=== PATIENT | female | born 1945 | race Caucasian/White ===

== ENCOUNTER → 2020-08-16 09:29 | Outpatient (CLI) | payer MEDICARE, BC, SELFPAY ==
[2020-08-16 11:20] LABS: BUN Creatinine Ratio 38.5 (6-22); Blood Urea Nitrogen 20 mg/dL (7-17); Calcium 10.3 mg/dL (8.4-10.2); Carbon Dioxide 28 mmol/L (22-32); Chloride 104 mmol/L (98-107); Estimated Glomerular Filt Rate > 60.0 mL/min (>60); Glucose 92 mg/dL (80-110); HEMOLYSIS < 15 (0-50); Potassium 4.3 mmol/L (3.4-5.1); Sodium 141 mmol/L (137-145)
== END ==
PROVIDERS: PCP Student in an Organized Health Care Education/Training Program; Referring Provider Student in an Organized Health Care Education/Training Program; Visit Provider Student in an Organized Health Care Education/Training Program
DX: M81.0 Age-related osteoporosis without current pathological fracture (principal); Z78.0 Asymptomatic menopausal state; N14.1 Nephropathy induced by other drugs, medicaments and biological substances; T50.8X5A Adverse effect of diagnostic agents, initial encounter
CPT/HCPCS: 36415; 77080; 80048

== ENCOUNTER → 2020-08-24 15:59 | Outpatient (CLI) | payer MEDICARE, BC, SELFPAY ==
--- NOTE | 2020-08-24 16:01 | DI.MG.S_ITS ---
BILATERAL DIGITAL SCREENING MAMMOGRAM 3D/2D WITH CAD: 08/24/2020 CLINICAL: Routine screening. Family history of breast cancer. Comparison is made to exams dated: 07/11/2019 mammogram, 03/01/2018 mammogram, and 02/06/2017 mammogram - outside location. The tissue of both breasts is heterogeneously dense. This may lower the sensitivity of mammography. Current study was also evaluated with a Computer Aided Detection (CAD) system. No significant masses, calcifications, or other findings are seen in either breast. There has been no significant interval change. IMPRESSION: NEGATIVE There is no mammographic evidence of malignancy. A 1 year screening mammogram is recommended. This exam was interpreted at Station ID: [id number]. NOTE: For mammograms, a report in lay terms will be sent to the patient. Approximately 15% of breast malignancies will not be visualized mammographically. In the management of a palpable breast mass, a negative mammogram must not discourage biopsy of a clinically suspicious lesion. Electronically Signed By: Luís diamond/tim:08/27/2020 09:00:34 letter sent: Normal Exam ACR BI-RADS Category 1: Negative [id number]
[2020-08-24 16:10] LABS: Bacteria Urine None Seen; RBC Urine None Seen (0-5/HPF)
[2020-08-24 17:10] LABS: Prothrombin Time 11.4 SECONDS (10.1-12.7)
[2020-08-24 17:13] LABS: PTT Partial Thromboplastin Tim 33 SECONDS (26.4-36.2)
[2020-08-24 17:28] LABS: Add Manual Diff / Slide Review NO; Basophils Absolute Auto 100 /uL (0-100); Basophils Percent Auto 1.3 % (0-2); Eosinophils Absolute Auto 200 /uL (0-450); Eosinophils Percent Auto 2.7 % (2-4); Hematocrit 40.2 % (36-46); Lymphocytes Absolute Auto 1400 /uL (1100-4500); Lymphocytes Percent Auto 20.2 % (25-40); Mean Corpuscular HGB Conc 32.4 % (30-36); Mean Corpuscular Hemoglobin 29.4 PG (26-34); Mean Corpuscular Volume 90.9 fL (80-100); Monocytes Absolute Auto 600 /uL (0-900); Monocytes Percent Auto 9.5 % (3-14); Neutrophils Absolute Auto 4500 /uL (1500-7000); Neutrophils Percent Auto 66.3 % (50-75); Platelet Count 245 X10^3/uL (150-400); Red Blood Cell Count 4.42 X10^6/uL (4.0-5.2); Red Cell Distribution Width 14.5 % (11.6-14.8); White Blood Cell Count 6.7 X10^3/uL (4.5-11.0)
[2020-08-24 17:43] LABS: Alanine Aminotransferase 44 IU/L (<35); Albumin 4.1 g/dL (3.5-5.0); Albumin Globulin Ratio 1.5 (1.0-2.8); Alkaline Phosphatase 119 U/L (38-126); Aspartate Aminotransferase 37 IU/L (14-36); Bilirubin Total 0.3 mg/dL (0.2-1.3); Bilirubin Unconjugated 0.3 mg/dL (0.0-1.1); Globulin 2.7 g/dL (1.7-4.1); HEMOLYSIS < 15 (0-50); Total Protein 6.8 g/dL (6.3-8.2)
[2020-08-24 18:05] LABS: Appearance Urine UA SL CLOUDY; Bilirubin Urine UA NEGATIVE (NEGATIVE); Color Urine UA YELLOW; Glucose Urine UA NEGATIVE (Negative); Ketones Urine UA NEGATIVE (NEGATIVE); Leukocyte Esterase Urine UA NEGATIVE (NEGATIVE); Nitrite Urine UA NEGATIVE (Negative); Occult Blood Urine UA NEGATIVE (Negative); Protein Urine UA NEGATIVE (Negative); Urobilinogen Urine UA 0.2 E.U./dL (0.2)
[2020-08-24 19:09] LABS: Squamous Epithelial Cell Urine 0-1 /HPF (0-5/HPF); Transitional Epi Cells Urine 0-1/HPF (0-5/HPF); WBC Urine 0-1/HPF (0-5/HPF)
[2020-08-24 19:38] LABS: Culture Indicated Urine Cult Not Indicated
== END ==
PROVIDERS: PCP Student in an Organized Health Care Education/Training Program; Referring Provider Student in an Organized Health Care Education/Training Program; Visit Provider Student in an Organized Health Care Education/Training Program
DX: Z12.31 Encounter for screening mammogram for malignant neoplasm of breast (principal); I10 Essential (primary) hypertension; I60.9 Nontraumatic subarachnoid hemorrhage, unspecified
CPT/HCPCS: 36415; 77063; 77067; 80076; 81001; 85025; 85610; 85730

== ENCOUNTER → 2020-08-29 15:41 | Outpatient (CLI) | payer MEDICARE, BC, SELFPAY ==
[2020-08-29] MEDS: COVID-19 VACC, Ad26(JANSSEN)/PF 0.5 ML IM (15:56)
== END ==
PROVIDERS: PCP Student in an Organized Health Care Education/Training Program; Visit Provider Internal Medicine
DX: Z23 Encounter for immunization (principal)
CPT/HCPCS: 0031A; 91303

== ENCOUNTER 2020-11-01 10:30 | Outpatient (RCR) | payer MEDICARE, BC, SELFPAY ==
--- NOTE | 2020-09-12 17:15 | ST.OPIE ---
Visit Care Team Role Provider Type Gutierrez Friedman MD Attending Provider Physician Primary Care Provider Referring Provider Specialty: Internal Medicine Address: [address] [place] [address], [address], [place], [address] Email: [email or web address] Speech-Language Pathology Initial Evaluation EDIT[employer] Adult Cognitive Linguistic Eval Start: 09/11/20 15:46 Freq: Status: Active Protocol: Document 09/11/20 16:17 HM (Rec: 09/11/20 17:39 HM [id number]) Adult Cognitive Linguistic Evaluation Session Time Visit Start Time 11:30 Visit Stop Time 12:30 Total Visit Minutes 60 Visit Information Visit Number 1 Plan of Care Dates 09/11/20-03/13/21 Insurance Information Medicare Referral Referring Provider Gutierrez Friedman Reason for Referral Cognition and word-finding deficits Setting Assessment Location Outpatient Care Visit Type Note Type Initial evaluation Next Note Type Next Note Type Treatment Note Patient Information Identification Type Name,Address,Date of Medical History Marisa is a 75-year-old female referred by her primary care physician for a cognitive- communication and language assessment due to cognitive impairment and word-finding difficulty. Per chart review and pt report, these symptoms are secondary to a hemorrhagic stroke which occurred in May 2020. Pt received ST/ OT/PT home health services in [place] for one month after the CVA. She recently moved back to [place] to be closer to family, but lives alone. Pt's daughter, Jackelin, attended the evaluation with her. Jackelin reported that pt frequently becomes confused and is unable to complete sequences of events, or sequence parts of a story. Also, pt perseverates during conversation or tasks by getting stuck. Current compensatory strategies used include notes throughout the kitchen with reminders (e.g., turning on or off the oven), and intentional focus during tasks. Occupation Status Retired Hearing Hearing Level Normal Auditory History Pt reported hearing problems, but appeared to hear and understand. Unsure if pt was wearing hearing aids. Vision Vision Status Not Impaired Previous Therapy Previous Speech-Language Therapy Yes: Received home health services in [place] for 1 month post CVA Subjective Mental Status Alert,Responsive,Cooperative Assessment Oral Motor Examination Completed No: Informal observation of structures and function was WNL Informal Assessment Expressive Language Normal No Expressive Language Impairment(s) Confrontation naming, Expression of complex thoughts /ideas Pragmatic Language Normal Yes Speech Normal Yes Cognition Normal No Cognitive Impairment(s) Long-term memory,Executive functioning,Problem solving, Safety awareness Formal Assessment Standardized Test/Screener Type Cognitive Linguistic Quick Test (CLQT) Administration Incomplete Results The CLQT subtest for Story Retelling was not completed, but will be administered during the next session. The results of the CLQT are reported over 5 cognitive domains along with a clock drawing task. The domains assessed include: Attention, Memory, Executive Functions, Language, and Visuospatial Skills. During this visit, Marisa scored WNL for the domains of Executive Functions and Visuospatial Skills. Test tasks which proved to be particularly difficult as Marisa's scores were below criterion levels: 1. Clock drawing (visuospatial planning and conceptualization of time ) and 2. Mazes (planning, self -monitoring, and mental flexibility). The remaining domains of Attention, Memory, and Language will be scored after the following session. In addition to the CLQT, Marisa completed the [place] Naming Test (BNT). The BNT is a normative assessment which measures confrontational word retrieval. Marisa provided 41/ 60 correct spontaneous responses. She had 3 additional responses when provided a stimulus cue, for a total of 44/60 correct. This is below the mean score of 48. 9 for her age group. Findings/Results Language Function Mildly impaired Cognitive Function Mildly impaired Findings While CLQT scores led to a mild severity rating, pt report and below-criterion scores for the Clock Drawing and Mazes tasks indicate difficulty with planning, foresight, self-monitoring, mental flexibility, and visuospatial skills. This suggests overall difficulty with executive functioning such as planning, preparing, completing, and modifying ADL tasks as needed. During practice tasks for the Symbol Trails subtest, ozzie was unable to form a trail alternating between shapes in a cohesive order. Additionally, she made errors when connecting circles of increasing size. When completing the clock drawing, she initially mixed up the short and long hands before attempting to self-correct. Combined, these errors are a noteworthy indication of poor planning, preparation, carry through, and self-evaluation for complex tasks. Marisa's score on the BNT is consistent with reported word- retrieval difficulty. She used circumlocution during moments of anomia. When she could not retreive the word after circumlocution, she responded correctly after given a phonemic cue or multiple choice option. Marisa's diminished cognitive skills impact her ability to plan, execute, and complete her ADLs. Combined with her word retrieval deficits, it would be difficult for her to function and be safe living independently. Cognitive Communication Deficits Self-awareness of Cognitive- Situational awareness ( Communication Deficits recognition of problem in context;in real time) Concomitant Factors Concomitant Factors Hearing loss Comment Pt reported hearing loss. Impact on Functioning Activity Limits/Particip.Rest. Mod: General Tasks and Demands Interpersonal Interactions Community Sev: Household Tasks Safety Risks Mod: Managing Medication Sev: Being Left Alone at Home Reacting to Emergency Traveling Alone in Community Prognosis Prognosis Good Based on Family support,Time since onset Plan of Care Speech-Language Treatment Yes Frequency 1x/week for 60 minutes Duration 6 months Patient/Caregiver Education Patient expressed understanding of evaluation, Patient expressed agreement with goals and treatment plans ,Family/caregivers expressed understanding of evaluation, Family/caregivers expressed agreement with goals and treatment plan,Patient requires further education/ training Short Term Goals Pt/family will identify ADLs that are impacted by cognitive -communication difficulties. Pt/family will utilize a variety of external memory aids for functional planning and safety needs (e.g., whiteboard with important information and plans). Pt/family will produce 5/6 semantic features of an object in 10 opportunities, when given a semantic features visual aid and picture stimulus. Radiologic Technologist Chief Goals Pt/family will demonstrate independent use of external strategies (e.g., memory aids, Ecvn-Drea-Nn-Review) for a variety of tasks. Pt will demonstrate increased communication effectiveness and efficiency by utilizing strategies during moments of anomia (e.g., describing semantic features, gestures). Discharge Recommendations Outpatient therapy [employer] Clinical Instructor Line Start: 09/12/20 16:51 Freq: Status: Active Protocol: Document 09/12/20 16:51 LNK (Rec: 09/12/20 16:51 LNK [id number]) Clinical Instructor Signature Clinical Instructor Clinical Instructor Yes
--- NOTE | 2020-09-21 17:01 | ST.OPTN ---
Visit Care Team Role Provider Type Gutierrez Friedman MD Attending Provider Physician Primary Care Provider Referring Provider Address: [address] [place] [address], [address], [place], [address] SOLDERER TORCH Treatment Note SOLDERER [employer]CH Clinical Instructor Line Start: 09/12/20 16:51 Freq: Status: Active Protocol: Document 09/21/20 15:05 LNK (Rec: 09/21/20 15:05 LNK [id number]) Clinical Instructor Signature Clinical Instructor Clinical Instructor Yes SOLDERER TORCH Treatment Note Start: 09/11/20 15:46 Freq: Status: Active Protocol: Document 09/18/20 16:51 HM (Rec: 09/18/20 17:49 HM [id number]) Speech Pathology Treatment Note Session Time Visit Start Time 03:30 Visit Stop Time 04:30 Total Visit Minutes 60 Visit Information Visit Number 2 Plan of Care Dates 09/11/20-03/13/21 Insurance Information Medicare Setting Treatment Setting Outpatient Care Visit Type Note Type Treatment Note Next Note Type Next Note Type Treatment Note General Information General Information Marisa is a 75-year-old female referred by her primary care physician for a cognitive- communication and language assessment due to cognitive impairment and word-finding difficulty. Per chart review and pt report, these symptoms are secondary to a hemorrhagic stroke which occured in May 2020. Pt received ST/ OT/PT home health services in [place] for one month after the CVA. She recently moved back to [place] to be closer to family, but lives alone. Pt's daughter, Jackelin, attended the evaluation with her. Jackelin reported that pt frequently becomes confused and is unable to complete sequences of events, or sequence parts of a story. Also, pt perseverates during conversation or tasks by getting stuck. Current compensatory strategies used include notes throughout the kitchen with reminders (e.g., turning on or off the oven), and intentional focus during tasks. Subjective Identification Type Name Identification Reconciled With Medical Record Others Present Family Observations/Patient Presentation Marisa's daughter, Jackelin, was present during the session. She reported a neurologist visit is scheduled for November. Chief Complaint(s) Language,Cognitive Rehab Expectation/Goals: Patient Goals Increase independence and do things like she used to. Patient Knowledge/Awareness of SOLDERER [employer]ORCH Role Excellent in Treatment Parent/Caretake Knowledge/Awareness of Excellent SOLDERER [employer]ORCH Role in Treatment Patient/Caregiver Compliance with Home Excellent Exercise Program Objective Short Term Goals Pt/family will identify ADLs that are impacted by cognitive -communication difficulties. Pt/family will utilize a variety of external memory aids for functional planning and safety needs (e.g., whiteboard with important information and plans). Pt/family will produce 5/6 semantic features of an object in 10 opportunities, when given a semantic features visual aid and picture stimulus. Prison Goals Pt/family will demonstrate independent use of external strategies (e.g., memory aids, Sawx-Razz-Mo-Review) for a variety of tasks. Pt will demonstrate increased communication effectiveness and efficiency by utilizing strategies during moments of anomia (e.g., describing semantic features, gestures). Treatment Activities Marisa completed one subtest of the CLQT that wasn't completed during her evaluation. The findings of her overall scores are consistent with mild cognitive deficits impacting overall executive functioning. These scores were discussed with Mairsa and Jackelin. In particular , driving was discussed and how difficulty with planning, monitoring, and evaluating self-performance impact safety while driving. Marisa reported she has a command center with a large calendar and whiteboard for tracking important appointments and dates. Pt completed a list of high priority yet challenging tasks , including balancing a checkbook, driving, and scheduling appointments. Pt and daughter, Jackelin, identified steps to ease scheduling challenges. Pt was provided a GPDR worksheet for balancing a checkbook. Introduced Semantic Feature Analysis (SFA) in order to develop word-finding skills and communicative strategies during moments of anomia. Pt completed SFA for 3 objects, identifying 5/6 features when provided question prompts. Assessment Patient Response to Treatment Excellent Rehab Potential Excellent Impairments Identified ADLs,Cognitive-Linguistic Skills,Expressive Language, Memory - Working,Problem Solving Progress Towards Goals Good Progress Assessment of Overall Progress Improving,Unchanged Assessment of Improvement Marisa has developed some excellent strategies for organizing important dates and information at home. Word- finding and working memory/ executive functioning continues to be a challenge. Recommend additional practice with SFA and utilizing external and internal memory aides. Reviewed with Patient Goals,Home Exercise Program Patient/Caregiver Understanding Excellent Plan Amount of Therapy Recommended 6 Months Frequency of Treatment Once a Week Length of Session 60 Minutes Therapeutic Contents Client Education,Cognitive- Linguistic Training,Expressive Language Training,Home Exercise Program Therapy Recommendations Continue with Current Program, Recommended Exercises/ Activities
--- NOTE | 2020-09-25 16:57 | ST.OPTN ---
Visit Care Team Role Provider Type Gutierrez Friedman MD Attending Provider Physician Primary Care Provider Referring Provider Address: [address] [place] [address], [address], [place], [address] MANAGER STRATEGIC Treatment Note MANAGER STRATEGIC Clinical Instructor Line Start: 09/12/20 16:51 Freq: Status: Active Protocol: Document 09/25/20 16:53 LNK (Rec: 09/25/20 16:53 LNK [email or web address]) Clinical Instructor Signature Clinical Instructor Clinical Instructor Yes MANAGER STRATEGIC Treatment Note Start: 09/11/20 15:46 Freq: Status: Active Protocol: Document 09/25/20 16:23 HM (Rec: 09/25/20 16:36 HM [id number]) Speech Pathology Treatment Note Session Time Visit Start Time 15:30 Visit Stop Time 16:15 Total Visit Minutes 45 Visit Information Visit Number 3 Plan of Care Dates 09/11/20-03/13/21 Insurance Information Medicare Setting Treatment Setting Outpatient Care Visit Type Note Type Treatment Note Next Note Type Next Note Type Treatment Note General Information General Information Marisa is a 75-year-old female referred by her primary care physician for a cognitive- communication and language assessment due to cognitive impairment and word-finding difficulty. Per chart review and pt report, these symptoms are secondary to a hemorrhagic stroke which occurred in May 2020. Pt received ST/ OT/PT home health services in [place] for one month after the CVA. She recently moved back to [place] to be closer to family, but lives alone. Pt's daughter, Jackelin, attended the evaluation with her. Jackelin reported that pt frequently becomes confused and is unable to complete sequences of events, or sequence parts of a story. Also, pt perseverates during conversation or tasks by getting stuck. Current compensatory strategies used include notes throughout the kitchen with reminders (e.g., turning on or off the oven), and intentional focus during tasks. Subjective Identification Type Name Identification Reconciled With Medical Record Observations/Patient Presentation Marisa attended the appointment on her own. Chief Complaint(s) Language,Cognitive Rehab Expectation/Goals: Patient Goals Increase independence and do things like she used to. Patient Knowledge/Awareness of MANAGER STRATEGIC Role Excellent in Treatment Parent/Caretake Knowledge/Awareness of Excellent MANAGER STRATEGIC Role in Treatment Patient/Caregiver Compliance with Home Excellent Exercise Program Objective Short Term Goals Pt/family will identify ADLs that are impacted by cognitive -communication difficulties. Pt/family will utilize a variety of external memory aids for functional planning and safety needs (e.g., whiteboard with important information and plans). Pt/family will produce 5/6 semantic features of an object in 10 opportunities, when given a semantic features visual aid and picture stimulus. Customs Compliance Specialist Goals Pt/family will demonstrate independent use of external strategies (e.g., memory aids, Qdea-Bcdq-Yb-Review) for a variety of tasks. Pt will demonstrate increased communication effectiveness and efficiency by utilizing strategies during moments of anomia (e.g., describing semantic features, gestures). Treatment Activities Marisa brought her completed SFA forms and reviewed these with the clinician to clarify questions around the categories. Marisa reported that scheduling appointments has been okay when Jackelin gives her available times for providing transportation. Once Marisa has the times, she calls and schedule appointments independently. Marisa and the clinician developed a plan for organizing important documents and records into filing cabinets, including categories (e.g., financial) with subcategories (e.g, bills, taxes, bank statements, etc.) for files. Marisa was encouraged to sort and destroy any documents that are not necessary to keep. She was given a [employer] form for file organization. Assessment Patient Response to Treatment Excellent Rehab Potential Excellent Impairments Identified ADLs,Cognitive-Linguistic Skills,Expressive Language, Memory - Working,Problem Solving Progress Towards Goals Good Progress Assessment of Overall Progress Improving,Unchanged Assessment of Improvement Marisa has some large organizational projects coming up after her recent move with boxes on their way. Recommend additional discussion and strategy use to support completion of complex multi- step tasks. Marisa may benefit from additional practice with SFA to facilitate word-finding strategy use. Recommend discussion around [place] [employer] for when Jackelin is unable to provide transportation. Reviewed with Patient Goals,Home Exercise Program Patient/Caregiver Understanding Excellent Plan Amount of Therapy Recommended 6 Months Frequency of Treatment Once a Week Length of Session 60 Minutes Therapeutic Contents Client Education,Cognitive- Linguistic Training,Expressive Language Training,Home Exercise Program Therapy Recommendations Continue with Current Program, Recommended Exercises/ Activities
--- NOTE | 2020-10-02 17:44 | ST.OPTN ---
Visit Care Team Role Provider Type Gutierrez Friedman MD Attending Provider Physician Primary Care Provider Referring Provider Address: [address] [place] [address], [address], [place], [address] MEDICAL INSTRUMENT TECHNICIAN Treatment Note MEDICAL INSTRUMENT TECHNICIAN Clinical Instructor Line Start: 09/12/20 16:51 Freq: Status: Active Protocol: Document 10/02/20 17:26 LNK (Rec: 10/02/20 17:26 LNK [id number]) Clinical Instructor Signature Clinical Instructor Clinical Instructor Yes MEDICAL INSTRUMENT TECHNICIAN Treatment Note Start: 09/11/20 15:46 Freq: Status: Active Protocol: Document 10/02/20 16:44 HM (Rec: 10/02/20 16:53 HM [email or web address]) Speech Pathology Treatment Note Session Time Visit Start Time 15:30 Visit Stop Time 16:15 Total Visit Minutes 45 Visit Information Visit Number 4 Plan of Care Dates 09/11/20-03/13/21 Insurance Information Medicare Setting Treatment Setting Outpatient Care Visit Type Note Type Treatment Note Next Note Type Next Note Type Treatment Note General Information General Information Marisa is a 75-year-old female referred by her primary care physician for a cognitive- communication and language assessment due to cognitive impairment and word-finding difficulty. Per chart review and pt report, these symptoms are secondary to a hemorrhagic stroke which occurred in May 2020. Pt received ST/ OT/PT home health services in [place] for one month after the CVA. She recently moved back to [place] to be closer to family, but lives alone. Pt's daughter, Jackelin, attended the evaluation with her. Jackelin reported that pt frequently becomes confused and is unable to complete sequences of events, or sequence parts of a story. Also, pt perseverates during conversation or tasks by getting stuck. Current compensatory strategies used include notes throughout the kitchen with reminders (e.g., turning on or off the oven), and intentional focus during tasks. Subjective Identification Type Name Identification Reconciled With Medical Record Observations/Patient Presentation Marisa's daughter, Jackelin, was present during the session. Jackelin reported Marisa has had two occasions of walking downhill with crooked posture. Discussed a referral for PT to address possible vestibular changes post-stroke . Marisa is receiving new hearing aids tomorrow. Chief Complaint(s) Language,Cognitive Rehab Expectation/Goals: Patient Goals Increase independence and do things like she used to. Patient Knowledge/Awareness of MEDICAL INSTRUMENT TECHNICIAN Role Excellent in Treatment Parent/Caretake Knowledge/Awareness of Excellent MEDICAL INSTRUMENT TECHNICIAN Role in Treatment Patient/Caregiver Compliance with Home Excellent Exercise Program Objective Short Term Goals Pt/family will identify ADLs that are impacted by cognitive -communication difficulties. Pt/family will utilize a variety of external memory aids for functional planning and safety needs (e.g., whiteboard with important information and plans). Pt/family will produce 5/6 semantic features of an object in 10 opportunities, when given a semantic features visual aid and picture stimulus. Boom Tender Goals Pt/family will demonstrate independent use of external strategies (e.g., memory aids, Rzpl-Dgwv-Wq-Review) for a variety of tasks. Pt will demonstrate increased communication effectiveness and efficiency by utilizing strategies during moments of anomia (e.g., describing semantic features, gestures). Treatment Activities Marisa brought her completed SFA forms and reviewed these with the clinician to clarify questions around the categories. Discussed possibility of [place] [employer], although Marisa was hesitant to this idea. Jackelin suggested a trial run together to see if it would be a good option. Marisa described nouns using at least five Semantic Feature Analysis categories in 60% of opportunities. A home practice program was discussed, includin) practicing SFA with a guessing game such as Head's Up and 2) practicing conversation with uncommon topics to facilitate word retrieval and thought organization. Assessment Patient Response to Treatment Excellent Rehab Potential Excellent Impairments Identified ADLs,Cognitive-Linguistic Skills,Expressive Language, Memory - Working,Problem Solving Progress Towards Goals Good Progress Assessment of Overall Progress Improving,Unchanged Assessment of Improvement Recommend additional discussion and strategy use to support completion of complex multi-step tasks. Marisa may benefit from additional practice with SFA and uncommon conversation topics to facilitate word-finding strategy use. Recommend further discussion around [place] [employer] for when Jackelin is unable to provide transportation. Reviewed with Patient Goals,Home Exercise Program Patient/Caregiver Understanding Excellent Plan Amount of Therapy Recommended 6 Months Frequency of Treatment Once a Week Length of Session 60 Minutes Therapeutic Contents Client Education,Cognitive- Linguistic Training,Expressive Language Training,Home Exercise Program Therapy Recommendations Continue with Current Program, Recommended Exercises/ Activities
--- NOTE | 2020-10-16 17:34 | ST.OPTN ---
Visit Care Team Role Provider Type Gutierrez Friedman MD Attending Provider Physician Primary Care Provider Referring Provider Address: [address] [place] [address], [address], [place], [address] SUPERINTENDENT TRANSMISSION Treatment Note SUPERINTENDENT TRANSMISSION Clinical Instructor Line Start: 09/12/20 16:51 Freq: Status: Active Protocol: Document 10/16/20 17:02 LNK (Rec: 10/16/20 17:02 LNK [email or web address]) Clinical Instructor Signature Clinical Instructor Clinical Instructor Yes SUPERINTENDENT TRANSMISSION Treatment Note Start: 09/11/20 15:46 Freq: Status: Active Protocol: Document 10/16/20 16:32 HM (Rec: 10/16/20 16:39 HM [id number]) Speech Pathology Treatment Note Session Time Visit Start Time 15:30 Visit Stop Time 16:15 Total Visit Minutes 45 Visit Information Visit Number 6 Plan of Care Dates 09/11/20-03/13/21 Insurance Information Medicare Setting Treatment Setting Outpatient Care Visit Type Note Type Treatment Note Next Note Type Next Note Type Treatment Note General Information General Information Marisa is a 75-year-old female referred by her primary care physician for a cognitive- communication and language assessment due to cognitive impairment and word-finding difficulty. Per chart review and pt report, these symptoms are secondary to a hemorrhagic stroke which occured in May 2020. Pt received ST/ OT/PT home health services in [place] for one month after the CVA. She recently moved back to [place] to be closer to family, but lives alone. Pt's daughter, Jackelin, attended the evaluation with her. Jackelin reported that pt frequently becomes confused and is unable to complete sequences of events, or sequence parts of a story. Also, pt perseverates during conversation or tasks by getting stuck. Current compensatory strategies used include notes throughout the kitchen with reminders (e.g., turning on or off the oven), and intentional focus during tasks. Subjective Identification Type Name Identification Reconciled With Medical Record Observations/Patient Presentation Marisa's daughter, Jackelin, was present during the session. Chief Complaint(s) Language,Cognitive Rehab Expectation/Goals: Patient Goals Increase independence and do things like she used to. Patient Knowledge/Awareness of SUPERINTENDENT TRANSMISSION Role Excellent in Treatment Parent/Caretake Knowledge/Awareness of Excellent SUPERINTENDENT TRANSMISSION Role in Treatment Patient/Caregiver Compliance with Home Excellent Exercise Program Objective Short Term Goals Pt/family will identify ADLs that are impacted by cognitive -communication difficulties. Pt/family will utilize a variety of external memory aids for functional planning and safety needs (e.g., whiteboard with important information and plans). Pt/family will produce 5/6 semantic features of an object in 10 opportunities, when given a semantic features visual aid and picture stimulus. Skilled Nursing Goals Pt/family will demonstrate independent use of external strategies (e.g., memory aids, [id number]-[id number]-[id number]-Review) for a variety of tasks. Pt will demonstrate increased communication effectiveness and efficiency by utilizing strategies during moments of anomia (e.g., describing semantic features, gestures). Treatment Activities Pt reported she tried to contact the [facility] but couldn't get through. Provided pt with list of upcoming events, as well as information on a local [employer] organization. After a general check-in on memory and completion of tasks/ADLs, Marisa reported that she feels she is getting better. She notices her sustained attention while reading has improved when she reads easier books. Overall, attention to tasks is the concern at this time. Recommended setting a timer for 10 minutes to chip away at necessary tasks. Trialed various iPad applications to target attention and focus, including Luminosity, MindGames, and Wordscapes. Pt was eager to practice these at home. Assessment Patient Response to Treatment Excellent Rehab Potential Excellent Impairments Identified ADLs,Cognitive-Linguistic Skills,Expressive Language, Memory - Working,Problem Solving Progress Towards Goals Good Progress Assessment of Overall Progress Improving Assessment of Improvement Recommend continued counseling around volunteer opportunities and community events in the area. Marisa has made excellent progress with implementing strategies she's been given for word-finding and completing tasks. Continue to monitor her motivation to complete tasks and attention required to do so. Reviewed with Patient Goals,Home Exercise Program Patient/Caregiver Understanding Excellent Plan Amount of Therapy Recommended 6 Months Frequency of Treatment Once a Week Length of Session 60 Minutes Therapeutic Contents Client Education,Cognitive- Linguistic Training,Expressive Language Training,Home Exercise Program Therapy Recommendations Continue with Current Program, Recommended Exercises/ Activities
--- NOTE | 2020-11-01 12:06 | ST.OPTN ---
Visit Care Team Role Provider Type Gutierrez Friedman MD Attending Provider Physician Primary Care Provider Referring Provider Address: [address] [place] [address], [address], [place], [address] CHILD CARE PROVIDER Treatment Note CHILD CARE PROVIDER Clinical Instructor Line Start: 09/12/20 16:51 Freq: Status: Active Protocol: Document 10/16/20 17:02 LNK (Rec: 10/16/20 17:02 LNK [email or web address]) Clinical Instructor Signature Clinical Instructor Clinical Instructor Yes CHILD CARE PROVIDER Treatment Note Start: 09/11/20 15:46 Freq: Status: Active Protocol: Document 11/01/20 10:37 LNK (Rec: 11/01/20 12:06 LNK [email or web address]) Speech Pathology Treatment Note Session Time Visit Start Time 10:30 Visit Stop Time 11:30 Total Visit Minutes 60 Visit Information Visit Number 7 Plan of Care Dates 09/11/20-03/13/21 Insurance Information Medicare Setting Treatment Setting Outpatient Care Visit Type Note Type Treatment Note Next Note Type Next Note Type Treatment Note General Information General Information Marisa is a 75-year-old female referred by her primary care physician for a cognitive- communication and language assessment due to cognitive impairment and word-finding difficulty. Per chart review and pt report, these symptoms are secondary to a hemorrhagic stroke which occured in May 2020. Pt received ST/ OT/PT home health services in [place] for one month after the CVA. She recently moved back to [place] to be closer to family, but lives alone. Pt's daughter, Jackelin, attended the evaluation with her. Jackelin reported that pt frequently becomes confused and is unable to complete sequences of events, or sequence parts of a story. Also, pt perseverates during conversation or tasks by getting stuck. Current compensatory strategies used include notes throughout the kitchen with reminders (e.g., turning on or off the oven), and intentional focus during tasks. Subjective Identification Type Name Identification Reconciled With Medical Record Observations/Patient Presentation Marisa's daughter, Jackelin, was present during the session. Chief Complaint(s) Language,Cognitive Rehab Expectation/Goals: Patient Goals Increase independence and do things like she used to. Patient Knowledge/Awareness of CHILD CARE PROVIDER Role Excellent in Treatment Parent/Caretake Knowledge/Awareness of Excellent CHILD CARE PROVIDER Role in Treatment Patient/Caregiver Compliance with Home Excellent Exercise Program Objective Short Term Goals Pt/family will identify ADLs that are impacted by cognitive -communication difficulties. Pt/family will utilize a variety of external memory aids for functional planning and safety needs (e.g., white board with important information and plans). Pt/family will produce 5/6 semantic features of an object in 10 opportunities, when given a semantic features visual aid and picture stimulus. Fpc Goals Pt/family will demonstrate independent use of external strategies (e.g., memory aids, Uoza-Uwoh-Ew-Review) for a variety of tasks. Pt will demonstrate increased communication effectiveness and efficiency by utilizing strategies during moments of anomia (e.g., describing semantic features, gestures). Treatment Activities After a general check-in on memory and completion of tasks /ADLs, Marisa reported that she feeling better. She has started Lumocity and enjoys the activity. Today we played [email or web address] on the iPad to target executive functioning: planning , evaluation, executing, tracking ascending as well as descending numbers/ cards and to strategize. Marisa enjoyed the activity. She continues to target attention activities as she can become easily distracted. Continue to explore computer activities including Luminosity, MindGames, and Wordscapes. Assessment Patient Response to Treatment Excellent Rehab Potential Excellent Impairments Identified ADLs,Cognitive-Linguistic Skills,Expressive Language, Memory - Working,Problem Solving Progress Towards Goals Good Progress Assessment of Overall Progress Improving Assessment of Improvement Recommend continued counseling around volunteer opportunities and community events in the area. Marisa has made excellent progress with implementing strategies she's been given for word-finding and completing tasks. Continue to monitor her motivation to complete tasks and attention required to do so. Reviewed with Patient Goals,Home Exercise Program Patient/Caregiver Understanding Excellent Plan Amount of Therapy Recommended 6 Months Frequency of Treatment Once a Week Length of Session 60 Minutes Therapeutic Contents Client Education,Cognitive- Linguistic Training,Expressive Language Training,Home Exercise Program Therapy Recommendations Continue with Current Program, Recommended Exercises/ Activities
--- NOTE | 2021-01-01 16:59 | ST.OPDS ---
Visit Care Team Role Provider Type Gutierrez Friedman MD Attending Provider Physician Primary Care Provider Referring Provider Address: [address] [place] [address], [address], [place], [address] WIRE WEB WORKER Treatment Note WIRE WEB WORKER Clinical Instructor Line Start: 09/12/20 16:51 Freq: Status: Active Protocol: Document 10/16/20 17:02 LNK (Rec: 10/16/20 17:02 LNK [email or web address]) Clinical Instructor Signature Clinical Instructor Clinical Instructor Yes WIRE WEB WORKER Treatment Note Start: 09/11/20 15:46 Freq: Status: Active Protocol: Document 01/01/21 16:57 LNK (Rec: 01/01/21 16:58 LNK [email or web address]) Speech Pathology Treatment Note Visit Type Note Type Discharge Summary General Information General Information Marisa is a 75-year-old female referred by her primary care physician for a cognitive- communication and language assessment due to cognitive impairment and word-finding difficulty. Per chart review and pt report, these symptoms are secondary to a hemorrhagic stroke which occured in May 2020. Pt received ST/ OT/PT home health services in [place] for one month after the CVA. She recently moved back to [place] to be closer to family, but lives alone. Pt's daughter, Jackelin, attended the evaluation with her. Jackelin reported that pt frequently becomes confused and is unable to complete sequences of events, or sequence parts of a story. Also, pt perseverates during conversation or tasks by getting stuck. Current compensatory strategies used include notes throughout the kitchen with reminders (e.g., turning on or off the oven), and intentional focus during tasks. Subjective Chief Complaint(s) Language,Cognitive Rehab Expectation/Goals: Patient Goals Increase independence and do things like she used to. Objective Short Term Goals Pt/family will identify ADLs that are impacted by cognitive -communication difficulties. Pt/family will utilize a variety of external memory aids for functional planning and safety needs (e.g., white board with important information and plans). Pt/family will produce 5/6 semantic features of an object in 10 opportunities, when given a semantic features visual aid and picture stimulus. Assessment Patient Response to Treatment Excellent Progress Towards Goals Good Progress Assessment of Overall Progress Improving Assessment of Improvement pt has not returned to this clinic since 11/01/20. Will discharge at this time Plan Therapy Recommendations Discharge from Speech Therapy
== END 2021-01-02 14:37 | disposition home or self-care (01) ==
LOC: SP 10:30
PROVIDERS: PCP Student in an Organized Health Care Education/Training Program; Referring Provider Student in an Organized Health Care Education/Training Program; Visit Provider Student in an Organized Health Care Education/Training Program
DX: R41.89 Other symptoms and signs involving cognitive functions and awareness (principal); I61.9 Nontraumatic intracerebral hemorrhage, unspecified
CPT/HCPCS: 96125; 97129; 97130

== ENCOUNTER → 2021-09-19 15:06 | Outpatient (CLI) | payer MEDICARE, BC, SELFPAY ==
--- NOTE | 2021-09-19 | DI.MG.S_ITS ---
BILATERAL DIGITAL SCREENING MAMMOGRAM 3D/2D WITH CAD: 09/19/2021 CLINICAL: Routine screening. Family history of breast cancer. Comparison is made to exams dated: 08/24/2020 mammogram - [facility], 03/01/2018 mammogram, and 07/11/2019 mammogram - outside location. The tissue of both breasts is heterogeneously dense. This may lower the sensitivity of mammography. Current study was also evaluated with a Computer Aided Detection (CAD) system. No significant masses, calcifications, or other findings are seen in either breast. There has been no significant interval change. IMPRESSION: NEGATIVE There is no mammographic evidence of malignancy. A 1 year screening mammogram is recommended. This exam was interpreted at Station ID: [id number]. NOTE: For mammograms, a report in lay terms will be sent to the patient. Approximately 15% of breast malignancies will not be visualized mammographically. In the management of a palpable breast mass, a negative mammogram must not discourage biopsy of a clinically suspicious lesion. Electronically Signed By: Casper mckeon/tim:09/19/2021 16:11:41 letter sent: Normal Exam ACR BI-RADS Category 1: Negative [id number]
== END ==
PROVIDERS: PCP Student in an Organized Health Care Education/Training Program; Referring Provider Student in an Organized Health Care Education/Training Program; Visit Provider Student in an Organized Health Care Education/Training Program
DX: Z12.31 Encounter for screening mammogram for malignant neoplasm of breast (principal); Z80.3 Family history of malignant neoplasm of breast
CPT/HCPCS: 77063; 77067

== ENCOUNTER → 2022-02-18 16:22 | Outpatient (CLI) | payer MEDICARE, BC, SELFPAY ==
--- NOTE | 2022-02-18 16:23 | DI.RAD.S_ITS ---
PROCEDURE: XR HIP W PEL IF DONE LT 2V INDICATIONS: Hip injury TECHNIQUE: AP pelvis with lateral view(s) of the left hip(s). COMPARISON: None. FINDINGS: Bones: Suspect minimally displaced left femoral neck fracture. Pelvic ring appears intact. No suspicious bony lesions. Mild sacroiliac joint degeneration bilaterally. Soft tissues: The visualized bowel gas pattern is normal. No suspicious soft tissue calcifications. IMPRESSION: Suspect minimally displaced left femoral neck fracture. If clinically indicated, CT would be helpful. Dictated by: Maci Enriquez M.D. on 02/18/2022 at 17:12 Approved by: Maci Enriquez M.D. on 02/18/2022 at 17:14
== END ==
PROVIDERS: PCP Student in an Organized Health Care Education/Training Program; Referring Provider Student in an Organized Health Care Education/Training Program; Visit Provider Student in an Organized Health Care Education/Training Program
DX: S79.912A Unspecified injury of left hip, initial encounter (principal); X58.XXXA Exposure to other specified factors, initial encounter
CPT/HCPCS: 73502

== ENCOUNTER 2022-02-20 06:25 | Day surgery (SDC) | payer MEDICARE, BC, SELFPAY ==
[2022-02-19 15:12] VITALS: BMI 21.2
[2022-02-20] VITALS (10 sets, daily range): BP systolic 97–140; BP diastolic 47–71; PULSE 57–79; RESP 9–18; TEMP 36.2–36.8; O2SAT 96–100; BMI 21.2
[2022-02-20 07:34] LABS: COVID19 -Nasal RAPID Negative (Negative)
--- NOTE | 2022-02-20 07:39 | P.HP_ITS ---
History of Present Illness History of Present Illness Date Patient Seen: 02/20/22 Time Patient Seen: 07:39 Chief complaint: PERCUTANEOUS PINNING OF L FEMORAL NECK FX Narrative: Marisa is a 76 yo female here with her daughter for surgery after sustaining a fall 3 days ago. She was seen in the ED and imaging was taken demonstrating a Left FNFx. She has been able to bear weight although with pain. No pain at rest. No distal numbness or tingling. No other complaints at this time. Patient History Medical History Cervical cancer (~2018) Essential hypertension History of endometrial cancer HLD (hyperlipidemia) Hydrocephalus (~2020) Osteoporosis (~2001) Stroke, hemorrhagic (~2020) Subarachnoid hemorrhage Uterine cancer (~2018) Surgical History Anesthesia History of hysterectomy (~04/2019) Status post ventricular shunt placement (~06/2020) Family & Social History Family History Father Stroke Mother No problems noted. Tobacco & Substance use: Smoking Status Never smoker alcohol intake current alcohol intake frequency a few times a week Substance Use Type does not use Meds Home Medications and Allergies Home Medications Medication Instructions Recorded Confirmed Type atorvastatin 40 mg tablet 40 mg PO DAILY 08/07/20 02/20/22 History magnesium oxide 400 mg PO DAILY 08/07/20 02/20/22 History melatonin 3 mg capsule 3 mg PO BEDTIME PRN Sleep 08/07/20 02/20/22 History valsartan 160 mg tablet 160 mg PO DAILY #90 tabs 12/09/21 02/20/22 Rx Allergies Allergy/AdvReac Type Severity Reaction Status Date / Time denosumab [From Prolia] Allergy Mild rash all Verified 02/20/22 07:08 over body Review of Systems Review of Systems ROS: Yes All systems reviewed with the patient and are negative except as otherwise documented Exam Vital Signs (past 8 hours): - 02/20/22 07:09 Temperature 98.2 F Pulse Rate 63 Respiratory Rate 16 Blood Pressure 140/70 Pulse Oximetry 98 Oxygen Delivery Method Room Air Oxygen Delivery Method Room Air Narrative Exam Narrative: HEENT: Head atraumatic Respiratory: Breathing comfortably on room air Cardiovascular: Extremities are warm and well perfused Psychiatric: Appropriate mood and affect Neurologic: No acute deficits Exam of the left lower extremity demonstrates small amount pain with log roll. Range of motion not tested due to known injury. Distally sensation intact to light touch in L2 through S2. 2+ dorsalis pedis pulse with brisk capillary refill less than 2 seconds. Objective Labs Labs: Laboratory Results - last 24 hr 02/20/22 07:03 SARS-CoV-2 (PCR) Negative Assessment & Plan Assessment and plan (1) Fracture of femoral neck, left: Status: Acute Plan Discussed exam and imaging with patient and her daughter. We went over treatment options including non operative treatment with protected weight- bearing for minimum of 6 weeks with the understood risk that the fracture may displace, which would require a hip hemiarthroplasty. The alternative was operative treatment with percutaneous pinning to protect the femoral neck which would allow immediate weight-bearing. She wished to go forward with otherwise attending her. The risks and benefits of surgery were discussed with patient and her daughter including the risk of infection, bleeding, internal damage to structures, and failure of the surgery requiring reoperation. No guarantees were made regarding outcomes. She accepts the risks and wished to go forward with surgery. Time Spent With Patient Critical Care time: I spent a total of [] minutes of critical care time on this patient's care today; this time is exclusive of procedural time.
[2022-02-20] MEDS: ACETAMINOPHEN 325 MG TABLET 650 MG PO (07:48)
[2022-02-20] MEDS: LACTATED RINGERS 1,000 ML 42 ML IV (07:49)
[2022-02-20] MEDS: CEFAZOLIN VIAL 1 GM in SODIUM CHLORIDE 0.9% 100 ML IV (08:15)
--- NOTE | 2022-02-20 08:49 | SUR.OPER ---
on padded mattress old spine table, gel axillary roll pillows between arms, several rolls of tape securing legs , torso on table, pillow under head
[2022-02-20] MEDS: BUPIVACAINE 0.25% (PF) 30 ML, EPINEPHrine 0.15 MG INJ (08:57)
--- NOTE | 2022-02-20 09:51 | P.OP_ITS ---
Operative Date/Time/Diagnoses Date of procedure: 02/20/22 Time of procedure: 09:51 Pre-op diagnosis: Left valgus impacted femoral neck fracture Post-op diagnosis: same Procedure & Clinicians Procedure: Percutaneous pinning left femoral neck fracture Same procedure as scheduled: Yes Indications: This is a 76-year-old female who sustained a left femoral neck fracture after a fall. This is a valgus impacted fracture that she was able to bear weight on however in pain. Due to the risk of displacing the fracture if she continued weight-bearing versus the alternative of protected weight-bearing for 6 weeks, she wished to go forward with operative fixation. Surgeon: Salvatore Reed Click Yes if Unassisted: Yes Anesthesia Type: General Operative Notes Findings: Preoperatively the patient's identity was verified. The left hip was verified and the site of surgery was marked. Prophylactic antibiotics were administered. The patient was taken to the operating room and anesthesia was established. Patient was positioned supine on the table. A C-arm was then brought into the area and positioned perpendicularly to allow visualization of the hip and AP and lateral planes. The fracture was maintained reduced by itself without traction. The lateral surface of the hip was sterilely prepped after which a vertical isolation drape was placed. The surgical team paused in the patient's identity, surgical procedure, and surgical site were verified. Through separate 2.8 mm guidewires were inserted percutaneously in an inverted triangle pattern with the inferior guidewire starting at the lateral cortex of the femur at or slightly above the level of the lesser trochanter. This was aimed center of the neck and center of the femoral head in the lateral plane. Next 2 guidewires were placed superior in the neck and slightly diverging in an anterior and posterior plane respectively, taking care to avoid the piriformis fossa on the posterior pin. Small incisions were made over each pin the depth gauge was measured off the cortex. Three separate 7.3 mm partially-threaded, self-tapping Synthes cannulated screws were placed over the pin starting with the inferior pin. Good position was noted on the AP and lateral plane there was no breach of the femoral head using the approach withdrawal fluoroscopic technique using the C- arm. The wounds were copiously irrigated and infiltrated with 0.25% Marcaine with epinephrine. The skin was then closed with shelby after which sterile dressings were applied. The patient was then transferred from the table to the hospital bed. Disposition: The patient was taken to the recovery room in stable condition having tolerated procedure without difficulty. Closure Type: primary Specimen(s): none sent Estimated Blood Loss (mL): 5 Blood products transfused: none Complications: none Post-operative Condition: stable Disposition: PACU Plan for aftercare: Postoperatively, patient may be weight-bearing as tolerated. Instructed to stand and walk 3 times a day. She will have aspirin 81 mg b.i.d. for DVT prophylaxis. Follow-up in 2 weeks in clinic for staple removal.
--- NOTE | 2022-02-20 10:12 | DI.RAD.S_ITS ---
PROCEDURE: XR HIP W PEL IF DONE LT 2V INDICATIONS: LEFT HIP PINNING TECHNIQUE: 2 view(s) of the hip acquired. COMPARISON: [facility], CR, XR HIP W PEL IF DONE LT 2V, 02/18/2022, 16:24. FINDINGS: Bones: 3 cannulated screws are now present within the left femoral neck. Fracture fragments are in anatomic alignment. Soft tissues: Overlying postoperative changes are noted. No suspicious soft tissue densities. IMPRESSION: Status post ORIF of a left neck femoral fracture. Dictated by: Marli Briones M.D. on 02/20/2022 at 12:06 Approved by: Marli Briones M.D. on 02/20/2022 at 12:07
[2022-02-20] MEDS: OXYCODONE IR 5 MG TABLET PO (10:15)
--- NOTE | 2022-02-21 06:54 | PM.PNPO.1 ---
Exam Vital Signs (past 8 hours): Oxygen Delivery Method Room Air Oxygen Flow Rate 0 Objective Labs Labs: Laboratory Results - last 24 hr 02/20/22 07:03 SARS-CoV-2 (PCR) Negative PFSH Medical History Cervical cancer (~2018) Essential hypertension History of endometrial cancer HLD (hyperlipidemia) Hydrocephalus (~2020) Osteoporosis (~2001) Stroke, hemorrhagic (~2020) Subarachnoid hemorrhage Uterine cancer (~2018) Surgical History Anesthesia History of hysterectomy (~04/2019) Status post ventricular shunt placement (~06/2020) Family History Father Stroke Mother No problems noted. Social History Smoking Status: Never smoker alcohol intake: current Assessment & Plan Post-op Assessment and plan (1) Fracture of femoral neck, left: Assessment and Plan narrative: Postoperatively, patient may be weight-bearing as tolerated.? Instructed to stand and walk 3 times a day.? She will have aspirin 81 mg b.i.d. for DVT prophylaxis.? Follow-up in 2 weeks in clinic for staple removal. Postoperative Procedures: Procedures Operation Date: 02/20/22 07:45 Actual Procedure Side Surgeon p perc pinning of femoral neck fx Left Salvatore Reed MD
== END 2022-02-20 11:15 | disposition home or self-care (01) ==
PROVIDERS: PCP Student in an Organized Health Care Education/Training Program; Referring Provider Orthopaedic Surgery; Visit Provider Orthopaedic Surgery
PROC: (CPT 27216; principal; 2022-02-20 07:45)
DX: S72.002A Fracture of unspecified part of neck of left femur, initial encounter for closed fracture (principal); W19.XXXA Unspecified fall, initial encounter; Z20.822 Contact with and (suspected) exposure to COVID-19; I69.311 Memory deficit following cerebral infarction; I69.320 Aphasia following cerebral infarction
CPT/HCPCS: 27216; 73502; 76000; 87635; J0171; J0690; J2405; J2704; J3010

== ENCOUNTER 2022-04-06 18:00 | Observation (INO) | payer MEDICARE, BC, SELFPAY ==
[2022-04-06 18:15] VITALS: BP 186/72; PULSE 93; RESP 20; TEMP 36.8; O2SAT 97; BMI 21.2
--- NOTE | 2022-04-06 18:22 | DI.CT.S_ITS ---
PROCEDURE: CT HEAD/BRAIN WO CON INDICATIONS: word finding trouble started yesterday TECHNIQUE: Noncontrast 4.5 mm thick angled axial sections acquired from the foramen magnum to the vertex, with coronal and sagittal reformats. For radiation dose reduction, the following was used: automated exposure control, adjustment of mA and/or kV according to patient size. COMPARISON: None. FINDINGS: Image quality: Excellent. Consistent with chronic ischemic changes. CSF spaces: Basal cisterns are patent. No extra-axial fluid collections. Ventricles are normal in size and shape. There is a right intraventricular shunt via the right parietal with the tip at the anterior right lateral ventricle, stable position. There is minor encephalomalacia along the tract in the parietal lobe. Brain: No midline shift. No intracranial masses or hemorrhage. Mahajan-white matter interface is normal. Mild to moderate scattered periventricular white matter hypodensity Skull and face: Shunt reservoir lies the right posterior parietal subcutaneous tissues. Small right parietal craniotomy. Calvarium and visualized facial bones are otherwise intact, without suspicious lesions. Sinuses: Visualized sinuses and mastoids are clear. IMPRESSION: 1. No CT evidence of acute intracranial process. 2. Ventricles symmetric in size stable compared to the prior study. There is a right CONTINUITY CLERK shunt in place. 3. Age-appropriate cerebral cortical volume loss and chronic microvascular ischemic changes. 4. Findings called to Dr. Irving at 18:57 hours. Dictated by: Britney Storey M.D. on 04/06/2022 at 18:52 Approved by: Britney Storey M.D. on 04/06/2022 at 18:57
--- NOTE | 2022-04-06 18:23 | DI.CT.S_ITS ---
PROCEDURE: CT ANGIO HEAD AND NECK INDICATIONS: word finding trouble since yesterday TECHNIQUE: After the administration of intravenous contrast, 1 mm thick sections acquired from the aortic arch through the [place]. Post-contrast 4.5 mm thick sections then re-acquired from the foramen magnum to the vertex. 3-dimensional jliqiyr-gywrpozia-xydcsxzovw (MIP) and/or volume rendering reformats were acquired of the central intracranial vasculature and neck separately. For radiation dose reduction, the following was used: automated exposure control, adjustment of mA and/or kV according to patient size. COMPARISON: None. FINDINGS: Image quality: Excellent. BRAIN: CSF spaces: Ventricles are normal in size and shape. There is a right ventricular shunt via the parietal lobe. Basal cisterns are patent. No extra-axial fluid collections. Brain: No midline shift. No intracranial bleeds or masses. Mahajan-white matter interface appears intact. No abnormal enhancement. Skull and face: Calvarium and facial bones appear intact, without suspicious lesions. Orbits appear normal. Sinuses: Sinuses and mastoids are clear. HEAD CT ANGIOGRAPHY: Anterior circulation: Intracranial internal carotid arteries are normal in size and flow. Scattered atherosclerotic calcifications present bilaterally, particularly near the right carotid terminus. The flow within the paired anterior cerebral arteries is normal and symmetric. The flow within the middle cerebral arteries is normal and symmetric. The anterior communicating artery is seen. No aneurysms are seen. Posterior circulation: Visualized portions of the vertebral arteries demonstrate normal caliber, and join to form a normal appearing basilar artery. Flow within the posterior cerebral arteries is normal and symmetric. No aneurysms are seen. NECK CT ANGIOGRAPHY: Carotid system: The great vessels demonstrate a conventional anatomy as they arise from the aortic arch. The origins of the common carotid arteries appear patent. The common carotid arteries demonstrate normal caliber and courses. The bifurcation regions are both widely patent. The internal carotid arteries demonstrate normal calibers and courses. Posterior circulation: The origins of the vertebral arteries both appear widely patent. The more superior extracranial portions of both vertebral arteries also demonstrate normal courses and calibers. They join to form a normal appearing basilar artery. Soft tissues: Visualized neck soft tissues demonstrate no suspicious abnormalities. Bones: No suspicious bony lesions. Visualized cervical spine appears normally aligned. IMPRESSION: 1. Scattered atherosclerotic calcification through the intracranial internal carotid arteries bilaterally causesmild bilateral stenosis. No focal stenosis or arterial occlusion in more distal intracranial arteries. 2. No hemodynamically significant stenosis in the carotid or vertebral system of the neck. Any quantitative measurements of stenosis were performed using NASCET criteria. Dictated by: Britney Storey M.D. on 04/06/2022 at 19:07 Approved by: Britney Storey M.D. on 04/06/2022 at 19:18
[2022-04-06 18:48] LABS: Add Manual Diff / Slide Review NO; Basophils Absolute Auto 100 /uL (0-100); Basophils Percent Auto 1.4 % (0-2); Eosinophils Absolute Auto 100 /uL (0-450); Eosinophils Percent Auto 1.2 % (2-4); Hemoglobin 13.2 g/dL (12.0-16.0); Lymphocytes Absolute Auto 1700 /uL (1100-4500); Mean Corpuscular Hemoglobin 29.2 PG (26-34); Mean Corpuscular Volume 88.3 fL (80-100); Monocytes Absolute Auto 600 /uL (0-900); Monocytes Percent Auto 7.3 % (3-14); Neutrophils Absolute Auto 6100 /uL (1500-7000); Neutrophils Percent Auto 70.1 % (50-75); Platelet Count 358 X10^3/uL (150-400); Red Blood Cell Count 4.53 X10^6/uL (4.0-5.2); Red Cell Distribution Width 13.9 % (11.6-14.8); White Blood Cell Count 8.7 X10^3/uL (4.5-11.0)
[2022-04-06 18:59] LABS: INR 1.1 (0.9-1.3); Prothrombin Time 12.6 SECONDS (10.1-12.7)
[2022-04-06 19:02] LABS: Alanine Aminotransferase 25 IU/L (<35); Albumin 4.2 g/dL (3.5-5.0); Albumin Globulin Ratio 1.4 (1.0-2.8); Alkaline Phosphatase 132 U/L (38-126); Aspartate Aminotransferase 23 IU/L (14-36); BUN Creatinine Ratio 22.7 (6-22); Bilirubin Total 0.4 mg/dL (0.2-1.3); Blood Urea Nitrogen 15 mg/dL (7-17); Calcium 10.3 mg/dL (8.4-10.2); Carbon Dioxide 28 mmol/L (22-32); Chloride 103 mmol/L (98-107); Creatine Kinase 37 U/L (30-135); Estimated Glomerular Filt Rate > 60 mL/min (>60); Ethanol (ETOH) < 10 mg/dL; Globulin 3.1 g/dL (1.7-4.1); Glucose 128 mg/dL (80-110); HEMOLYSIS < 15 (0-50); PTT Partial Thromboplastin Tim 29 SECONDS (26-36); Potassium 3.9 mmol/L (3.4-5.1); Sodium 141 mmol/L (137-145); Total Protein 7.3 g/dL (6.3-8.2)
[2022-04-06 19:03] LABS: COVID19 -Nasal RAPID Negative (Negative)
[2022-04-06 19:11] LABS: Troponin I < 0.012 ng/mL (0.01-0.034)
--- NOTE | 2022-04-06 19:17 | ED.NEUROSD ---
HPI - Neuro Symptoms/Deficit General Chief Complaint: Neuro Symptoms/Deficit Stated Complaint: Thinks stroke Time Seen by Provider: 04/06/22 18:22 Source: patient Mode of arrival: Family Vehicle History of Present Illness HPI Narrative: Patient is a 77-year-old female history of subarachnoid hemorrhage, hydrocephalus with shunt, ischemic stroke, presenting today with difficulty finding words. She presents with a neighbor who says she noticed it yesterday. Sounds like it was present yesterday but maybe got better. Unclear what time it started is today. Her last known well is unknown. She had a recent hip fracture on February 21 as she was placed on aspirin for 2 weeks postoperatively but does not take aspirin daily. She denies any chest pain or palpitations shortness of breath. No other pain. She is obviously confused but able to answer some questions and follow some commands. Daughter is now at bedside. On Anticoagulants: No Related Data Home Medications Medication Instructions Recorded Confirmed atorvastatin 40 mg tablet 40 mg PO DAILY 08/07/20 04/06/22 magnesium oxide 400 mg PO DAILY 08/07/20 04/06/22 melatonin 3 mg capsule 3 mg PO BEDTIME PRN Sleep 08/07/20 04/06/22 Previous Rx's Medication Instructions Recorded valsartan 160 mg tablet 160 mg PO DAILY #90 tabs 12/09/21 Allergies Allergy/AdvReac Type Severity Reaction Status Date / Time denosumab [From Prolia] Allergy Mild rash all Verified 04/06/22 18:24 over body Review of Systems Review of Systems Narrative: GENERAL: Denies chills, fatigue, malaise, fever, sweats, travel HEENT: Denies sinus pain, ear pain, sore throat, difficulty swallowing, neck pain RESPIRATORY: Denies dyspnea, cough, wheezing, hemoptysis, sputum. CARDIOVASCULAR: Denies chest pain, palpitations, orthopnea, edema GASTROINTESTINAL: Denies nausea, vomiting, abdominal pain, diarrhea, constipation, melena. : Denies dysuria, frequency, incontinence, hematuria, urinary retention, flank pain. MUSCULOSKELETAL: Denies weakness, joint pain, or bony pain SKIN: No rash, no erythema, no pruritus NEUROLOGIC: See HPI PSYCHIATRIC: No concerning psychosocial issues. 12 point review of systems is negative except for those stated above and HPI Hematologic/Lymphatic On Anticoagulants: No Patient History Medical History Cervical cancer (~2018) Essential hypertension Fracture of femoral neck, left, closed Hearing loss (~2020) History of endometrial cancer HLD (hyperlipidemia) Hydrocephalus (~2020) Osteoporosis (~2001) Stroke, hemorrhagic (~2020) Subarachnoid hemorrhage Uterine cancer (~2018) Surgical History Anesthesia History of hysterectomy (~04/2019) Status post ventricular shunt placement (~06/2020) Family History Father Stroke Mother No problems noted. Social History household members: none Smoking Status: Never smoker alcohol intake: current Smoking Status: Never smoker alcohol intake frequency: a few times a week Substance Use Type: does not use Exam Initial Vital Signs Initial Vital Signs: Vital Signs Temperature 98.2 F 04/06/22 18:15 Pulse Rate 93 H 04/06/22 18:15 Respiratory Rate 20 04/06/22 18:15 Blood Pressure 186/72 H 04/06/22 18:15 Pulse Oximetry 97 04/06/22 18:15 Oxygen Delivery Method 04/06/22 18:15 GENERAL: Alert 77-year-old female and in no acute distress. HEENT: Head atraumatic,EOMI, pupils reactive, face symmetric, moist mucous membranes CARDIOVASCULAR: Regular rate and rhythm without murmurs, rubs or gallops. RESPIRATORY: Breath sounds equal bilaterally, no wheezes rales or rhonchi. ABDOMEN: Soft, nontender. Normoactive bowel sounds all 4 quadrants. No guarding or rebound. EXTREMITIES: Normal range of motion, no clubbing or edema. Neurovascularly intact NEUROLOGICAL: Alert and oriented x2, person and place.Normal gait and speech. Cranial nerves II through XII grossly intact. Good [id number], good jjib-bq-[id number], strength equal bilaterally, no dysarthria or aphasia, sensation in tact to soft touch bilaterally, no visual changes, no facial droop SKIN: Warm, dry, no laceration, no petechiae, no rashes or lesions. Scores NIH Stroke Scale Level of Conciousness: Alert, keenly responsive Ask month/age: Answers neither question correctly, aphasic, stuporous, coma Open/close eyes, close hand: Performs both tasks correctly Best gaze horizontal: Normal Visual renee: No visual loss Facial palsy: Normal symetrical movement Left arm drift: No drift for full 10 sec Right arm drift: No drift for full 10 sec Left leg drift: No drift for full 5 sec Right leg drift: No drift for full 5 sec Limb ataxia: Absent Sensory on face/arms/legs: Normal, no sensory loss Best language: No aphasia, normal Dysarthria: Normal Extinction or inattention: No abnormality Total NIH Stroke scale score: 2 Course Orders Ordered: ED Orders 04/06/22 18:22 CT head/brain wo con Stat 04/06/22 18:23 CT angio head and neck Stat 04/06/22 18:24 COVID19 -Nasal RAPID/Pre-Proc Stat Complete Blood Count AUTO DIFF Stat Comprehensive Metabolic Panel Stat Ethanol (ETOH) Stat Partial Thromboplastin Time Stat Prothrombin Time INR Stat Troponin & CK Cardiac Panel Stat 04/06/22 19:05 EKG-12 Lead Stat 04/06/22 19:44 MR stroke Urgent 04/06/22 19:54 Urinalysis and Microscopic Stat Urine Drug Screen, Rapid Stat 04/06/22 21:37 Consult to Discharge Planning Routine Consult to Occupational Therapy Evaluate & Treat Consult to Physical Therapy Evaluate & Treat Consult to Speech Therapy Evaluate & Treat EC echo doppler complete Urgent 04/07/22 05:00 Basic Metabolic Panel Routine Hemoglobin A1C% w Est Avg Glu Routine NT-proBNP (BNP-Adult 18+) Routine Acetaminophen (Acetaminophen 325 Mg Tablet) 650 mg PO Q6H PRN PRN Reason: Fever/Mild Pain (1-3) Aspirin (Aspirin Ec 81 Mg Tablet) 81 mg PO DAILY [facility] Atorvastatin Calcium (Atorvastatin 20 Mg Tablet) 40 mg PO DAILY [facility] Enoxaparin Sodium (Enoxaparin 40 Mg/0.4 Ml Syringe) 40 mg SUBCUT DAILY [facility] Ondansetron HCl (Ondansetron 4 Mg/2 Ml Inj) 4 mg IV Q8HR PRN PRN Reason: Nausea And Vomiting Sodium Chloride (Sodium Chloride 0.9% Flush) 10 ml IV BID [facility] Discontinued Medications Aspirin (Aspirin 81 Mg Chew Tab) 324 mg PO NOW ONE Stop: 04/06/22 19:30 Last Admin: 04/06/22 20:40 Dose: 324 mg Documented By: JESSIE Vital Signs Vital signs: Vital Signs - 8 hr 04/06/22 18:15 Temperature 98.2 F Pulse Rate 93 H Respiratory Rate 20 Blood Pressure 186/72 H Pulse Oximetry 97 Oxygen Delivery Method Room Air MDM - Neuro Symptoms/Deficit Lab Data Result diagrams: 04/06/22 18:24 04/06/22 18:24 Labs: Lab Results 04/06/22 04/06/22 04/06/22 Range/Units 18:24 18:24 18:24 WBC 8.7 (4.5-11.0) X10^3/uL RBC 4.53 (4.0-5.2) X10^6/uL Hgb 13.2 (12.0-16.0) g/dL Hct 40.0 (36-46) % MCV 88.3 (80-100) fL MCH 29.2 (26-34) PG MCHC 33.0 (30-36) % RDW 13.9 (11.6-14.8) % Plt Count 358 (150-400) X10^3/uL Neut % (Auto) 70.1 (50-75) % Lymph % (Auto) 20.0 L (25-40) % Sabine % (Auto) 7.3 (3-14) % Eos % (Auto) 1.2 L (2-4) % Baso % (Auto) 1.4 (0-2) % Neut # (Auto) 6100 (6092-4800) /uL Lymph # (Auto) 1700 (7041-2137) /uL Sabine # (Auto) 600 (0-900) /uL Eos # (Auto) 100 (0-450) /uL Baso # (Auto) 100 (0-100) /uL PT 12.6 (10.1-12.7) SECONDS INR 1.1 (0.9-1.3) APTT 29 (26-36) SECONDS Sodium 141 (137-145) mmol/L Potassium 3.9 (3.4-5.1) mmol/L Chloride 103 (98-107) mmol/L Carbon Dioxide 28 (22-32) mmol/L BUN 15 (7-17) mg/dL Creatinine 0.66 (0.52-1.04) mg/dL Estimated GFR > 60 (>60) mL/min BUN/Creatinine Ratio 22.7 H (6-22) Glucose 128 H (80-110) mg/dL Calcium 10.3 H (8.4-10.2) mg/dL Total Bilirubin 0.4 (0.2-1.3) mg/dL AST 23 (14-36) IU/L ALT 25 (<35) IU/L Alkaline Phosphatase 132 H (38-126) U/L Total Creatine Kinase 37 (30-135) U/L CK-MB (CK-2) TNP CK-MB (CK-2) Rel Index TNP Troponin I < 0.012 (0.01-0.034) ng/mL Total Protein 7.3 (6.3-8.2) g/dL Albumin 4.2 (3.5-5.0) g/dL Globulin 3.1 (1.7-4.1) g/dL Albumin/Globulin Ratio 1.4 (1.0-2.8) Ethyl Alcohol < 10 ( - 10) mg/dL SARS-CoV-2 (PCR) (Negative) 04/06/22 Range/Units 18:24 WBC (4.5-11.0) X10^3/uL RBC (4.0-5.2) X10^6/uL Hgb (12.0-16.0) g/dL Hct (36-46) % MCV (80-100) fL MCH (26-34) PG MCHC (30-36) % RDW (11.6-14.8) % Plt Count (150-400) X10^3/uL Neut % (Auto) (50-75) % Lymph % (Auto) (25-40) % Sabine % (Auto) (3-14) % Eos % (Auto) (2-4) % Baso % (Auto) (0-2) % Neut # (Auto) (2571-7378) /uL Lymph # (Auto) (2420-7114) /uL Sabine # (Auto) (0-900) /uL Eos # (Auto) (0-450) /uL Baso # (Auto) (0-100) /uL PT (10.1-12.7) SECONDS INR (0.9-1.3) APTT (26-36) SECONDS Sodium (137-145) mmol/L Potassium (3.4-5.1) mmol/L Chloride (98-107) mmol/L Carbon Dioxide (22-32) mmol/L BUN (7-17) mg/dL Creatinine (0.52-1.04) mg/dL Estimated GFR (>60) mL/min BUN/Creatinine Ratio (6-22) Glucose (80-110) mg/dL Calcium (8.4-10.2) mg/dL Total Bilirubin (0.2-1.3) mg/dL AST (14-36) IU/L ALT (<35) IU/L Alkaline Phosphatase (38-126) U/L Total Creatine Kinase (30-135) U/L CK-MB (CK-2) CK-MB (CK-2) Rel Index Troponin I (0.01-0.034) ng/mL Total Protein (6.3-8.2) g/dL Albumin (3.5-5.0) g/dL Globulin (1.7-4.1) g/dL Albumin/Globulin Ratio (1.0-2.8) Ethyl Alcohol ( - 10) mg/dL SARS-CoV-2 (PCR) Negative (Negative) Point of Care Testing Glucose POC [address] scan - head: Radiologist's Impression: PROCEDURE:? CT HEAD/BRAIN WO CON ? INDICATIONS:? word finding trouble started yesterday ? TECHNIQUE:? Noncontrast 4.5 mm thick angled axial sections acquired from the foramen magnum to the vertex, with coronal and sagittal reformats.? For radiation dose reduction, the following was used:? automated exposure control, adjustment of mA and/or kV according to patient size.? ? COMPARISON:? None. ? FINDINGS:? Image quality:? Excellent.? Consistent with chronic ischemic changes. CSF spaces:? Basal cisterns are patent.? No extra-axial fluid collections.? Ventricles are normal in size and shape.? There is a right intraventricular shunt via the right parietal with the tip at the anterior right lateral ventricle, stable position.? There is minor encephalomalacia along the tract in the parietal lobe. ? Brain:? No midline shift.? No intracranial masses or hemorrhage.? Mahajan-white matter interface is normal.? Mild to moderate scattered periventricular white matter hypodensity ? Skull and face:? Shunt reservoir lies the right posterior parietal subcutaneous tissues.? Small right parietal craniotomy.? Calvarium and visualized facial bones are otherwise intact, without suspicious lesions.? ? Sinuses:? Visualized sinuses and mastoids are clear.? ? IMPRESSION:? ? 1. No CT evidence of acute intracranial process.? ? 2. Ventricles symmetric in size stable compared to the prior study.? There is a right [employer]IM[employer] shunt in place.? ? 3. Age-appropriate cerebral cortical volume loss and chronic microvascular ischemic changes.? ? 4. Findings called to Dr. Irving at 18:57 hours. ? ? Dictated by: Britney Storey M.D. on 04/06/2022 at 18:52 ? ? CTA - brain/neck: Radiologist's Impression: Signed Patient: Marisa Berg MR#: [id number] : 1945 Acct:[id number] Age/Sex: 77 / F Date of Service: 04/06/22 Loc: ED Accession Number: [id number] ?? Procedure: CT angio head and neck Ordering Provider: Nichole Irving D.O. PROCEDURE:? CT ANGIO HEAD AND NECK ? INDICATIONS:? word finding trouble since yesterday ? TECHNIQUE:? After the administration of intravenous contrast, 1 mm thick sections acquired from the aortic arch through the [place] of [place].? Post-contrast 4.5 mm thick sections then re-acquired from the foramen magnum to the vertex.? 3-dimensional oloesot-vzqzfckhi-hwmrsstteo (MIP) and/or volume rendering reformats were acquired of the central intracranial vasculature and neck separately. For radiation dose reduction, the following was used:? automated exposure control, adjustment of mA and/or kV according to patient size.? ? COMPARISON:? None. ? FINDINGS:? Image quality:? Excellent.? ? BRAIN:? CSF spaces:? Ventricles are normal in size and shape.? There is a right ventricular shunt via the parietal lobe.? Basal cisterns are patent.? No extra-axial fluid collections.? ? Brain:? No midline shift.? No intracranial bleeds or masses.? Mahajan-white matter interface appears intact.? No abnormal enhancement. ? Skull and face:? Calvarium and facial bones appear intact, without suspicious lesions.? Orbits appear normal.? ? Sinuses:? Sinuses and mastoids are clear.? ? HEAD CT ANGIOGRAPHY:? Anterior circulation:? Intracranial internal carotid arteries are normal in size and flow.? Scattered atherosclerotic calcifications present bilaterally, particularly near the right carotid terminus.? The flow within the paired anterior cerebral arteries is normal and symmetric.? The flow within the middle cerebral arteries is normal and symmetric.? The anterior communicating artery is seen.? No aneurysms are seen.? ? Posterior circulation:? Visualized portions of the vertebral arteries demonstrate normal caliber, and join to form a normal appearing basilar artery.? Flow within the posterior cerebral arteries is normal and symmetric.? No aneurysms are seen.? ? NECK CT ANGIOGRAPHY:? Carotid system:? The great vessels demonstrate a conventional anatomy as they arise from the aortic arch.? The origins of the common carotid arteries appear patent.? The common carotid arteries demonstrate normal caliber and courses.? The bifurcation regions are both widely patent.? The internal carotid arteries demonstrate normal calibers and courses.? ? Posterior circulation:? The origins of the vertebral arteries both appear widely patent.? The more superior extracranial portions of both vertebral arteries also demonstrate normal courses and calibers.? They join to form a normal appearing basilar artery.? ? Soft tissues:? Visualized neck soft tissues demonstrate no suspicious abnormalities.? ? Bones:? No suspicious bony lesions.? Visualized cervical spine appears normally aligned.? IMPRESSION:? ? 1. Scattered atherosclerotic calcification through the intracranial internal carotid arteries bilaterally causesmild bilateral stenosis.? No focal stenosis or arterial occlusion in more distal intracranial arteries. ? 2. No hemodynamically significant stenosis in the carotid or vertebral system of the neck. ? Any quantitative measurements of stenosis were performed using NASCET criteria.? ? ? Dictated by: Britney Storey M.D. on 04/06/2022 at 19:07 ? ECG Data Interpretation: Normal sinus rhythm rate 77 OR interval 142 QRS [address] changes no T-wave inversion MDM Narrative Medical decision making narrative: Patient's confusion and word-finding difficulty concerning for stroke. However last known well is unknown. She does have history of subarachnoid hemorrhage along with ischemic stroke. She is not taking aspirin is daily unclear why possibly due to subarachnoid hemorrhage and his shunt. Head CT and CT angio are negative the CT angio does show some atherosclerotic changes. daughter is at bedside and states that this is not her baseline. She is given aspirin here in the ED. Dr. You accepts patient Discharge Plan Departure Patient Disposition: Admitted As Inpatient Clinical Impression: Cerebrovascular accident Admit Date/Time: 04/06/22 19:49 Admit Provider: Harris You
[2022-04-06 19:59] LABS: UR Morphine/Opiate cutoff 300 Negative (Negative); Ur Creatinine Normal (Normal); Ur Specific Gravity Normal (Normal); Urine Amphetamines Negative (Negative); Urine Barbiturates Negative (Negative); Urine Benzodiazepines Negative (Negative); Urine Cocaine Negative (Negative); Urine MDMA Negative (Negative); Urine Methadone Negative (Negative); Urine Methamphetamines Negative (Negative); Urine Oxycodone Negative (Negative); Urine Phencyclidine Negative (Negative); Urine Tetrahydrocannabinol Negative (Negative); Urine Tricyclic Antidepressant Negative (Negative); Urine pH Normal (Normal)
[2022-04-06 20:40] LABS: Appearance Urine UA SL CLOUDY; Bilirubin Urine UA NEGATIVE (NEGATIVE); Color Urine UA YELLOW; Glucose Urine UA NEGATIVE (Negative); Ketones Urine UA NEGATIVE (NEGATIVE); Leukocyte Esterase Urine UA NEGATIVE (NEGATIVE); Nitrite Urine UA NEGATIVE (Negative); Occult Blood Urine UA NEGATIVE (Negative); Protein Urine UA NEGATIVE (Negative); Urobilinogen Urine UA 0.2 E.U./dL (0.2)
[2022-04-06] MEDS: ASPIRIN 81 MG CHEW TAB 324 MG PO (20:40)
[2022-04-06 20:51] LABS: Bacteria Urine None Seen; Culture Indicated Urine Cult Not Indicated; Other Crystals Urine 1+ Amorphous; RBC Urine None Seen (0-5/HPF); WBC Urine None Seen (0-5/HPF)
[2022-04-06 21:35] VITALS: BP 159/68; PULSE 67; RESP 18; TEMP 36.4; O2SAT 100
--- NOTE | 2022-04-06 21:37 | DI.ECHO.S_ITS ---
[facility]---------+ [facility] +---------+ : : [address] [place] : : : : [id number] : : : : Phone: [phone] Echocardiogram Report + + :Name: TRAY SINGLETON Study Date: 04/07/2022 Height: 59 in : :[facility] ReadingLocation: Weight: 105 lb : : Gender: Female BSA: 1.4 m2 : :: 1945 Age: 77 yrs BP: 186/72 mmHg: :Reason For Study: CVA, BUBBLE STUDY : :Ordering Physician: DORCAS, : :ZAHEER Performed By: Keli Plata : :Referring: ZAHEER TOSCANO : + + Interpretation Summary Normal left ventricle size with ejection fraction 60-65%. Mild mitral regurgitation. Mild tricuspid regurgitation. Bubble study suggests intrapulmonary shunt. Procedure: A two-dimensional transthoracic echocardiogram with color flow and Doppler was performed. The study quality was technically adequate. There is no prior echocardiogram noted for this patient. A saline contrast injection was performed to assess for cardiac shunting. The injection was performed through an intravenous line in the right arm. The patient had occasional PACs during the exam. The patient was in sinus rhythm with heart rates between 68- 80 bpm during the exam. Left Ventricle: The left ventricle is normal in size and wall thickness. The ejection fraction is estimated to be 60-65%. There are no focal wall motion abnormalities. Right Ventricle: The right ventricle is normal in size and function. Atria: There is mild biatrial enlargement. Bubble study suggests intrapulmonary shunt. Mitral Valve: The mitral valve is normal in structure and function. There is mild mitral regurgitation. Aortic Valve: The aortic valve is trileaflet. The aortic valve opens well. There is no aortic valve stenosis. There is trace aortic regurgitation. Tricuspid Valve: The tricuspid valve is normal in structure and function. There is mild tricuspid regurgitation. The right ventricular systolic pressure is estimated to be at least 28 mmHg based on an estimated right atrial pressure of 3 mm Hg. Pulmonic Valve: The pulmonic valve leaflets are thin and pliable; valve motion is normal. There is trace pulmonic regurgitation. Great Vessels: The aortic root is normal size. The dimensions of the ascending aorta are normal. The IVC is of normal diameter and collapses greater than 50% with a sniff. This suggests a low right atrial pressure of 3 mm Hg. Pericardium/ Pleura There is no pericardial effusion. There is no pleural effusion. MMode/2D Measurements & Calculations LVIDd: 4.2 cm LVOT diam: 1.8 cm LVIDs: 2.7 cm Ao root diam: 3.0 cm FS: 36.4 % asc Aorta Diam: 2.9 cm IVSd: 1.0 cm Ao Arch Diam (Prox Trans): 2.4 cm LVPWd: 1.00 cm LV finn. diameter/BSA (cm/m^2): 3.0 LV sys. diameter/BSA (cm/m^2): 1.9 LA A2 area: 19.5 cm2 RA long axis: 4.6 cm LA A4 area: 14.7 cm2 RA area: 17.3 cm2 LA length (vol): 4.6 cm RA vol: 55.0 ml LA vol: 53.0 ml RA : 39.2 ml/m2 LA vol index: 37.8 ml/m2 IVC diam: 0.58 cm RVD1 (basal): 3.1 cm RVD2 (mid): 2.6 cm TAPSE: 1.9 cm Doppler Measurements & Calculations Ao V2 max: 122.5 cm/sec LVOT Max Len: 99.6 cm/sec Ao V2 mean: 82.2 cm/sec LV V1 max P.0 mmHg Ao max P.0 mmHg LV V1 VTI: 22.5 cm Ao mean P.1 mmHg MARITZA(I,D): 2.3 cm2 Ao V2 VTI: 26.0 cm MARITZA(V,D): 2.2 cm2 sev ratio: 0.87 MARITZA indexed to BSA (cm^2/m^2): 1.6 MV E max len: 75.9 cm/sec TR max len: 250.2 cm/sec MV A max len: 92.9 cm/sec TR max P.0 mmHg MV E/A: 0.82 PA V2 max: 73.1 cm/sec Med Peak E' Len: 6.4 cm/sec PA V2 mean: 47.6 cm/sec E/E' med: 11.9 PA mean P.1 mmHg Lat Peak E' Len: 9.2 cm/sec PA pr(Accel): 37.9 mmHg E/E' lat: 8.2 E/e' average: 10.0 MV dec time: 0.23 sec SV(LVOT): 59.5 ml Electronically signed by: Magalys Varela on Reading Physician:04/07/2022 11:47 AM
[2022-04-06 21:44] VITALS: BMI 21.2
--- NOTE | 2022-04-07 00:57 | P.HP_ITS ---
History of Present Illness History of Present Illness Date Patient Seen: 04/07/22 Time Patient Seen: 01:00 Chief complaint: Thinks stroke Narrative: Ms. Berg is a 77W with PMH ICH, secondary hydrocephalus s/p WEB SITE DESIGNER shunt, HTN, ischemic CVA who presents to the hospital due to speech abnormalities. Per ED report she began having notable speech changes and difficulty yesterday, and then possibly improved somewhat today. The time of onset was not clear, but clearly was outside any TPA window. She does not take aspirin daily, but did take aspirin after recent orthpedic surgery for a hip fracture. In the ED workup was done, vitals notable for afebrile, mild tachycardia, and hypertension. NIH score was 2. CT head and CTA head neck were negative for an acute process. Labs notable for WBC 8.7, creatinine 0.66. Trop negative, EtOH negative. She was given aspirin and admitted for further treatment. Patient History Medical History Cervical cancer (~2018) Essential hypertension Fracture of femoral neck, left, closed Hearing loss (~2020) History of endometrial cancer HLD (hyperlipidemia) Hydrocephalus (~2020) Osteoporosis (~2001) Stroke, hemorrhagic (~2020) Subarachnoid hemorrhage Uterine cancer (~2018) Surgical History Anesthesia History of hysterectomy (~04/2019) Status post ventricular shunt placement (~06/2020) Family & Social History Family History Father Stroke Mother No problems noted. Social History: household members none Prior Living Arrangements House Safety & Behavioral: Feels Safe in Current Yes Environment Been Physically Hurt or No Threatened By a Person Tobacco & Substance use: Smoking Status Never smoker alcohol intake current alcohol intake frequency a few times a week Substance Use Type does not use Meds Home Medications and Allergies Home Medications Medication Instructions Recorded Confirmed Type atorvastatin 40 mg tablet 40 mg PO DAILY 08/07/20 04/06/22 History magnesium oxide 400 mg PO DAILY 08/07/20 04/06/22 History melatonin 3 mg capsule 3 mg PO BEDTIME PRN Sleep 08/07/20 04/06/22 History valsartan 160 mg tablet 160 mg PO DAILY #90 tabs 12/09/21 04/06/22 Rx Allergies Allergy/AdvReac Type Severity Reaction Status Date / Time denosumab [From Prolia] Allergy Mild rash all Verified 04/06/22 18:24 over body Review of Systems Review of Systems Narrative: 14 systems reviewed and negative aside from what is noted in HPI Exam Vital Signs (past 8 hours): - 04/06/22 21:35 04/07/22 02:46 Temperature 97.6 F 97.3 F L Pulse Rate 67 62 Respiratory Rate 18 17 Blood Pressure 159/68 H 104/57 L Pulse Oximetry 100 97 Oxygen Flow Rate 0 0 Oxygen Delivery Method Room Air Oxygen Flow Rate 0 Narrative Exam Narrative: GEN: no acute distress HEENT: moist mucous membranes, PERRL NECK: trachea midline, no JVD PULM: clear bilaterally, no wheezes, rhonchi, rales CV: regular rate and rhythm, no murmurs ABD: soft, nontender, nondistended, no organomegaly, normal bowel sounds EXT: warm and well perfused with no edema NEURO: awake, alert, to person and place, slightly halting speech, cranial nerves 2-12 intact, equal strength bilaterally, sensation intact Objective Labs Result Diagrams: 04/06/22 18:24 04/06/22 18:24 Labs: Laboratory Results - last 24 hr 04/06/22 04/06/22 04/06/22 18:24 18:24 18:24 WBC 8.7 RBC 4.53 Hgb 13.2 Hct 40.0 MCV 88.3 MCH 29.2 MCHC 33.0 RDW 13.9 Plt Count 358 Neut % (Auto) 70.1 Lymph % (Auto) 20.0 L [place] % (Auto) 7.3 Eos % (Auto) 1.2 L Baso % (Auto) 1.4 Neut # (Auto) 6100 Lymph # (Auto) 1700 [place] # (Auto) 600 Eos # (Auto) 100 Baso # (Auto) 100 PT 12.6 INR 1.1 APTT 29 Sodium 141 Potassium 3.9 Chloride 103 Carbon Dioxide 28 BUN 15 Creatinine 0.66 Estimated GFR > 60 BUN/Creatinine Ratio 22.7 H Glucose 128 H Calcium 10.3 H Total Bilirubin 0.4 AST 23 ALT 25 Alkaline Phosphatase 132 H Total Creatine Kinase 37 CK-MB (CK-2) TNP CK-MB (CK-2) Rel Index TNP Troponin I < 0.012 Total Protein 7.3 Albumin 4.2 Globulin 3.1 Albumin/Globulin Ratio 1.4 Urine Color Urine Appearance Urine pH Ur Specific [place] Urine Protein Urine Glucose (UA) Urine Ketones Urine Occult Blood Urine Nitrate Urine Bilirubin Urine Urobilinogen Ur Leukocyte Esterase Urine RBC Urine WBC Other Crystals Urine Bacteria Ur Culture Indicated? U Opiates 300ng/mL cut Ur Oxycodone Screen Urine Methadone Screen Ur Barbiturates Screen U Tricyclic Antidepress Ur Phencyclidine Scrn Ur Amphetamines Screen U Methamphetamines Scrn Ur MDMA Scrn (Ecstasy) U Benzodiazepines Scrn Urine Cocaine Screen U Marijuana (THC) Screen Ethyl Alcohol < 10 SARS-CoV-2 (PCR) 04/06/22 04/06/22 04/06/22 18:24 19:54 19:54 WBC RBC Hgb Hct MCV MCH MCHC RDW Plt Count Neut % (Auto) Lymph % (Auto) [place] % (Auto) Eos % (Auto) Baso % (Auto) Neut # (Auto) Lymph # (Auto) [place] # (Auto) Eos # (Auto) Baso # (Auto) PT INR APTT Sodium Potassium Chloride Carbon Dioxide BUN Creatinine Estimated GFR BUN/Creatinine Ratio Glucose Calcium Total Bilirubin AST ALT Alkaline Phosphatase Total Creatine Kinase CK-MB (CK-2) CK-MB (CK-2) Rel Index Troponin I Total Protein Albumin Globulin Albumin/Globulin Ratio Urine Color Yellow Urine Appearance Sl cloudy Urine pH 8.0 Ur Specific [place] 1.010 Urine Protein Negative Urine Glucose (UA) Negative Urine Ketones Negative Urine Occult Blood Negative Urine Nitrate Negative Urine Bilirubin Negative Urine Urobilinogen 0.2 Ur Leukocyte Esterase Negative Urine RBC None seen Urine WBC None seen Other Crystals 1+ amorphous Urine Bacteria None seen Ur Culture Indicated? Cult not indicated U Opiates 300ng/mL cut Negative Ur Oxycodone Screen Negative Urine Methadone Screen Negative Ur Barbiturates Screen Negative U Tricyclic Antidepress Negative Ur Phencyclidine Scrn Negative Ur Amphetamines Screen Negative U Methamphetamines Scrn Negative Ur MDMA Scrn (Ecstasy) Negative U Benzodiazepines Scrn Negative Urine Cocaine Screen Negative U Marijuana (THC) Screen Negative Ethyl Alcohol SARS-CoV-2 (PCR) Negative Assessment & Plan Assessment & Plan narrative: 1. Word finding difficulty and confusion -etiology most likely a TIA vs CVA -CT head showed no ICH, CTA head/neck showed no acute abnormality -ordered for aspirin in ED, will continue, -continue statin -NIH check q4 -ordered for MRI, will need confirmation that WEB SITE DESIGNER shunt is compatible -ordered for ECHO -check a1c, lipid panel -consult PT, OT, speech therapy 2. Hypertension -hold vaslartan for now given concern for CVA 3. History of WEB SITE DESIGNER shunt, history of subarachnoid bleeding, history of ischemic CVA -no evidence of any bleeding on CT head -patient with no fevers, or leukocytosis, doubt shunt dysfunction CODE: Full Proxy: Jackelin Holland, daughter I have utilized all available resources to reconcile the patient's home medications Time Spent With Patient Critical Care time: I spent a total of [] minutes of critical care time on this patient's care today; this time is exclusive of procedural time.
[2022-04-07 02:46] VITALS: BP 104/57; PULSE 62; RESP 17; TEMP 36.3; O2SAT 97
[2022-04-07 06:32] VITALS: BP 135/66; PULSE 65; RESP 17; TEMP 36.8; O2SAT 96
[2022-04-07 07:05] LABS: Cholesterol 106 mg/dL (140-199); HDL Cholesterol 51 mg/dL (40-60); LDL Cholesterol Calculated 44 mg/dL (<100); Triglycerides 56 mg/dL (35-150)
[2022-04-07 07:07] LABS: BUN Creatinine Ratio 14.5 (6-22); Blood Urea Nitrogen 10 mg/dL (7-17); Calcium 9.7 mg/dL (8.4-10.2); Carbon Dioxide 33 mmol/L (22-32); Chloride 105 mmol/L (98-107); Estimated Glomerular Filt Rate > 60 mL/min (>60); Glucose 91 mg/dL (80-110); HEMOLYSIS < 15 (0-50); Potassium 3.9 mmol/L (3.4-5.1); Sodium 142 mmol/L (137-145)
[2022-04-07] MEDS: ATORVASTATIN 20 MG TABLET 40 MG PO (09:09)
[2022-04-07] MEDS: ASPIRIN EC 81 MG TABLET PO (09:09)
[2022-04-07] MEDS: ENOXAPARIN 40 MG/0.4 ML SYRINGE SUBCUT (09:09)
--- NOTE | 2022-04-07 09:11 | CM.IDA ---
Initial DCP Assessment Patient is 77 y/o female who presents to due to concern stroke, patient presents to ED with difficulty finding words. Patient had hip fracture surgery on 02/21/22. Patient's PCP is Dr. Gutierrez Friedman, Patient has Medicare and BCBS out of state [facility] insurance. Patient has hx of Subarachnoid hemorrhage, hydrocephalus with shunt, and ischemic stroke. ZMT OPERATOR and DCP UNIQUE Pineda enter room to meet with patient, present is patient's daughter Jackelin. Patient presents as A/Ox3. Patient and daughter endorse that patient is independent at baseline at home. Patient resides home alone in [place]. It is reported that family resides next door and daughter lives in town as well. It is reported that patient is not currently driving at receives rides from family. Patient endorses that she has FWW and cane at home but does not have a need for them. It is reported that patient has outpatient PT at twice a week. ZMT OPERATOR and DCP discuss option for HH if it is recommended by PT/OT/ST, family and patient indicate agreement to plan if recommended. ZMT OPERATOR and DCP discuss options and it is reported that the HH agency preference is the one that can start services the soonest. Patient has orders for PT, OT and ST. MRI was originally ordered but patient will not proceed with MRI due to concern for patient's shunt. Per RN and HOSTESS CASHIER, patient's NIH score is 3, patient is currently stand by assist and shuffles at baseline after recent hip surgery. Plan: DCP to f/u with POC pending PT, OT and ST evaluation. ZMT OPERATOR to make referral for HH if recommended vs. home with outpatient PT. NADIR Gardner Discharge Planning/Care Management CM Discharge Assessment Start: 04/07/22 09:05 Freq: Status: Active Protocol: Document 04/07/22 09:05 LUCILA (Rec: 04/07/22 09:09 [email or web address] [id number]) Discharge Planning Assessment Assigned Wholesale Account Manager NADIR Chinchilla Advance Directives? Yes Advance Directives on File No History Provided By Patient,Family Member,Medical Record Has Patient been admitted in last 30 No days? Prior Living Arrangements House Household Members none Type of transporation used prior to Relies on Others admit Comment Patient is not currently driving and receives rides from family members. Independent with ADL's Yes: Independent at baseline Is patient alert and oriented? Yes DME Already Rented / Owned FWW / Walker,Cane Comment Patient endorses she has FWW and cane at home but does not use them currently. Additional Comment Discussed HH, patient and family open to referral to HH if recommended by PT/OT/ST SNF/HH Preference Discussed options, patient/ family preference is whichever agency that can start soonest . Review Status In Process Please Provide Date Initial DC 04/07/22 Assessment Was Performed
[2022-04-07 09:50] VITALS: BP 122/51; PULSE 61; RESP 16; TEMP 36.5; O2SAT 96
--- NOTE | 2022-04-07 12:06 | PT.IIE ---
Current Diagnoses Transient cerebral ischemic attack, unspecified (04/06/22) Surgical History (Last Reviewed 04/07/22 @ 02:57 by Harris You MD) Anesthesia History of hysterectomy (~04/2019) Status post ventricular shunt placement (~06/2020) Medical History (Last Reviewed 04/07/22 @ 02:57 by Harris You MD) Cervical cancer (~2018) Essential hypertension Fracture of femoral neck, left, closed Hearing loss (~2020) History of endometrial cancer HLD (hyperlipidemia) Hydrocephalus (~2020) Osteoporosis (~2001) Stroke, hemorrhagic (~2020) Subarachnoid hemorrhage Uterine cancer (~2018) Physical Therapy Inpatient Evaluation/Re-Eval M1 PT/OT-IP Prior Functional Status Start: 04/07/22 09:24 Freq: NEEDED Status: Active Protocol: Document 04/07/22 12:06 AW (Rec: 04/07/22 13:00 AW [id number]) Medical Review Prior Functional Status Medical History Reviewed Yes Communication Pt is an effective verbal communicator. She is [place]. Mobility and Gait Pt is independent at baseline. She fell and broke her left hip a month ago. She underwent percutaneous pinning. She briefly used a walker and then a cane but states she now hardly uses the cane at all. She just started outpatient PT . Activities of Daily Living and IADL's Independent. Pt does not drive . She depends on her daughter or neighbor for transportation . Prior Functional Level (Other details) PMH includes sub-arachnoid hemorrhage, hydrocephalus, PATIENT SUPPORT ASSOCIATE shunt, HTN, and ischemic CVA. She has no apparent deficits from previous CVA. Due to shunt, pt declines MRI. Social History Household Members none Living Arrangements House Number of Floors (Floors) One Floor Number of Stairs To Enter/Railing? 2 LIO without railing Home Environment Standard Height Toilet,Tub/ Shower Home Equipment Front Wheel Walker,Straight Cane Employment Status Retired Additional Social History Comment Marisa has suction grab bars in her shower. The toilet is situated between the vanity and the tub. She lives alone in [place]. Her daughter lives nearby. M2 PT-IP Current Condition Start: 04/07/22 09:24 Freq: NEEDED Status: Active Protocol: Document 04/07/22 12:06 AW (Rec: 04/07/22 13:00 AW [email or web address]) Physical Therapy Current Condition Current Condition Evaluation Date 04/07/22 Treatment Diagnosis TIA vs CVA; recent L hip fx; impaired gait Onset Date 04/05/22 M3 PT-IP Subjective Start: 04/07/22 09:24 Freq: NEEDED Status: Active Protocol: Document 04/07/22 12:06 AW (Rec: 04/07/22 13:00 AW [email or web address]) Subjective Physical Therapy Visit Type Type Initial Evaluation Visit Start Time 11:47 Visit Stop Time 12:06 Total Visit Minutes 19 Physical Therapy Visit Comments Patient Comments Pt is willing to participate with PT. She states her speech difficulty has cleared but she still feels off and confused. Therapy Pain Assessment Pain When Pain Assessed During Mobility Pain Present Pain Present Denied Pain M4 PT-IP Mobility and Gait Start: 04/07/22 09:24 Freq: NEEDED Status: Active Protocol: Document 04/07/22 12:06 AW (Rec: 04/07/22 13:00 AW [email or web address]) PT-Bed Mobility Assessment Supine to Sit Supine to Sit Independent PT-Transfer Assessment Sit to and From Stand Sit to and from Stand Standby Assistance Equipment Transfer Assistive Device None,Gait Belt Orthotic/Prosthetic Devices or Brace: No Transfers Transfer Destination Chair Transfer Technique pt ambulated without AD Transfer Ability Level of Assist Standby Assistance Comments Mobility Comments Pt was lying in bed as PT arrived. BP 134/58 HR 80. She sat up EOB and stood SBA. She stated she usually has a warm up phase of walking. Initial steps were halting and choppy but gait did become more smooth with distance. She ambulated 250 feet without AD. She tended to land on flat feet but had no overt LOB. On return to the room, she transferred to the chair where she was left with call light and tray table in reach. Gait Assessment Gait Gait Assistance Required: Standby Assistance Distance (Feet) 250 Assistive Devices Assistive Device None,Gait Belt Gait Deviations General Gait Pattern Antalgic,Decreased Stride Length,Decreased Feet Clearance Factors Limiting Gait Function Factors Limiting Gait Function Decreased Strength,Pain,Poor Balance Comments Gait Comments See mobility comments. Stair Climbing Assessment Evaluation Level of Assist On Stairs Standby Assistance Devices Stair Climbing Assistive Devices Left Railing Technique/Endurance Stair Climbing Direction Ascend and Descend Stair Climbing Technique Step Over Step Number of Steps Climbed 3 Query Text: Stair Climbing Set # Repetitions (reps) 2 Comments Stair Climbing Comments Pt states she would use her cane for stairs at home. PT-Balance Assessment Sitting Balance and Reactions Static Sitting Balance Ability Good Dynamic Sitting Balance Ability Good Standing Balance and Reactions Static Standing Balance Ability Good Dynamic Standing Balance Ability Fair Device Used none M5 PT-IP Objective Assessments Start: 04/07/22 09:24 Freq: NEEDED Status: Active Protocol: Document 04/07/22 12:06 AW (Rec: 04/07/22 13:00 AW [email or web address]) Orientation Orientation/Cognition Level of Alertness Alert Orientation Name,Month,Year,Place, Situation Language Function Ability No Deficits Noted,Hard of Hearing Comments Concern for increased confusion. Pt is intermittently aware of her confusional state. She has difficulty maintaining throughline in conversation and is highly distractible. Gross Range of Motion Lower Extremity ROM Assessment Within Functional Limits Strength Lower Extremity Strength Assessment Bilaterally Impaired Hip R 4+/5; L 4-/5 Ankle B 4-/5 Coordination Assessment Gross Coordination Gross Coordination WNL Assessment Finger to Nose Test Normal Performance Pronation/Supination Test Normal Performance Foot Tapping Test Normal Performance Sensation Assessment Sensation Gross Sensation WNL Muscle Tone Muscle Tone WNL Yes Other Assessments Other Other Assessments Ocular motor and vestibular screening are WNL. M6 PT-IP Treatment Start: 04/07/22 09:24 Freq: NEEDED Status: Active Protocol: Document 04/07/22 12:06 AW (Rec: 04/07/22 13:00 AW [email or web address]) Physical Therapy Treatment Education Education Provided Safety Other Treatments Other Treatment Performed Discussed home safety awareness in the setting of increased confusion and distractibility M7 PT-IP Assessment and Plan Start: 04/07/22 09:24 Freq: NEEDED Status: Active Protocol: Document 04/07/22 12:06 AW (Rec: 04/07/22 13:00 AW [email or web address]) PT Summary Assessment and Plan Potential Rehabilitation Potential Good Status of Condition at Evaluation Evolving Summary Impairments Pain,Strength,Balance, Cognition,Gait Assessment Summary Marisa is a 77 yo woman admitted with concern for TIA vs CVA. She reported difficulty with word-finding and increased confusion. Today , speech is clear and pt does not struggle to find words but she is highly distractible and struggles to stay on topic . Of note, she broke her left hip a month ago and underwent percutaneous pinning. She briefly used a FWW and SPC but now rarely uses an assistive device. On assessment, her gait is likely near her most recent baseline post-fracture but she does present with decreased strength and balance which increase her risk of falls. Most concerning is her confusion and decreased safety awareness which could affect her mobility. PT recommends increased assist at home until pt clears. Defer to speech therapy for recommendations but pt would likely benefit from outpatient with FILLER MACHINE OPERATOR. Pt is appropriate to continue outpatient PT for her hip fracture. Goals Transfer Goal Independent Gait Goal Independent Gait Distance 300 Other Goals - up/down 2 steps no rail with SPC MOD I Days to Meet Goals 5 Frequency of Treatment Frequency Of Treatment Once a Day Treatment Plan Physical Therapy Treatment Plan Bed Mobility Training,Transfer Training,Gait Training, Therapeutic Exercise,Balance Retraining,Post Op Education, Discharge Planning,Hot or Cold Pack,Neuromuscular Re-ed Other Recommendations and Next Treatment consider SPC for gait. assess Focus gait with cognitive task/dual task Precautions Other Precautions falls Weight Bearing Status Weight Bearing Status Weight Bear as Tolerated Recommendations To Nursing Amount of Assist Needed Standby Assistance Discharge Recommendations PT Discharge Recommendations Home with Assistance, Outpatient PT Other Discharge Recommendations speech therapy Transportation Needs at Discharge Private Vehicle
--- NOTE | 2022-04-07 12:33 | OT.IP.EVAL ---
Current Diagnoses Transient cerebral ischemic attack, unspecified (04/06/22) Past Medical History (Last Reviewed 04/07/22 @ 02:57 by Harris You MD) Cervical cancer (~2018) Essential hypertension Fracture of femoral neck, left, closed Hearing loss (~2020) History of endometrial cancer HLD (hyperlipidemia) Hydrocephalus (~2020) Osteoporosis (~2001) Stroke, hemorrhagic (~2020) Subarachnoid hemorrhage Uterine cancer (~2018) Surgical History (Last Reviewed 04/07/22 @ 02:57 by Harris You MD) Anesthesia History of hysterectomy (~04/2019) Status post ventricular shunt placement (~06/2020) Occupational Therapy Inpatient Evaluation/Re-Eval M1 PT/OT-IP Prior Functional Status Start: 04/07/22 09:24 Freq: NEEDED Status: Active Protocol: Document 04/07/22 13:02 CGR (Rec: 04/07/22 13:37 CGR [id number]) Medical Review Prior Functional Status Medical History Reviewed Yes Communication Pt is an effective verbal communicator. She is KLAMATH. Pt states that she got a hearing aide in the past and she hated it so does not use it. Mobility and Gait Pt is independent at baseline. She fell and broke her left hip a month ago. She underwent percutaneous pinning. She briefly used a walker and then a cane but states she now hardly uses the cane at all. She just started outpatient PT . Activities of Daily Living and IADL's Independent. Pt does not drive for the last month. She states that her car has been in the shop and her plan was to drive again once the car was fixed but states that is on hold d/t new admit. She depends on her daughter or neighbor for transportation. Prior Functional Level (Other details) PMH includes sub-arachnoid hemorrhage, hydrocephalus, CELL TENDER shunt, HTN, and ischemic CVA. She has minimal cog deficits from previous CVA. Due to shunt, pt declines MRI. Social History Household Members none Living Arrangements House Number of Floors (Floors) One Floor Number of Stairs To Enter/Railing? 2 LIO without railing Home Environment Standard Height Toilet,Tub/ Shower Home Equipment Front Wheel Walker,Straight Cane Employment Status Retired Additional Social History Comment Marisa has suction grab bars in her shower. The toilet is situated between the vanity and the tub. She lives alone in [place]. Her daughter lives nearby. M2 OT-IP Current Condition Start: 04/07/22 13:01 Freq: Status: Active Protocol: Document 04/07/22 13:02 CGR (Rec: 04/07/22 13:37 CGR [id number]) Occupational Therapy Current Condition Current Condition Evaluation Date 04/07/22 Treatment Diagnosis confusion and speech abnormalities Diagnosis Onset Date 04/06/22 M3 OT- IP Subjective and Pain Start: 04/07/22 13:01 Freq: Status: Active Protocol: Document 04/07/22 13:02 CGR (Rec: 04/07/22 13:37 CGR [id number]) OT- Subjective Occupational Therapy Visit Type Type Initial Evaluation Visit Start Time 12:12 Visit Stop Time 12:33 Total Visit Minutes 21 Notes Pt is agreeable to OT services . OT Pain Assessment Pain When Pain Assessed At Rest Pain Present Pain Present Denied Pain M4 OT- IP ADL's Start: 04/07/22 13:01 Freq: Status: Active Protocol: Document 04/07/22 13:02 CGR (Rec: 04/07/22 13:37 CGR [id number]) OT [id number] Comments OT Self-Feeding Comments Not meal time OT ADL-Grooming General Evaluation Grooming Ability Independent Areas Needing Assistance Face Washing Comments OT Grooming Comments standing at sink OT ADL-Oral Care General Eval Oral Care Ability Independent Areas of Assistance Brushing Teeth Comments Oral Care Comments standing at sink OT ADL-Dressing General Eval Lower Body Dressing Ability Independent Areas Needing Assistance Socks Comments OT Dressing Comments seated in chair without difficulty OT ADL-Toileting General Evaluation Toileting Ability Independent Comments OT Toileting Comments Pt urinated seated on toielt OT ADL-Bathing Comments OT Bathing Comments not performed M5 OT- IP IADL's Start: 04/07/22 13:01 Freq: Status: Active Protocol: Document 04/07/22 13:02 CGR (Rec: 04/07/22 13:37 CGR [id number]) OT-Instrumental Activities of Daily Living Deficits IADL Deficits Identified Deficits Home Safety Awareness Awareness of Need for Assistance at Home Decreased Awareness Ability to Problem Solve Emergency Unable to Problem Solve Situations Medication Management Medication Management Comments Concerns regarding pt's ability to manage safely Money Management Money Management Comments Concerns regarding pt's ability to manage safely Meal Preparation Meal Preparation Comments Concerns regarding pt's ability to manage safely Broom Handle Dipper Broom Handle Dipper Comments Concerns regarding pt's ability to manage safely Driving Driving Comments Concerns regarding pt's ability to manage safely M6 OT- IP Functional Cognition Start: 04/07/22 13:01 Freq: Status: Active Protocol: Document 04/07/22 13:02 CGR (Rec: 04/07/22 13:37 R [id number]) Cognitive Factors Limiting Selfcare Function Cognitive Ability Level of Alertness Alert,Confusional State Patient Orientation Name,Age,Birthday,Month,Date, Year,Day of Week,Place, Situation Attention Span Ability Capable of Focused Attention, Capable of Sustained Attention Ability to Follow Commands Able to Follow One Step Commands with Increased Time, Able to Follow One Step Commands with Repetition Safety Awareness Underestimates Need for Assistance Problem Solving Ability Unable to Identify Errors, Needs Assist to Identify Solutions Cognitive Comments Cognitive Assessment Comments Pt performed the SLUMS with ST on this date scoring a . It is likely that pt had some cognitive deficits at baseline but currently pt displays an inability to effectively participate in a conversation d/t topic matience. Pt needs extra cues for sequencing new activities. Others have stated that pt relizes that she is having some cognitive deficit but pt did not identify a deficit with this travel writer and instead was insistant that she was fine. OT- Vision and Hearing OT- Hearing Assessment OT- Hearing Assessment Hearing Impaired OT- Vision Assessment Visual Acuity Glasses For Reading,Contact Lenses Visual Attentiveness WFL Occular Pursuits WFL Visual Convergence WFL M7 OT- IP Mobility and Balance Start: 04/07/22 13:01 Freq: Status: Active Protocol: Document 04/07/22 13:02 CGR (Rec: 04/07/22 13:37 R [id number]) OT-Transfer Assessment Sit to and From Stand Sit to and from Stand Independent Transfers Transfer Ability Independent Technique Transfer Destination Chair,Toilet Transfer Technique Stand Step Pivot Devices Transfer Assistive Devices None Comments Mobility Comments Pt is able to move around the room without difficulty. She states that when she first starts moving she has a slight amount of pain that is better with movement. OT- Gait Assessment Gait Gait Assistance Required: Independent OT- Balance Assessment Sitting Balance and Reactions Static Sitting Balance Ability Normal Dynamic Sitting Balance Ability Good M8 OT- IP Objective Assessments Start: 04/07/22 13:01 Freq: Status: Active Protocol: Document 04/07/22 13:02 CGR (Rec: 04/07/22 13:37 CGR [id number]) OT Gross Range of Motion Upper Extremity Range of Motion Assessment Within Functional Limits OT Strength Upper Extremity Strength Assessment Within Functional Limits Comments Strength Comments Pt is grossly 4+ to 5/5 OT- Coordination Assessment Upper Extremity Finger to Nose Test Within Functional Limits Finger Tapping Test Within Functional Limits OT-Muscle Tone Assessment Muscle Tone WNL Yes OT Sensation Assessment Edema Edema Absent M9 OT- IP Assessment and Plan Start: 04/07/22 13:01 Freq: Status: Active Protocol: Document 04/07/22 13:02 CGR (Rec: 04/07/22 13:37 CGR [id number]) OT Summary Assessment and Plan Potential Rehabilitation Potential Good Analytic Complexity at Evaluation Low Summary OT Impairments Functional Cognition Progress Towards Goals Progressing Toward Goals Assessment Summary Pt presents as a low complexity evaluation s/p admit for speech abnormalities and confusion. Pt is mobilizing without difficulty and performing ADLs, however, pt displays significant deficit to cognition at this time. Pt is unable to maintain topic maintenance or participate consistency in a linear conversation. Pt will benefit from out patient cognitive therapy, likely with a ST. Recommend d/c home with family support ideally staying in the home with the pt. As ST is continuing to work with pt for cognition, OT will d/c orders to prevent duplication of services. Frequency of Treatment Frequency Of Treatment Discharge Discharge Recommendations OT Discharge Recommendations Home with Assistance Transportation Needs at Discharge Private Vehicle
--- NOTE | 2022-04-07 12:45 | ST.IPIE ---
Visit Care Team Role Provider Type Gutierrez Friedman MD Family Provider Physician Primary Care Provider Specialty: Internal Medicine Address: [address] [place] [address], [address], [place], [address] Email: [email or web address] Nichole Irving DO Emergency Provider Physician Referring Provider Specialty: Emergency Medicine Address: [address] [place] [address], [id number] Email: [email or web address] Harris You MD Admit Provider Physician Attending Provider Specialty: Hospitalist Address: [address] [place] [address], [id number] Fax: Email: [email or web address] Current Diagnoses Transient cerebral ischemic attack, unspecified (04/06/22) Past Medical History (Last Reviewed 04/07/22 @ 02:57 by Harris You MD) Cervical cancer (Medical ~2018) Essential hypertension (Medical) Fracture of femoral neck, left, closed (Medical) Hearing loss (Medical ~2020) History of endometrial cancer (Medical) HLD (hyperlipidemia) (Medical) Hydrocephalus (Medical ~2020) Osteoporosis (Medical ~2001) Stroke, hemorrhagic (Medical ~2020) Subarachnoid hemorrhage (Medical) Uterine cancer (Medical ~2018) Endometrial ST IP Initial Evaluation Report FEDERAL JUDICIAL LAW CLERK Adult Cognitive Linguistic Eval Start: 04/07/22 12:21 Freq: Status: Active Protocol: Document 04/07/22 12:22 JANIS (Rec: 04/07/22 12:45 JANIS [id number]) Adult Cognitive Linguistic Evaluation Session Time Visit Start Time 11:30 Visit Stop Time 12:00 Total Visit Minutes 30 Visit Information Visit Number 1 Setting Assessment Location Acute Care Visit Type Note Type Initial evaluation Next Note Type Next Note Type Treatment Note Patient Information Identification Type Name,Wristband Patient History Per H&P: Ms. Berg is a 77W with PMH ICH, secondary hydrocephalus s/p JAVA TECH LEAD shunt, HTN, ischemic CVA who presents to the hospital due to speech abnormalities. Per ED report she began having notable speech changes and difficulty yesterday, and then possibly improved somewhat today. The time of onset was not clear, but clearly was outside any TPA window. She does not take aspirin daily, but did take aspirin after recent orthpedic surgery for a hip fracture. In the ED workup was done, vitals notable for afebrile, mild tachycardia, and hypertension. NIH score was 2. CT head and CTA head neck were negative for an acute process. Labs notable for WBC 8.7, creatinine 0.66. Trop negative, EtOH negative. She was given aspirin and admitted for further treatment. Language(s) Spoken in the Home Faroese Education Level [employer] Hearing Hearing Level Normal Subjective Patient Report Pt was reclined in bed when FEDERAL JUDICIAL LAW CLERK arrived. She repositioned herself to upright position. Pt reported no difficulty with word finding at this point and stated she does not feel confused. She agreed to participate in all assessment activities. Mental Status Alert,Responsive,Cooperative Assessment Results Pt presented with symmetrical features at rest and in motion . Noted minimal movement in upper lip, though this did not impact speech intelligibility and pt did not report concern regarding speech. Structure and function of oral mechanism appears WFL for the purposes of speech and swallowing. Formal Assessment Standardized Test/Screener Type [facility] Mental Status ([facility]UST) Administration Complete Results Results of the SLUMS place Marisa's score at 13/30, indicating severe cognitive impairment. Significant difficulty with mental math, as Marisa required 4-5 repetitions of question to complete simple addition and an additional 3 repetitions of question to complete subtraction. Both addition and subtraction answers were incorrect. She repeated dog and cow twice during generative naming task and only recalled 2/5 items. Clock drawing was minimal, with hands directionally accurate, though both lines were of equal length. Minimal awareness of deficits observed , with pt answering questions confidently even if they were incorrect. Pt presents as significantly less confused than results of UMS indicate , which may result in caretakers over-estimating Marisa's cognitive ability. Based on results of SLUMS, Marisa is likely to experience difficulty in managing medication dosage/timing, recall of verbal instructions, and other care-related tasks. Recommend speech therapy to provide internal and external strategies to increase executive functioning/ information processing skills for increased independence in ADLs, including management of medical care. Findings/Results Cognitive Function Severely impaired Cognitive Communication Deficits Self-awareness of Cognitive- Limited awareness (minimal Communication Deficits appreciation without specificity) Impact on Functioning Safety Risks Mod: Reacting to Emergency Traveling Alone in Community Sev: Being Left Alone at Home Managing Medication Prognosis Based on Cognitive status,Duration of symptoms/severity,Time since onset Plan of Care Speech-Language Treatment Yes Patient/Caregiver Education Described results of evaluation,Patient expressed understanding of evaluation, Patient expressed agreement with goals and treatment plans ,Patient requires further education/training,Family/ caregivers require further education/training Short Term Goals 1. Pt will demonstrate independent use of external strategies (e.g., written directions, alarms, etc.) to manage medical care (e.g., medication dosage/timing, recall of verbal directions, etc.). 2. Pt will demonstrate independent use of internal strategies (e.g., visualization, etc.) to manage medical care (e.g., recall of verbal directions, etc.). Long-Term Goals Pt will independently use internal and external strategies to manage medical care and ADLs. Discharge Recommendations Inpatient rehab facility,Home with Home Health,Outpatient therapy
--- NOTE | 2022-04-07 12:54 | CM.DPC ---
DCP Note continued Patient was seen by OT and DYER ASSISTANT, both report concerns for patient's confusion. OT recommends patient engage in outpatient DYER ASSISTANT since she is already set up with outpatient PT. Patient scored 13/30 on SLUMs. Plan: Awaiting pending PT evaluation. Renée Jean-Baptiste, INSPECTOR LINE
--- NOTE | 2022-04-07 13:24 | P.DS_ITS ---
History of Present Illness History of Present Illness Date Patient Seen: 04/07/22 Time Patient Seen: 13:24 Chief complaint: Thinks stroke Narrative: Per Dr. You, Ms. Berg is a 77W with PMH ICH, secondary hydrocephalus s/p FINISH PRODUCTION MANAGER shunt, HTN, ischemic CVA who presents to the hospital due to speech abnormalities. Per ED report she began having notable speech changes and difficulty yesterday, and then possibly improved somewhat today. The time of onset was not clear, but clearly was outside any TPA window. She does not take aspirin daily, but did take aspirin after recent orthpedic surgery for a hip fracture. In the ED workup was done, vitals notable for afebrile, mild tachycardia, and hypertension. NIH score was 2. CT head and CTA head neck were negative for an acute process. Labs notable for WBC 8.7, creatinine 0.66. Trop negative, EtOH negative. She was given aspirin and admitted for further treatment. Discharge Providers Provider Date of admission: 04/06/22 19:49 Discharge Date: 04/07/22 Primary care physician: Gutierrez Friedman MD Consults: 04/06/22 21:37 Consult to Discharge Planning Routine Comment: Consult to Occupational Therapy Evaluate & Treat Comment: Physician Instructions: Evaluate and treat Consult to Physical Therapy Evaluate & Treat Comment: Physician Instructions: Evaluate and Treat Consult to Speech Therapy Evaluate & Treat Comment: Physician Instructions: Evaluate and treat Discharge provider: Jose Daniel Fernandes DO Summary Hospital Course Discharge Diagnosis: 1. TIA 2. Hypertension 3. History of FINISH PRODUCTION MANAGER shunt, history of subarachnoid bleeding, history of ischemic CVA Hospital Course: Ms. Berg is a 77W with PMH ICH, secondary hydrocephalus s/p FINISH PRODUCTION MANAGER shunt, HTN, ischemic CVA admitted with some word finding difficulties. Imaging was unremar kable, and though MRI could possibly be confirmed, the ability to check her shunt settings before and after her scan is not available at this facility so MRI was not performed as it would not likely environmental change analyst at this time given her prior CVA. She was recommended to start aspirin and continue home high intensity statin therapy. BP was controlled with her home medications. No evidence of infectious or metabolic cause was found. Her symptoms resolved quickly and did not recur. She did well with therapies and was discharged home. Exam Vital Signs (past 8 hours): - 04/07/22 06:32 04/07/22 09:50 Temperature 98.2 F 97.7 F Pulse Rate 65 61 Respiratory Rate 17 16 Blood Pressure 135/66 122/51 L Pulse Oximetry 96 96 Oxygen Flow Rate 0 0 Oxygen Delivery Method Room Air Oxygen Flow Rate 0 Narrative Exam Narrative: GEN: no acute distress HEENT: moist mucous membranes, PERRL NECK: trachea midline, no JVD PULM: clear bilaterally, no wheezes, rhonchi, rales CV: regular rate and rhythm, no murmurs ABD: soft, nontender, nondistended, no organomegaly, normal bowel sounds EXT: warm and well perfused with no edema NEURO: awake, alert, to person and place, cranial nerves 2-12 intact, equal strength bilaterally, sensation intact Objective Labs Result Diagrams: 04/06/22 18:24 04/07/22 06:35 Labs: Laboratory Results - last 24 hr 04/06/22 04/06/22 04/06/22 18:24 18:24 18:24 WBC 8.7 RBC 4.53 Hgb 13.2 Hct 40.0 MCV 88.3 MCH 29.2 MCHC 33.0 RDW 13.9 Plt Count 358 Neut % (Auto) 70.1 Lymph % (Auto) 20.0 L [place] % (Auto) 7.3 Eos % (Auto) 1.2 L Baso % (Auto) 1.4 Neut # (Auto) 6100 Lymph # (Auto) 1700 [place] # (Auto) 600 Eos # (Auto) 100 Baso # (Auto) 100 PT 12.6 INR 1.1 APTT 29 Sodium 141 Potassium 3.9 Chloride 103 Carbon Dioxide 28 BUN 15 Creatinine 0.66 Estimated GFR > 60 BUN/Creatinine Ratio 22.7 H Glucose 128 H Hemoglobin A1c Calcium 10.3 H Total Bilirubin 0.4 AST 23 ALT 25 Alkaline Phosphatase 132 H Total Creatine Kinase 37 CK-MB (CK-2) TNP CK-MB (CK-2) Rel Index TNP Troponin I < 0.012 Total Protein 7.3 Albumin 4.2 Globulin 3.1 Albumin/Globulin Ratio 1.4 Triglycerides Cholesterol LDL Cholesterol, Calc HDL Cholesterol Urine Color Urine Appearance Urine pH Ur Specific [place] Urine Protein Urine Glucose (UA) Urine Ketones Urine Occult Blood Urine Nitrate Urine Bilirubin Urine Urobilinogen Ur Leukocyte Esterase Urine RBC Urine WBC Other Crystals Urine Bacteria Ur Culture Indicated? U Opiates 300ng/mL cut Ur Oxycodone Screen Urine Methadone Screen Ur Barbiturates Screen U Tricyclic Antidepress Ur Phencyclidine Scrn Ur Amphetamines Screen U Methamphetamines Scrn Ur MDMA Scrn (Ecstasy) U Benzodiazepines Scrn Urine Cocaine Screen U Marijuana (THC) Screen Ethyl Alcohol < 10 SARS-CoV-2 (PCR) 04/06/22 04/06/22 04/06/22 18:24 19:54 19:54 WBC RBC Hgb Hct MCV MCH MCHC RDW Plt Count Neut % (Auto) Lymph % (Auto) [place] % (Auto) Eos % (Auto) Baso % (Auto) Neut # (Auto) Lymph # (Auto) [place] # (Auto) Eos # (Auto) Baso # (Auto) PT INR APTT Sodium Potassium Chloride Carbon Dioxide BUN Creatinine Estimated GFR BUN/Creatinine Ratio Glucose Hemoglobin A1c Calcium Total Bilirubin AST ALT Alkaline Phosphatase Total Creatine Kinase CK-MB (CK-2) CK-MB (CK-2) Rel Index Troponin I Total Protein Albumin Globulin Albumin/Globulin Ratio Triglycerides Cholesterol LDL Cholesterol, Calc HDL Cholesterol Urine Color Yellow Urine Appearance Sl cloudy Urine pH 8.0 Ur Specific [place] 1.010 Urine Protein Negative Urine Glucose (UA) Negative Urine Ketones Negative Urine Occult Blood Negative Urine Nitrate Negative Urine Bilirubin Negative Urine Urobilinogen 0.2 Ur Leukocyte Esterase Negative Urine RBC None seen Urine WBC None seen Other Crystals 1+ amorphous Urine Bacteria None seen Ur Culture Indicated? Cult not indicated U Opiates 300ng/mL cut Negative Ur Oxycodone Screen Negative Urine Methadone Screen Negative Ur Barbiturates Screen Negative U Tricyclic Antidepress Negative Ur Phencyclidine Scrn Negative Ur Amphetamines Screen Negative U Methamphetamines Scrn Negative Ur MDMA Scrn (Ecstasy) Negative U Benzodiazepines Scrn Negative Urine Cocaine Screen Negative U Marijuana (THC) Screen Negative Ethyl Alcohol SARS-CoV-2 (PCR) Negative 04/07/22 04/07/22 04/07/22 06:35 06:35 06:35 WBC RBC Hgb Hct MCV MCH MCHC RDW Plt Count Neut % (Auto) Lymph % (Auto) [place] % (Auto) Eos % (Auto) Baso % (Auto) Neut # (Auto) Lymph # (Auto) [place] # (Auto) Eos # (Auto) Baso # (Auto) PT INR APTT Sodium 142 Potassium 3.9 Chloride 105 Carbon Dioxide 33 H BUN 10 Creatinine 0.69 Estimated GFR > 60 BUN/Creatinine Ratio 14.5 Glucose 91 Hemoglobin A1c 6.0 Calcium 9.7 Total Bilirubin AST ALT Alkaline Phosphatase Total Creatine Kinase CK-MB (CK-2) CK-MB (CK-2) Rel Index Troponin I Total Protein Albumin Globulin Albumin/Globulin Ratio Triglycerides 56 Cholesterol 106 L LDL Cholesterol, Calc 44 HDL Cholesterol 51 Urine Color Urine Appearance Urine pH Ur Specific [place] Urine Protein Urine Glucose (UA) Urine Ketones Urine Occult Blood Urine Nitrate Urine Bilirubin Urine Urobilinogen Ur Leukocyte Esterase Urine RBC Urine WBC Other Crystals Urine Bacteria Ur Culture Indicated? U Opiates 300ng/mL cut Ur Oxycodone Screen Urine Methadone Screen Ur Barbiturates Screen U Tricyclic Antidepress Ur Phencyclidine Scrn Ur Amphetamines Screen U Methamphetamines Scrn Ur MDMA Scrn (Ecstasy) U Benzodiazepines Scrn Urine Cocaine Screen U Marijuana (THC) Screen Ethyl Alcohol SARS-CoV-2 (PCR) [facility] Medical History Cervical cancer (~2018) Essential hypertension Fracture of femoral neck, left, closed Hearing loss (~2020) History of endometrial cancer HLD (hyperlipidemia) Hydrocephalus (~2020) Osteoporosis (~2001) Stroke, hemorrhagic (~2020) Subarachnoid hemorrhage Uterine cancer (~2018) Surgical History Anesthesia History of hysterectomy (~04/2019) Status post ventricular shunt placement (~06/2020) Family History Father Stroke Mother No problems noted. Social History household members: none Smoking Status: Never smoker alcohol intake: current Discharge Plan Discharge Plan Patient Disposition: Home Provider Discharge Comment: You were admitted to the hospital with concern for possible TIA or stroke. You improved over time and MRI not performed given prior FINISH PRODUCTION MANAGER shunt and inability to confirm settings. Please follow up with your neurology team as previously scheduled. I recommend continuing your statin therapy and resuming baby aspirin daily for stroke prevention. Discharge orders & Medications Prescriptions: New aspirin 81 mg Tablet,Delayed Release (Dr/Ec) 81 mg PO DAILY 30 Days Qty: 30 0RF Continued valsartan 160 mg tablet 160 mg PO DAILY Qty: 90 3RF atorvastatin 40 mg tablet 40 mg PO DAILY magnesium oxide 400 mg magnesium capsule 400 mg PO DAILY melatonin 3 mg capsule 3 mg PO BEDTIME PRN (Reason: Sleep) Follow up/Referrals: Gutierrez Friedman MD [Primary Care Provider] - Diet/Activity/Treatments Diet: Diet as Tolerated Activity: As tolerated Discharge Data Primary Care Provider: Gutierrez Friedman Attending Provider: Harris You
[2022-04-07 14:00] VITALS: BP 144/58; PULSE 80; RESP 16; TEMP 36.6; O2SAT 99
== END 2022-04-07 15:15 | disposition home or self-care (01) ==
LOC: ED 19:37 → AC 21:22
PROVIDERS: Admitting Provider Internal Medicine; Emergency Provider Emergency Medicine; Family Provider Student in an Organized Health Care Education/Training Program; PCP Student in an Organized Health Care Education/Training Program; Referring Provider Emergency Medicine; Visit Provider Internal Medicine
DX: G45.9 Transient cerebral ischemic attack, unspecified (principal); R47.01 Aphasia; R41.0 Disorientation, unspecified; I10 Essential (primary) hypertension; Z86.73 Personal history of transient ischemic attack (TIA), and cerebral infarction without residual deficits; R29.702 NIHSS score 2; Z20.822 Contact with and (suspected) exposure to COVID-19
CPT/HCPCS: 36415; 70450; 70496; 70498; 80048; 80053; 80061; 80305; 80320; 81001; 81003; 82550; 82962; 83036; 84484; 85025; 85610; 85730; 87635; 93005; 93306; 96125; 96372; 97129; 97162; 97165; 99285; C9803; G0378; J1650; Q9967

== ENCOUNTER 2022-05-16 09:45 | Outpatient (RCR) | payer MEDICARE, BC, SELFPAY ==
--- NOTE | 2022-03-21 21:31 | PT.OIE ---
Current Diagnoses Fracture of unspecified part of neck of left femur, initial encounter for closed fracture (03/21/22) Past Medical History (Last Updated 03/15/22 @ 16:16 by Gutierrez Friedman MD) Cervical cancer (~2018) Essential hypertension Fracture of femoral neck, left, closed Hearing loss (~2020) History of endometrial cancer HLD (hyperlipidemia) Hydrocephalus (~2020) Osteoporosis (~2001) Stroke, hemorrhagic (~2020) Subarachnoid hemorrhage Uterine cancer (~2018) Past Surgical History (Last Reviewed 02/20/22 @ 07:41 by Salvatore Reed MD) Anesthesia History of hysterectomy (~04/2019) Status post ventricular shunt placement (~06/2020) Visit Care Team Role Provider Type Gutierrez Friedman MD Attending Provider Physician Family Provider Primary Care Provider Referring Provider Specialty: Internal Medicine Address: [address] [place] [address], [address], [facility] Email: [email or web address] Physical Therapy Initial Evaluation PT-OP-A Visit Information Start: 03/19/22 16:03 Freq: Status: Active Protocol: Document 03/21/22 08:52 AMB (Rec: 03/21/22 10:31 AMB [id number]) Out-Patient Physical Therapy Visit Information Visit Information Visit Type Initial Evaluation Visit Start Time 09:45 Visit Stop Time 10:30 Total Visit Minutes 45 Visit Number 1 PT-OP-B Current Condition Start: 03/19/22 16:03 Freq: Status: Active Protocol: Document 03/21/22 08:52 AMB (Rec: 03/21/22 10:31 AMB [id number]) Current Condition History of Current Condition Onset Date 02/18 Current Complaints L Femur fracture History of Current Condition L ORIF, no pain with sitting, but does feel it with walking, currently using FWW. Lives in a one story home, 2 steps to enter does get help currently but no railings. Lives alone, daughter lives in [place]. Not currently driving. Did have a stroke almost 2 years ago. Not sure where. Was previously living in [place] but moved up to be with daughter, was able to ambulate in the community without AD prior to fall. Denies falls in the last 6 months other than the one that cause the fracture (off of a curb). Personal Factors Other Personal Factors That May Effect Osteoporosis, prior history of Therapy/Recovery CVA PT-OP-C Subjective Start: 03/19/22 16:03 Freq: Status: Active Protocol: Document 03/21/22 16:11 AMB (Rec: 03/21/22 16:11 AMB [id number]) Patient Questionnaires Lower Extremity Functional Scale LEFS Score 35 LEFS Impairment 40 to 59% Impaired (Score 32- 47) PT-OP-E Functional Tests Start: 03/19/22 16:03 Freq: Status: Active Protocol: Document 03/21/22 09:45 AMB (Rec: 03/21/22 16:08 AMB [id number]) Functional Tests Five Times Sit to Stand Test Score 11 Comments heavy UE use, WB R>L PT-OP-G Mobility & Gait Start: 03/19/22 16:03 Freq: Status: Active Protocol: Document 03/21/22 09:45 AMB (Rec: 03/21/22 16:07 AMB [id number]) OP Gait Assessment Comments Gait Comments With FWW: SBA pt needed cues for upright posture, relax shoulders, tends to have a step to gait pattern and scuffs feet, cues to improve ankle dorsiflexion. With SPC: Florian, pt needs constant instruction in how to time cane and stepping. Step to gait pattern significantly more pronounced than with FWW . PT-OP-M Strength Start: 03/19/22 16:03 Freq: Status: Active Protocol: Document 03/21/22 09:45 AMB (Rec: 03/21/22 16:07 AMB [id number]) Hip Strength Hip Manual Muscle Testing Right Flexion (L2) 4+ Good+ Extension (S1) 4 Good Abduction 4 Good External Rotation 4+ Good+ Left Flexion (L2) 4 Good Extension (S1) 4- Good- Abduction 3+ Fair+ External Rotation 4 Good PT-OP-Q Treatments Start: 03/19/22 16:03 Freq: Status: Active Protocol: Document 03/21/22 09:45 AMB (Rec: 03/21/22 16:12 AMB [id number]) Therapeutic Exercises Sidelying Exercises ER Side left Reps/Minutes 2x10 Comments heavy cues abd Side left Reps/Minutes 2x10 Comments heavy cues PT-OP-T Assessment and Plan Start: 03/19/22 16:03 Freq: Status: Active Protocol: Document 03/21/22 09:45 AMB (Rec: 03/23/22 21:31 [facility] [id number]) Physical Therapy Assessment Rehab Potential Rehabilitation Potential Good Evaluation Complexity Number of Personal Factors/Comorbidities 1-2 Number of Body Systems Impaired 4 or More Clinical Presentation at Evaluation Evolving Impairments Impairments Balance,Functional Mobility, Gait,Pain,Strength Goals Two Impairment Gait Short Term Goal (STG) Marisa will ambulate with a SPC with step through gait patterning without an increase in her baseline pain. STG Duration 5 weeks Longterm Goal (LTG) Marisa will ascend and descend 2 stairs with an alternating gait independently without needing a rail, but likely with a SPC. LTG Duration 10 weeks One Impairment Strength Short Term Goal (STG) Marisa will be independent with a hip strengthening HEP. STG Duration 5 weeks Oyster Sorter Goal (LTG) Marisa will improve her left hip strength in all planes to at least 4/5. LTG Duration 10 weeks Assessment Summary Assessment Marisa attends physical therapy one month s/p L hip fracture with ORIF. She reports she was able to walk out of surgery but a few days later needed to get a FWW to be able to walk. She reports she did have a follow up X-ray at her orthopedist's office which she reports was normal. Her hip abduction strength was impaired L vs R. She also had signficant difficulty with sequencing exercises and gait which is likely due to her previous stroke and will make rehab more challenging. She will benefit from physical therapy for hip strengthening, gait training and balance training so that she can reduce her fall risk, reduce her dependence on assistive devices, and reduce her pain. Physical Therapy Plan Frequency and Duration Duration of treatment (weeks) 10 Plan of Care Start Date 03/21/22 Plan of Care End Date 05/30/22 Therapeutic Interventions Therapeutic Interventions Aquatic Therapy,Balance Training,Gait Training,Home Exercise Program,Manual Therapy,Neuromuscular Re- education,Self-Care/Home Management,Therapeutic Activities,Therapeutic Exercises Modalities Cold Pack/Ice Massage,Electric Stimulation,Hot Packs Next Visit Focus/Plan Next Note Type Treatment Note Next Visit Plan Follow up on ER and abd strengthening HEP, continue gait training, further balance assessment
--- NOTE | 2022-03-21 21:32 | PT.OPPOC ---
Addendum entered and electronically signed by Leanna Guzman, PT 03/26/22 16:07: Original plan did not have a frequency. Updated to 2x/week for 10 weeks. Original Note: Physical, Occupational & Speech Therapy At [facility] Current Diagnoses Fracture of unspecified part of neck of left femur, initial encounter for closed fracture (03/21/22) Visit Care Team Role Provider Type Gutierrez Friedman MD Attending Provider Physician Family Provider Primary Care Provider Referring Provider Specialty: Internal Medicine Address: [address] [place] [address], [address], [address] Email: [email or web address] Plan Of Care PT-OP-T Assessment and Plan Start: 03/19/22 16:03 Freq: Status: Active Protocol: Document 03/21/22 09:45 AMB (Rec: 03/23/22 21:31 AMB [id number]) Physical Therapy Assessment Rehab Potential Rehabilitation Potential Good Evaluation Complexity Number of Personal Factors/Comorbidities 1-2 Number of Body Systems Impaired 4 or More Clinical Presentation at Evaluation Evolving Impairments Impairments Balance,Functional Mobility, Gait,Pain,Strength Goals Two Impairment Gait Short Term Goal (STG) Marisa will ambulate with a SPC with step through gait patterning without an increase in her baseline pain. STG Duration 5 weeks Grocery Store Associate Goal (LTG) Marisa will ascend and descend 2 stairs with an alternating gait independently without needing a rail, but likely with a SPC. LTG Duration 10 weeks One Impairment Strength Short Term Goal (STG) Marisa will be independent with a hip strengthening HEP. STG Duration 5 weeks Care Home Goal (LTG) Marisa will improve her left hip strength in all planes to at least 4/5. LTG Duration 10 weeks Assessment Summary Assessment Marisa attends physical therapy one month s/p L hip fracture with ORIF. She reports she was able to walk out of surgery but a few days later needed to get a FWW to be able to walk. She reports she did have a follow up X-ray at her orthopedist's office which she reports was normal. Her hip abduction strength was impaired L vs R. She also had signficant difficulty with sequencing exercises and gait which is likely due to her previous stroke and will make rehab more challenging. She will benefit from physical therapy for hip strengthening, gait training and balance training so that she can reduce her fall risk, reduce her dependence on assistive devices, and reduce her pain. Physical Therapy Plan Frequency and Duration Duration of treatment (weeks) 10 Plan of Care Start Date 03/21/22 Plan of Care End Date 05/30/22 Therapeutic Interventions Therapeutic Interventions Aquatic Therapy,Balance Training,Gait Training,Home Exercise Program,Manual Therapy,Neuromuscular Re- education,Self-Care/Home Management,Therapeutic Activities,Therapeutic Exercises Modalities Cold Pack/Ice Massage,Electric Stimulation,Hot Packs Next Visit Focus/Plan Next Note Type Treatment Note Next Visit Plan Follow up on ER and abd strengthening HEP, continue gait training, further balance assessment Plan of Care Dates Plan of Care Start Date 03/21/22 Plan of Care End Date 05/30/22 Electronically Signed by: Leanna Guzman, PT 03/23/22 0766 If you are in agreement with this Plan of Care, please return a signed and dated copy. I have reviewed this Plan of Care and certify that the skilled therapy services above are required to meet the patient?s needs. Physician Signature Date Printed Name and Credentials Clinical Instructor Signature Printed Name and Credentials
--- NOTE | 2022-03-25 16:08 | PT.OTN ---
Current Diagnoses Fracture of unspecified part of neck of left femur, initial encounter for closed fracture (03/25/22) Physical Therapy Treatment Note PT-OP-A Visit Information Start: 03/19/22 16:03 Freq: Status: Active Protocol: Document 03/25/22 10:35 AMB (Rec: 03/25/22 11:20 AMB [id number]) Out-Patient Physical Therapy Visit Information Visit Information Visit Type Treatment Note Visit Start Time 10:30 Visit Stop Time 11:15 Total Visit Minutes 45 Visit Number 2 PT-OP-B Current Condition Start: 03/19/22 16:03 Freq: Status: Active Protocol: Document 03/21/22 08:52 AMB (Rec: 03/21/22 10:31 AMB [id number]) Current Condition History of Current Condition Onset Date 02/18 Current Complaints L Femur fracture History of Current Condition L ORIF, no pain with sitting, but does feel it with walking, currently using FWW. Lives in a one story home, 2 steps to enter does get help currently but no railings. Lives alone, daughter lives in [place]. Not currently driving. Did have a stroke almost 2 years ago. Not sure where. Was previously living in [place] but moved up to be with daughter, was able to ambulate in the community without AD prior to fall. Denies falls in the last 6 months other than the one that cause the fracture (off of a curb). Personal Factors Other Personal Factors That May Effect Osteoporosis, prior history of Therapy/Recovery CVA PT-OP-C Subjective Start: 03/19/22 16:03 Freq: Status: Active Protocol: Document 03/25/22 10:35 AMB (Rec: 03/25/22 11:20 AMB [id number]) OP-PT Subjective Patient Comments Patient Comments Marisa reports she had some difficulty with the clams. She has been walking a little without the FWW. PT-OP-E Functional Tests Start: 03/19/22 16:03 Freq: Status: Active Protocol: Document 03/21/22 09:45 AMB (Rec: 03/21/22 16:08 AMB [id number]) Functional Tests Five Times Sit to Stand Test Score 11 Comments heavy UE use, WB R>L PT-OP-G Mobility & Gait Start: 03/19/22 16:03 Freq: Status: Active Protocol: Document 03/21/22 09:45 AMB (Rec: 03/21/22 16:07 AMB [id number]) OP Gait Assessment Comments Gait Comments With FWW: SBA pt needed cues for upright posture, relax shoulders, tends to have a step to gait pattern and scuffs feet, cues to improve ankle dorsiflexion. With SPC: Florian, pt needs constant instruction in how to time cane and stepping. Step to gait pattern significantly more pronounced than with FWW . PT-OP-M Strength Start: 03/19/22 16:03 Freq: Status: Active Protocol: Document 03/21/22 09:45 AMB (Rec: 03/21/22 16:07 AMB [id number]) Hip Strength Hip Manual Muscle Testing Right Flexion (L2) 4+ Good+ Extension (S1) 4 Good Abduction 4 Good External Rotation 4+ Good+ Left Flexion (L2) 4 Good Extension (S1) 4- Good- Abduction 3+ Fair+ External Rotation 4 Good PT-OP-Q Treatments Start: 03/19/22 16:03 Freq: Status: Active Protocol: Document 03/25/22 10:35 AMB (Rec: 03/25/22 11:20 AMB [id number]) Cardio Equipment Recumbent Stepper (Sci-Fit) Duration (Minutes) 6 Resistance 3 Seat Position 5 Therapeutic Exercises Supine Exercises bridges Supine Exercise Name with t band around knees for greater abduction Reps/Minutes 2x10 Comments good form- HEP Sidelying Exercises ER Sidelying Exercise Name HEP Side left Reps/Minutes 2x10 Comments fewer cues needed today abd Sidelying Exercise Name HEP Side left Reps/Minutes 2x10 Comments fewer cues today Sitting Exercises sit to stand Sitting Exercise Name focus on equal weightbearing- HEP Reps/Minutes 10 Neuro Re-Education Treatment Balance Activities 1 Details weightshifting in tandem Reps/Duration 10 min, with and without UE support Comments focusing on longer stance time on the left PT-OP-T Assessment and Plan Start: 03/19/22 16:03 Freq: Status: Active Protocol: Document 03/25/22 10:35 AMB (Rec: 03/25/22 11:20 AMB [id number]) Physical Therapy Assessment Goals Two Impairment Gait Short Term Goal (STG) Marisa will ambulate with a SPC with step through gait patterning without an increase in her baseline pain. STG Duration 5 weeks Retirement Goal (LTG) Marisa will ascend and descend 2 stairs with an alternating gait independently without needing a rail, but likely with a SPC. LTG Duration 10 weeks One Impairment Strength Short Term Goal (STG) Marisa will be independent with a hip strengthening HEP. STG Duration 5 weeks Personnel Consultant Goal (LTG) Marisa will improve her left hip strength in all planes to at least 4/5. LTG Duration 10 weeks Assessment Summary Assessment Marisa improved her form with her HEP. She is getting down on the ground for it and reports she is able to do so with evironmental support, but we should evaluate her floor transfer in the future. Continues to have difficulty weightbearing through the surgical leg which limits her gait. Physical Therapy Plan Frequency and Duration Frequency of Treatment 2x/Week Duration of treatment (weeks) 10 Plan of Care Start Date 03/21/22 Plan of Care End Date 05/30/22 Therapeutic Interventions Therapeutic Interventions Aquatic Therapy,Balance Training,Gait Training,Home Exercise Program,Manual Therapy,Neuromuscular Re- education,Self-Care/Home Management,Therapeutic Activities,Therapeutic Exercises Modalities Cold Pack/Ice Massage,Electric Stimulation,Hot Packs Next Visit Focus/Plan Next Note Type Treatment Note Next Visit Plan Follow up on ER and abd strengthening HEP, continue gait training, further balance training
--- NOTE | 2022-04-02 15:52 | PT.OTN ---
Current Diagnoses Fracture of unspecified part of neck of left femur, initial encounter for closed fracture (04/02/22) Physical Therapy Treatment Note PT-OP-A Visit Information Start: 03/19/22 16:03 Freq: Status: Active Protocol: Document 04/02/22 13:46 AMB (Rec: 04/02/22 14:31 AMB [id number]) Out-Patient Physical Therapy Visit Information Visit Information Visit Type Treatment Note Visit Start Time 13:45 Visit Stop Time 14:30 Total Visit Minutes 45 Visit Number 3 PT-OP-B Current Condition Start: 03/19/22 16:03 Freq: Status: Active Protocol: Document 03/21/22 08:52 AMB (Rec: 03/21/22 10:31 AMB [id number]) Current Condition History of Current Condition Onset Date 02/18 Current Complaints L Femur fracture History of Current Condition L ORIF, no pain with sitting, but does feel it with walking, currently using FWW. Lives in a one story home, 2 steps to enter does get help currently but no railings. Lives alone, daughter lives in [place]. Not currently driving. Did have a stroke almost 2 years ago. Not sure where. Was previously living in [place] but moved up to be with daughter, was able to ambulate in the community without AD prior to fall. Denies falls in the last 6 months other than the one that cause the fracture (off of a curb). Personal Factors Other Personal Factors That May Effect Osteoporosis, prior history of Therapy/Recovery CVA PT-OP-C Subjective Start: 03/19/22 16:03 Freq: Status: Active Protocol: Document 04/02/22 13:46 AMB (Rec: 04/02/22 14:31 AMB [id number]) OP-PT Subjective Patient Comments Patient Comments Marisa attends without AD. Per her report her surgeon told her she didn't have to use her FWW anymore, that was on Thursday. She had a friend give her a SPC today, but she has not used it yet. PT-OP-E Functional Tests Start: 03/19/22 16:03 Freq: Status: Active Protocol: Document 03/21/22 09:45 AMB (Rec: 03/21/22 16:08 AMB [id number]) Functional Tests Five Times Sit to Stand Test Score 11 Comments heavy UE use, WB R>L PT-OP-G Mobility & Gait Start: 03/19/22 16:03 Freq: Status: Active Protocol: Document 03/21/22 09:45 AMB (Rec: 03/21/22 16:07 AMB [id number]) OP Gait Assessment Comments Gait Comments With FWW: SBA pt needed cues for upright posture, relax shoulders, tends to have a step to gait pattern and scuffs feet, cues to improve ankle dorsiflexion. With SPC: Florian, pt needs constant instruction in how to time cane and stepping. Step to gait pattern significantly more pronounced than with FWW . PT-OP-M Strength Start: 03/19/22 16:03 Freq: Status: Active Protocol: Document 03/21/22 09:45 AMB (Rec: 03/21/22 16:07 AMB [id number]) Hip Strength Hip Manual Muscle Testing Right Flexion (L2) 4+ Good+ Extension (S1) 4 Good Abduction 4 Good External Rotation 4+ Good+ Left Flexion (L2) 4 Good Extension (S1) 4- Good- Abduction 3+ Fair+ External Rotation 4 Good PT-OP-Q Treatments Start: 03/19/22 16:03 Freq: Status: Active Protocol: Document 04/02/22 13:45 AMB (Rec: 04/02/22 15:48 AMB [id number]) Therapeutic Exercises Supine Exercises LTR Side bilateral Reps/Minutes 2x10 bridges Supine Exercise Name with t band around knees for greater abduction Reps/Minutes 2x10 Comments good form- HEP Sidelying Exercises ER Sidelying Exercise Name HEP Side left Reps/Minutes 2x10 Comments fewer cues needed today abd Sidelying Exercise Name HEP Side left Reps/Minutes 2x10 Comments cues for alignment Standing Exercises step up Standing Exercise Name 4 good form, unable with 8 Reps/Minutes 2x10 Gait Training Gait Activity SPC Level of Assistance SBA Distance/Duration 300'x2 Comments worked on timing of SPC with gait, step through gait stairs Description 6 with railing Level of Assistance SBA Distance/Duration 4x5 Comments needs railing, attempted without but pt unable PT-OP-T Assessment and Plan Start: 03/19/22 16:03 Freq: Status: Active Protocol: Document 04/02/22 13:46 AMB (Rec: 04/02/22 14:31 AMB [id number]) Physical Therapy Assessment Goals Two Impairment Gait Short Term Goal (STG) Marisa will ambulate with a SPC with step through gait patterning without an increase in her baseline pain. STG Duration 5 weeks Long-Term Goal (LTG) Marisa will ascend and descend 2 stairs with an alternating gait independently without needing a rail, but likely with a SPC. LTG Duration 10 weeks One Impairment Strength Short Term Goal (STG) Marisa will be independent with a hip strengthening HEP. STG Duration 5 weeks Television News Producer Goal (LTG) Marisa will improve her left hip strength in all planes to at least 4/5. LTG Duration 10 weeks Assessment Summary Assessment Marisa improved with her gait this week. She needed cues for appropriate SPC usage but with time was able to improve and do well with step through gait. Pt feels stiff in the mornings and feels that she is better able to walk once she is warmed up. Encouraged her to use her SPC rather than ambulate without any AD for now. Physical Therapy Plan Frequency and Duration Frequency of Treatment 2x/Week Duration of treatment (weeks) 10 Plan of Care Start Date 03/21/22 Plan of Care End Date 05/30/22 Therapeutic Interventions Therapeutic Interventions Aquatic Therapy,Balance Training,Gait Training,Home Exercise Program,Manual Therapy,Neuromuscular Re- education,Self-Care/Home Management,Therapeutic Activities,Therapeutic Exercises Modalities Cold Pack/Ice Massage,Electric Stimulation,Hot Packs Next Visit Focus/Plan Next Note Type Treatment Note Next Visit Plan Follow up on ER and abd strengthening HEP, continue gait training, further balance training
--- NOTE | 2022-04-04 10:30 | PT.OTN ---
Current Diagnoses Fracture of unspecified part of neck of left femur, initial encounter for closed fracture (04/04/22) Physical Therapy Treatment Note PT-OP-A Visit Information Start: 03/19/22 16:03 Freq: Status: Active Protocol: Document 04/04/22 09:47 SP (Rec: 04/04/22 11:38 SP [id number]) Out-Patient Physical Therapy Visit Information Visit Information Visit Type Treatment Note Visit Start Time 09:47 Visit Stop Time 10:30 Total Visit Minutes 42 Visit Number 4 Number of SUPERVISOR TELEVISION CHASSIS REPAIR Visits 1 PT-OP-B Current Condition Start: 03/19/22 16:03 Freq: Status: Active Protocol: Document 03/21/22 08:52 AMB (Rec: 03/21/22 10:31 AMB [id number]) Current Condition History of Current Condition Onset Date 02/18 Current Complaints L Femur fracture History of Current Condition L ORIF, no pain with sitting, but does feel it with walking, currently using FWW. Lives in a one story home, 2 steps to enter does get help currently but no railings. Lives alone, daughter lives in [place]. Not currently driving. Did have a stroke almost 2 years ago. Not sure where. Was previously living in [place] but moved up to be with daughter, was able to ambulate in the community without AD prior to fall. Denies falls in the last 6 months other than the one that cause the fracture (off of a curb). Personal Factors Other Personal Factors That May Effect Osteoporosis, prior history of Therapy/Recovery CVA PT-OP-C Subjective Start: 03/19/22 16:03 Freq: Status: Active Protocol: Document 04/04/22 09:47 SP (Rec: 04/04/22 11:38 SP [id number]) OP-PT Subjective Patient Comments Patient Comments Pt reported got rid of the walker and start using SPC, she acquired a friend's SPC and wants to focus more work to better walking use of can and help stop scuffing her feet. She states she likes to walk around to greasing up my joints. PT-OP-E Functional Tests Start: 03/19/22 16:03 Freq: Status: Active Protocol: Document 03/21/22 09:45 AMB (Rec: 03/21/22 16:08 AMB [id number]) Functional Tests Five Times Sit to Stand Test Score 11 Comments heavy UE use, WB R>L PT-OP-G Mobility & Gait Start: 03/19/22 16:03 Freq: Status: Active Protocol: Document 03/21/22 09:45 AMB (Rec: 03/21/22 16:07 AMB [id number]) OP Gait Assessment Comments Gait Comments With FWW: SBA pt needed cues for upright posture, relax shoulders, tends to have a step to gait pattern and scuffs feet, cues to improve ankle dorsiflexion. With SPC: Florian, pt needs constant instruction in how to time cane and stepping. Step to gait pattern significantly more pronounced than with FWW . PT-OP-M Strength Start: 03/19/22 16:03 Freq: Status: Active Protocol: Document 03/21/22 09:45 AMB (Rec: 03/21/22 16:07 AMB [id number]) Hip Strength Hip Manual Muscle Testing Right Flexion (L2) 4+ Good+ Extension (S1) 4 Good Abduction 4 Good External Rotation 4+ Good+ Left Flexion (L2) 4 Good Extension (S1) 4- Good- Abduction 3+ Fair+ External Rotation 4 Good PT-OP-Q Treatments Start: 03/19/22 16:03 Freq: Status: Active Protocol: Document 04/04/22 09:47 SP (Rec: 04/04/22 11:38 SP [id number]) Therapeutic Exercises Sitting Exercises heel/toe raises Sitting Exercise Name added to HEP Side bilateral Reps/Minutes x20 Comments cues initially for directioning and provided HO improved self demonstration LAQ Sitting Exercise Name added to HEP Side bilateral Resistance AROM alternating Reps/Minutes 2x10 Comments good seated posture ankle DF, EV Sitting Exercise Name in PT (to many cues for HEP) Side bilateral Resistance TB #2 Reps/Minutes 2x10 Comments max cues and physical set up, direction of form sit to stand Sitting Exercise Name arms across chest, added to HEP Equipment Used mesh chair Reps/Minutes 10 Comments cues focus on equal weightbearing- improved stability and I descent. Standing Exercises marching Standing Exercise Name in PT Side bilateral Equipment Used light 1 finger contact rail, knee lift toward rail Reps/Minutes 3x5 reps each Maria E Comments Improved stability SLS and less UE support with cues book in head HRTR Standing Exercise Name in PT Side bilateral Reps/Minutes 2x10 each direction Comments cues initially for directioning and provided HO improved self demonstration Gait Training Gait Activity SPC Level of Assistance SBA Distance/Duration 340 ft Treatment Focus SPC sequencing, increase foot clearance, stride Comments worked on timing of SPC in RUE with LLE gait, step through gait, SUPERVISOR TELEVISION CHASSIS REPAIR adjusted pink SPC lower for proper fit improved advancement clearance consistantly. Cued slower pacing, improved sequencing SPC RUE with LLE. PT-OP-T Assessment and Plan Start: 03/19/22 16:03 Freq: Status: Active Protocol: Document 04/04/22 09:47 SP (Rec: 04/04/22 11:38 SP [id number]) Physical Therapy Assessment Goals Two Impairment Gait Short Term Goal (STG) Marisa will ambulate with a SPC with step through gait patterning without an increase in her baseline pain. STG Duration 5 weeks Half-Way Goal (LTG) Marisa will ascend and descend 2 stairs with an alternating gait independently without needing a rail, but likely with a SPC. LTG Duration 10 weeks One Impairment Strength Short Term Goal (STG) Marisa will be independent with a hip strengthening HEP. STG Duration 5 weeks Vp Product Management Goal (LTG) Marisa will improve her left hip strength in all planes to at least 4/5. LTG Duration 10 weeks Assessment Summary Assessment Pt improved better sequencing of and advancement timing of SPC with LLE with increased awareness of foot clearance and receiprocal stride equal distance B. Pt able to better understand seated AROM. Physical Therapy Plan Frequency and Duration Frequency of Treatment 2x/Week Duration of treatment (weeks) 10 Plan of Care Start Date 03/21/22 Plan of Care End Date 05/30/22 Therapeutic Interventions Therapeutic Interventions Aquatic Therapy,Balance Training,Gait Training,Home Exercise Program,Manual Therapy,Neuromuscular Re- education,Self-Care/Home Management,Therapeutic Activities,Therapeutic Exercises Modalities Cold Pack/Ice Massage,Electric Stimulation,Hot Packs Next Visit Focus/Plan Next Note Type Treatment Note Next Visit Plan Follow up on HEP with HOs: HRTR, LAQ, STS, ER and abd strengthening HEP. Next review supine HEP, had questions if doing correctly end tx. POC: continue gait training, further balance training
--- NOTE | 2022-04-21 16:11 | PT.OTRE ---
Current Diagnoses Fracture of unspecified part of neck of left femur, initial encounter for closed fracture (04/21/22) Past Medical History (Last Reviewed 04/07/22 @ 02:57 by Harris You MD) Cervical cancer (~2018) Essential hypertension Fracture of femoral neck, left, closed Hearing loss (~2020) History of endometrial cancer HLD (hyperlipidemia) Hydrocephalus (~2020) Osteoporosis (~2001) Stroke, hemorrhagic (~2020) Subarachnoid hemorrhage Uterine cancer (~2018) Surgical History (Last Reviewed 04/07/22 @ 02:57 by Harris You MD) Anesthesia History of hysterectomy (~04/2019) Status post ventricular shunt placement (~06/2020) Visit Care Team Role Provider Type Gutierrez Friedman MD Attending Provider Physician Family Provider Primary Care Provider Referring Provider Specialty: Internal Medicine Address: [address] [place] [address], [address], [facility] Email: [email or web address] Physical Therapy Re-Evaluation PT-OP-A Visit Information Start: 03/19/22 16:03 Freq: Status: Active Protocol: Document 04/21/22 09:47 AMB (Rec: 04/21/22 10:13 AMB [id number]) Out-Patient Physical Therapy Visit Information Visit Information Visit Type Re-Evaluation Visit Start Time 09:45 Visit Stop Time 10:30 Total Visit Minutes 45 Visit Number 5 PT-OP-B Current Condition Start: 03/19/22 16:03 Freq: Status: Active Protocol: Document 03/21/22 08:52 AMB (Rec: 03/21/22 10:31 AMB [id number]) Current Condition History of Current Condition Onset Date 02/18 Current Complaints L Femur fracture History of Current Condition L ORIF, no pain with sitting, but does feel it with walking, currently using FWW. Lives in a one story home, 2 steps to enter does get help currently but no railings. Lives alone, daughter lives in [place]. Not currently driving. Did have a stroke almost 2 years ago. Not sure where. Was previously living in [place] but moved up to be with daughter, was able to ambulate in the community without AD prior to fall. Denies falls in the last 6 months other than the one that cause the fracture (off of a curb). Personal Factors Other Personal Factors That May Effect Osteoporosis, prior history of Therapy/Recovery CVA PT-OP-C Subjective Start: 03/19/22 16:03 Freq: Status: Active Protocol: Document 04/21/22 09:47 AMB (Rec: 04/21/22 10:13 AMB [id number]) OP-PT Subjective Patient Comments Patient Comments Pt no longer using SPC, FWW. Pt felt odd and was admitted to the hospital. Hasn't seen PCP yet because daughter had covid and wasn't able to drive her. PT-OP-D Balance Start: 03/19/22 16:03 Freq: Status: Active Protocol: Document 04/21/22 09:45 AMB (Rec: 04/21/22 15:55 AMB [id number]) [place] Balance Assessment Evaluation Sitting to Standing Ability Independent w/out Hands Unsupported Stance Safely- 2 minutes Sitting Unsupported, Feet on Floor Safely- 2 minutes Standing to Sitting Ability Safely, Minimal Hand Use Transfer Ability Safely, Minimal Hand Use Unsupported Stance- Eyes Closed Safely, 10 seconds Unsupported Stance- Eyes Open Independent, 1 minute Reaching Forward Standing Confidently, 10 inches Pick- Up Object From Floor Independent/Safe Look Behind Shoulder - Standing Shifts Weight Well Turning 360 Degrees Turns slowly, but safely Unsupported Stance, Alternating Feet on 4 Steps w/Supervision Stair Unsupported Tandem Stance Small Step- 30 seconds Unilateral Leg Stance Lifts Leg/Holds 5-10 secs Total Score [place] Total Score (out of 56 points) 49 [place] Impairment Rating 1 to 19% Impaired (Score 45-55 ) PT-OP-E Functional Tests Start: 03/19/22 16:03 Freq: Status: Active Protocol: Document 03/21/22 09:45 AMB (Rec: 03/21/22 16:08 AMB [id number]) Functional Tests Five Times Sit to Stand Test Score 11 Comments heavy UE use, WB R>L PT-OP-G Mobility & Gait Start: 03/19/22 16:03 Freq: Status: Active Protocol: Document 03/21/22 09:45 AMB (Rec: 03/21/22 16:07 AMB [id number]) OP Gait Assessment Comments Gait Comments With FWW: SBA pt needed cues for upright posture, relax shoulders, tends to have a step to gait pattern and scuffs feet, cues to improve ankle dorsiflexion. With SPC: Florian, pt needs constant instruction in how to time cane and stepping. Step to gait pattern significantly more pronounced than with FWW . PT-OP-M Strength Start: 03/19/22 16:03 Freq: Status: Active Protocol: Document 03/21/22 09:45 AMB (Rec: 03/21/22 16:07 AMB [id number]) Hip Strength Hip Manual Muscle Testing Right Flexion (L2) 4+ Good+ Extension (S1) 4 Good Abduction 4 Good External Rotation 4+ Good+ Left Flexion (L2) 4 Good Extension (S1) 4- Good- Abduction 3+ Fair+ External Rotation 4 Good PT-OP-Q Treatments Start: 03/19/22 16:03 Freq: Status: Active Protocol: Document 04/21/22 09:45 AMB (Rec: 04/21/22 16:09 AMB [id number]) Therapeutic Exercises Sitting Exercises sit to stand Sitting Exercise Name arms across chest, added to HEP Equipment Used mesh chair Reps/Minutes 10 Comments cues focus on equal weightbearing- improved stability and I descent. Standing Exercises step up Standing Exercise Name 6 forward and lateral Side left Reps/Minutes 2x10 Comments UE support on rail Gait Training Gait Activity trekking poles Level of Assistance SBA Surface carpet, tile Distance/Duration 200' Comments pt states fearful she would trip on poles stairs Description 6 with railing Level of Assistance SBA Distance/Duration 4x5 Comments cont to be safer with railing Neuro Re-Education Treatment Balance Activities 1 Details corner modified Tandem Comments EO HT, EC in clinic EO no HT for HEP PT-OP-T Assessment and Plan Start: 03/19/22 16:03 Freq: Status: Active Protocol: Document 04/21/22 09:47 AMB (Rec: 04/21/22 10:13 AMB [id number]) Physical Therapy Assessment Goals Three Impairment Balance Short Term Goal (STG) Marisa will show improved balance by scoring 53/56 or greater on the [place]. STG Duration 4 weeks Warehouse Supervisor Goal (LTG) Marisa will be independent with a HEP for her static and dynamic balance. LTG Duration 6 weeks Two Impairment Gait Short Term Goal (STG) Marisa will ambulate with a SPC with step through gait patterning without an increase in her baseline pain. STG Duration EXCEEDED- no pain without AD 12/5 Mcfp Goal (LTG) Marisa will ascend and descend 2 stairs with an alternating gait independently without needing a rail, but likely with a SPC. LTG Duration 10 weeks One Impairment Strength Short Term Goal (STG) Marisa will be independent with a hip strengthening HEP. STG Duration 5 weeks Mcfp Goal (LTG) Marisa will improve her left hip strength in all planes to at least 4/5. LTG Duration 10 weeks Assessment Summary Assessment Marisa returns to physical therapy after ER/hospital admission for possible TIA. She is no longer using a FWW or SPC. Tested [place] Balance Scale today and with 49/56 did recommend Marisa consider SPC vs trekking poles for community ambulation. She states she has not been walking in the community since her fracture, but would like to return to this. Did encourage her to walk with her daughter first before walking alone. Overall Marisa's strength and balance are improved since evluation despite her recent hospitilization. Recommend continued PT to strengthen and work on dynamic balance as pt has a goal of returning to community ambulation. Physical Therapy Plan Frequency and Duration Frequency of Treatment 2x/Week Duration of treatment (weeks) 6 Plan of Care Start Date 04/21/22 Plan of Care End Date 06/02/22 Therapeutic Interventions Therapeutic Interventions Aquatic Therapy,Balance Training,Gait Training,Home Exercise Program,Manual Therapy,Neuromuscular Re- education,Self-Care/Home Management,Therapeutic Activities,Therapeutic Exercises Modalities Cold Pack/Ice Massage,Electric Stimulation,Hot Packs Next Visit Focus/Plan Next Note Type Treatment Note Next Visit Plan Follow up on HEP with HOs: corener balance semi tandem, HRTR, LAQ, STS, ER and abd strengthening
--- NOTE | 2022-04-21 16:12 | PT.OPPOC ---
Physical, Occupational & Speech Therapy At [facility] Current Diagnoses Fracture of unspecified part of neck of left femur, initial encounter for closed fracture (04/21/22) Visit Care Team Role Provider Type Gutierrez Friedman MD Attending Provider Physician Family Provider Primary Care Provider Referring Provider Specialty: Internal Medicine Address: [address] [place] [address], [address], [address] Email: [email or web address] Plan Of Care PT-OP-T Assessment and Plan Start: 03/19/22 16:03 Freq: Status: Active Protocol: Document 04/21/22 09:47 AMB (Rec: 04/21/22 10:13 AMB [id number]) Physical Therapy Assessment Goals Three Impairment Balance Short Term Goal (STG) Marisa will show improved balance by scoring 53/56 or greater on the [place]. STG Duration 4 weeks Handle Bar Assembler Goal (LTG) Marisa will be independent with a HEP for her static and dynamic balance. LTG Duration 6 weeks Two Impairment Gait Short Term Goal (STG) Marisa will ambulate with a SPC with step through gait patterning without an increase in her baseline pain. STG Duration EXCEEDED- no pain without AD 12/5 Mcc Goal (LTG) Marisa will ascend and descend 2 stairs with an alternating gait independently without needing a rail, but likely with a SPC. LTG Duration 10 weeks One Impairment Strength Short Term Goal (STG) Marisa will be independent with a hip strengthening HEP. STG Duration 5 weeks Handle Bar Assembler Goal (LTG) Marisa will improve her left hip strength in all planes to at least 4/5. LTG Duration 10 weeks Assessment Summary Assessment Marisa returns to physical therapy after ER/hospital admission for possible TIA. She is no longer using a FWW or SPC. Tested [place] Balance Scale today and with 49/56 did recommend Marisa consider SPC vs trekking poles for community ambulation. She states she has not been walking in the community since her fracture, but would like to return to this. Did encourage her to walk with her daughter first before walking alone. Overall Marisa's strength and balance are improved since evluation despite her recent hospitilization. Recommend continued PT to strengthen and work on dynamic balance as pt has a goal of returning to community ambulation. Physical Therapy Plan Frequency and Duration Frequency of Treatment 2x/Week Duration of treatment (weeks) 6 Plan of Care Start Date 04/21/22 Plan of Care End Date 06/02/22 Therapeutic Interventions Therapeutic Interventions Aquatic Therapy,Balance Training,Gait Training,Home Exercise Program,Manual Therapy,Neuromuscular Re- education,Self-Care/Home Management,Therapeutic Activities,Therapeutic Exercises Modalities Cold Pack/Ice Massage,Electric Stimulation,Hot Packs Next Visit Focus/Plan Next Note Type Treatment Note Next Visit Plan Follow up on HEP with HOs: corener balance semi tandem, HRTR, LAQ, STS, ER and abd strengthening Plan of Care Dates Plan of Care Start Date 04/21/22 Plan of Care End Date 06/02/22 Electronically Signed by: Leanna Guzman, PT 04/21/22 4705 If you are in agreement with this Plan of Care, please return a signed and dated copy. I have reviewed this Plan of Care and certify that the skilled therapy services above are required to meet the patient?s needs. Physician Signature Date Printed Name and Credentials Clinical Instructor Signature Printed Name and Credentials
--- NOTE | 2022-04-23 12:43 | PT-OP ANOTE ---
Pt canceled appointment today due to not being able to get out of garage.
--- NOTE | 2022-04-28 14:20 | PT.OTN ---
Current Diagnoses Fracture of unspecified part of neck of left femur, initial encounter for closed fracture (04/28/22) Physical Therapy Treatment Note PT-OP-A Visit Information Start: 03/19/22 16:03 Freq: Status: Active Protocol: Document 04/28/22 09:54 AMB (Rec: 04/28/22 10:28 AMB [id number]) Out-Patient Physical Therapy Visit Information Visit Information Visit Type Treatment Note Visit Start Time 09:50 Visit Stop Time 10:30 Total Visit Minutes 45 Visit Number 6 PT-OP-B Current Condition Start: 03/19/22 16:03 Freq: Status: Active Protocol: Document 03/21/22 08:52 AMB (Rec: 03/21/22 10:31 AMB [id number]) Current Condition History of Current Condition Onset Date 02/18 Current Complaints L Femur fracture History of Current Condition L ORIF, no pain with sitting, but does feel it with walking, currently using FWW. Lives in a one story home, 2 steps to enter does get help currently but no railings. Lives alone, daughter lives in [place]. Not currently driving. Did have a stroke almost 2 years ago. Not sure where. Was previously living in [place] but moved up to be with daughter, was able to ambulate in the community without AD prior to fall. Denies falls in the last 6 months other than the one that cause the fracture (off of a curb). Personal Factors Other Personal Factors That May Effect Osteoporosis, prior history of Therapy/Recovery CVA PT-OP-C Subjective Start: 03/19/22 16:03 Freq: Status: Active Protocol: Document 04/28/22 09:45 AMB (Rec: 04/28/22 14:15 AMB [id number]) OP-PT Subjective Patient Comments Patient Comments Pt drove herself to her appt today. Still feels some stiffness when first moving, is worried about her balance. PT-OP-D Balance Start: 03/19/22 16:03 Freq: Status: Active Protocol: Document 04/21/22 09:45 AMB (Rec: 04/21/22 15:55 AMB [id number]) [place] Balance Assessment Evaluation Sitting to Standing Ability Independent w/out Hands Unsupported Stance Safely- 2 minutes Sitting Unsupported, Feet on Floor Safely- 2 minutes Standing to Sitting Ability Safely, Minimal Hand Use Transfer Ability Safely, Minimal Hand Use Unsupported Stance- Eyes Closed Safely, 10 seconds Unsupported Stance- Eyes Open Independent, 1 minute Reaching Forward Standing Confidently, 10 inches Pick- Up Object From Floor Independent/Safe Look Behind Shoulder - Standing Shifts Weight Well Turning 360 Degrees Turns slowly, but safely Unsupported Stance, Alternating Feet on 4 Steps w/Supervision Stair Unsupported Tandem Stance Small Step- 30 seconds Unilateral Leg Stance Lifts Leg/Holds 5-10 secs Total Score [place] Total Score (out of 56 points) 49 [place] Impairment Rating 1 to 19% Impaired (Score 45-55 ) PT-OP-E Functional Tests Start: 03/19/22 16:03 Freq: Status: Active Protocol: Document 03/21/22 09:45 AMB (Rec: 03/21/22 16:08 AMB [id number]) Functional Tests Five Times Sit to Stand Test Score 11 Comments heavy UE use, WB R>L PT-OP-G Mobility & Gait Start: 03/19/22 16:03 Freq: Status: Active Protocol: Document 03/21/22 09:45 AMB (Rec: 03/21/22 16:07 AMB [id number]) OP Gait Assessment Comments Gait Comments With FWW: SBA pt needed cues for upright posture, relax shoulders, tends to have a step to gait pattern and scuffs feet, cues to improve ankle dorsiflexion. With SPC: Florian, pt needs constant instruction in how to time cane and stepping. Step to gait pattern significantly more pronounced than with FWW . PT-OP-M Strength Start: 03/19/22 16:03 Freq: Status: Active Protocol: Document 03/21/22 09:45 AMB (Rec: 03/21/22 16:07 AMB [id number]) Hip Strength Hip Manual Muscle Testing Right Flexion (L2) 4+ Good+ Extension (S1) 4 Good Abduction 4 Good External Rotation 4+ Good+ Left Flexion (L2) 4 Good Extension (S1) 4- Good- Abduction 3+ Fair+ External Rotation 4 Good PT-OP-Q Treatments Start: 03/19/22 16:03 Freq: Status: Active Protocol: Document 04/28/22 09:45 AMB (Rec: 04/28/22 14:15 AMB [id number]) Therapeutic Exercises Sitting Exercises sit to stand Sitting Exercise Name arms across chest, added to HEP Equipment Used mesh chair Reps/Minutes 10 Comments cues focus on equal weightbearing- improved stability and I descent. Standing Exercises step up Standing Exercise Name 6 forward and lateral Side left Reps/Minutes 2x10 Comments UE support on rail Neuro Re-Education Treatment Balance Activities stair tap up Details without railing Reps/Duration 2x10 hurdles Details 3 hurdles x 6; 3 hurdles and 3 foam pods Comments CGA for hurdles and foam, SBA for hurdles foam Details NBOS Surface blue foam Reps/Duration 30x4 Comments EO, then EC, then EO HT 1 Details next to sink Comments EO HT, EC in clinic EO no HT for HEP PT-OP-T Assessment and Plan Start: 03/19/22 16:03 Freq: Status: Active Protocol: Document 04/28/22 09:54 AMB (Rec: 04/28/22 10:28 AMB [id number]) Physical Therapy Assessment Goals Three Impairment Balance Short Term Goal (STG) Marisa will show improved balance by scoring 53/56 or greater on the [place]. STG Duration 4 weeks Long-Term Goal (LTG) Marisa will be independent with a HEP for her static and dynamic balance. LTG Duration 6 weeks Two Impairment Gait Short Term Goal (STG) Marisa will ambulate with a SPC with step through gait patterning without an increase in her baseline pain. STG Duration EXCEEDED- no pain without AD 12/5 Clinical Staff Rn Goal (LTG) Marisa will ascend and descend 2 stairs with an alternating gait independently without needing a rail, but likely with a SPC. LTG Duration 10 weeks One Impairment Strength Short Term Goal (STG) Marisa will be independent with a hip strengthening HEP. STG Duration 5 weeks Clinical Staff Rn Goal (LTG) Marisa will improve her left hip strength in all planes to at least 4/5. LTG Duration 10 weeks Assessment Summary Assessment marisa felt the biggest problem with corner balance HEP was finding a corner in her home, so she adapted to next to the sink. Gait/strength is improving, but pt challenged with uneven terrain. Physical Therapy Plan Frequency and Duration Frequency of Treatment 2x/Week Duration of treatment (weeks) 6 Plan of Care Start Date 04/21/22 Plan of Care End Date 06/02/22 Therapeutic Interventions Therapeutic Interventions Aquatic Therapy,Balance Training,Gait Training,Home Exercise Program,Manual Therapy,Neuromuscular Re- education,Self-Care/Home Management,Therapeutic Activities,Therapeutic Exercises Modalities Cold Pack/Ice Massage,Electric Stimulation,Hot Packs Next Visit Focus/Plan Next Note Type Treatment Note Next Visit Plan Follow up on HEP with HOs: corener balance semi tandem, HRTR, LAQ, STS, ER and abd strengthening
--- NOTE | 2022-04-30 13:02 | PT.OTN ---
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 Lives in a one story home, 2 steps to enter does get help currently but no railings. Lives alone, daughter lives in [place]. Not currently driving. Did have a stroke almost 2 years ago. Not sure where. Was previously living in [place] but moved up to be with daughter, was able to ambulate in the community without AD prior to fall. Denies falls in the last 6 months other than the one that cause the fracture (off of a curb). Personal Factors Other Personal Factors That May Effect Osteoporosis, prior history of Therapy/Recovery CVA PT-OP-C Subjective Start: 03/19/22 16:03 Freq: Status: Active Protocol: Document 04/30/22 12:20 SP (Rec: 04/30/22 13:30 SP [id number]) OP-PT Subjective Patient Comments Patient Comments Pt reports compliant with HEP, feels L hip ROM getting better, balance can still be challenging. Pt reported her garage is fixed and she just started driving again, hasn't since Feb. PT-OP-D Balance Start: 03/19/22 16:03 Freq: Status: Active Protocol: Document 04/21/22 09:45 AMB (Rec: 04/21/22 15:55 AMB [id number]) [place] Balance Assessment Evaluation Sitting to Standing Ability Independent w/out Hands Unsupported Stance Safely- 2 minutes Sitting Unsupported, Feet on Floor Safely- 2 minutes Standing to Sitting Ability Safely, Minimal Hand Use Transfer Ability Safely, Minimal Hand Use Unsupported Stance- Eyes Closed Safely, 10 seconds Unsupported Stance- Eyes Open Independent, 1 minute Reaching Forward Standing Confidently, 10 inches Pick- Up Object From Floor Independent/Safe Look Behind Shoulder - Standing Shifts Weight Well Turning 360 Degrees Turns slowly, but safely Unsupported Stance, Alternating Feet on 4 Steps w/Supervision Stair Unsupported Tandem Stance Small Step- 30 seconds Unilateral Leg Stance Lifts Leg/Holds 5-10 secs Total Score [place] Total Score (out of 56 points) 49 [place] Impairment Rating 1 to 19% Impaired (Score 45-55 ) PT-OP-E Functional Tests Start: 03/19/22 16:03 Freq: Status: Active Protocol: Document 03/21/22 09:45 AMB (Rec: 03/21/22 16:08 AMB [id number]) Functional Tests Five Times Sit to Stand Test Score 11 Comments heavy UE use, WB R>L PT-OP-G Mobility & Gait Start: 03/19/22 16:03 Freq: Status: Active Protocol: Document 03/21/22 09:45 AMB (Rec: 03/21/22 16:07 AMB [id number]) OP Gait Assessment Comments Gait Comments With FWW: SBA pt needed cues for upright posture, relax shoulders, tends to have a step to gait pattern and scuffs feet, cues to improve ankle dorsiflexion. With SPC: Florian, pt needs constant instruction in how to time cane and stepping. Step to gait pattern significantly more pronounced than with FWW . PT-OP-M Strength Start: 03/19/22 16:03 Freq: Status: Active Protocol: Document 03/21/22 09:45 AMB (Rec: 03/21/22 16:07 AMB [id number]) Hip Strength Hip Manual Muscle Testing Right Flexion (L2) 4+ Good+ Extension (S1) 4 Good Abduction 4 Good External Rotation 4+ Good+ Left Flexion (L2) 4 Good Extension (S1) 4- Good- Abduction 3+ Fair+ External Rotation 4 Good PT-OP-Q Treatments Start: 03/19/22 16:03 Freq: Status: Active Protocol: Document 04/30/22 12:20 SP (Rec: 04/30/22 13:30 SP [id number]) Gym Equipment Sport Cord green Exercise Details f, b, side R and L stepping Cord/Resistance green Reps/Duration 5 reps back, 2 reps fwd, 2 reps lateral Comments limited time, cued push into resistance and slow controlled step return to start w/ core facilitation. Therapeutic Exercises Supine Exercises bridges Reps/Minutes x10 reps Comments good form- HEP Sitting Exercises sit to stand Sitting Exercise Name arms across chest (floor) reviewed HEP, hands front STS on foam Equipment Used 18 table good form, added foam little challenge in PT only Reps/Minutes 10 reps floor, and on foam Comments cues focus on equal weightbearing full foot, improved asc/descend form Standing Exercises step up Standing Exercise Name 6 forward only 04/30 Side left Resistance bottom step stairs Equipment Used no UE support Reps/Minutes 2x10 Comments cued soft step and less momentum step up on LLE, lessened but still needs Neuro Re-Education Treatment Balance Activities step up/down Details in PT (fwd up, back down) Surface 4, 6 step, foam, near rail contact PRN Reps/Duration 10 repse each Comments 1. step up/ back down 4 2. step up/ back down 6 3. step up/ back down 4 + blue foam *repeated cues and time needed for processing carryover. hurdles Details f/lateral Surface CGA> close SBA Equipment 6 hurdles x3 laps each direction Comments cued tall posture, core fac and soft stepping, improved with reps. PT-OP-T Assessment and Plan Start: 03/19/22 16:03 Freq: Status: Active Protocol: Document 04/30/22 12:20 SP (Rec: 04/30/22 13:30 SP [id number]) Physical Therapy Assessment Goals Three Impairment Balance Short Term Goal (STG) Marisa will show improved balance by scoring 53/56 or greater on the [place]. STG Duration 4 weeks Shelter Goal (LTG) Marisa will be independent with a HEP for her static and dynamic balance. LTG Duration 6 weeks Two Impairment Gait Short Term Goal (STG) Marisa will ambulate with a SPC with step through gait patterning without an increase in her baseline pain. STG Duration EXCEEDED- no pain without AD 04/21 Logistics Project Manager Goal (LTG) Marisa will ascend and descend 2 stairs with an alternating gait independently without needing a rail, but likely with a SPC. LTG Duration 10 weeks One Impairment Strength Short Term Goal (STG) Marisa will be independent with a hip strengthening HEP. STG Duration 5 weeks Shelter Goal (LTG) Marisa will improve her left hip strength in all planes to at least 4/5. LTG Duration 10 weeks Assessment Summary Assessment Pt improved stability with core and hip abd facilitation during balance activities with cues for tall posturing, core and soft stepping. Pt able to receiprocal stepping hurdles and SLS time stability, step ups on uneven surface CG 1UE support initially then no UE. Pt does need mod- Max cues for requested patterning, little challenging remembering pattern. Physical Therapy Plan Frequency and Duration Frequency of Treatment 2x/Week Duration of treatment (weeks) 6 Plan of Care Start Date 04/21/22 Plan of Care End Date 06/02/22 Therapeutic Interventions Therapeutic Interventions Aquatic Therapy,Balance Training,Gait Training,Home Exercise Program,Manual Therapy,Neuromuscular Re- education,Self-Care/Home Management,Therapeutic Activities,Therapeutic Exercises Modalities Cold Pack/Ice Massage,Electric Stimulation,Hot Packs Next Visit Focus/Plan Next Note Type Treatment Note Next Visit Plan Next tx: Follow up on HEP with HOs: corner balance semi tandem, HRTR, LAQ, STS, ER and abd strengthening Continue sport cord balance recovery add dynamic gait HTs, quick start/stop/pivots.
--- NOTE | 2022-05-07 15:58 | PT.OTN ---
Current Diagnoses Fracture of unspecified part of neck of left femur, initial encounter for closed fracture (05/07/22) Physical Therapy Treatment Note PT-OP-A Visit Information Start: 03/19/22 16:03 Freq: Status: Active Protocol: Document 05/07/22 13:49 AMB (Rec: 05/07/22 14:34 AMB [id number]) Out-Patient Physical Therapy Visit Information Visit Information Visit Type Treatment Note Visit Start Time 13:45 Visit Stop Time 14:30 Total Visit Minutes 42 Visit Number 8 PT-OP-B Current Condition Start: 03/19/22 16:03 Freq: Status: Active Protocol: Document 03/21/22 08:52 AMB (Rec: 03/21/22 10:31 AMB [id number]) Current Condition History of Current Condition Onset Date 02/18 Current Complaints L Femur fracture History of Current Condition L ORIF, no pain with sitting, but does feel it with walking, currently using FWW. Lives in a one story home, 2 steps to enter does get help currently but no railings. Lives alone, daughter lives in [place]. Not currently driving. Did have a stroke almost 2 years ago. Not sure where. Was previously living in [place] but moved up to be with daughter, was able to ambulate in the community without AD prior to fall. Denies falls in the last 6 months other than the one that cause the fracture (off of a curb). Personal Factors Other Personal Factors That May Effect Osteoporosis, prior history of Therapy/Recovery CVA PT-OP-C Subjective Start: 03/19/22 16:03 Freq: Status: Active Protocol: Document 05/07/22 13:45 AMB (Rec: 05/07/22 15:55 AMB [id number]) OP-PT Subjective Patient Comments Patient Comments Pt reports is still a little nervous with the balance, feels like 3 more appts might just be fine, hoping to get exercises that she can do at home. PT-OP-D Balance Start: 03/19/22 16:03 Freq: Status: Active Protocol: Document 04/21/22 09:45 AMB (Rec: 04/21/22 15:55 AMB [id number]) [place] Balance Assessment Evaluation Sitting to Standing Ability Independent w/out Hands Unsupported Stance Safely- 2 minutes Sitting Unsupported, Feet on Floor Safely- 2 minutes Standing to Sitting Ability Safely, Minimal Hand Use Transfer Ability Safely, Minimal Hand Use Unsupported Stance- Eyes Closed Safely, 10 seconds Unsupported Stance- Eyes Open Independent, 1 minute Reaching Forward Standing Confidently, 10 inches Pick- Up Object From Floor Independent/Safe Look Behind Shoulder - Standing Shifts Weight Well Turning 360 Degrees Turns slowly, but safely Unsupported Stance, Alternating Feet on 4 Steps w/Supervision Stair Unsupported Tandem Stance Small Step- 30 seconds Unilateral Leg Stance Lifts Leg/Holds 5-10 secs Total Score [place] Total Score (out of 56 points) 49 [place] Impairment Rating 1 to 19% Impaired (Score 45-55 ) PT-OP-E Functional Tests Start: 03/19/22 16:03 Freq: Status: Active Protocol: Document 03/21/22 09:45 AMB (Rec: 03/21/22 16:08 AMB [id number]) Functional Tests Five Times Sit to Stand Test Score 11 Comments heavy UE use, WB R>L PT-OP-G Mobility & Gait Start: 03/19/22 16:03 Freq: Status: Active Protocol: Document 03/21/22 09:45 AMB (Rec: 03/21/22 16:07 AMB [id number]) OP Gait Assessment Comments Gait Comments With FWW: SBA pt needed cues for upright posture, relax shoulders, tends to have a step to gait pattern and scuffs feet, cues to improve ankle dorsiflexion. With SPC: Florian, pt needs constant instruction in how to time cane and stepping. Step to gait pattern significantly more pronounced than with FWW . PT-OP-M Strength Start: 03/19/22 16:03 Freq: Status: Active Protocol: Document 03/21/22 09:45 AMB (Rec: 03/21/22 16:07 AMB [id number]) Hip Strength Hip Manual Muscle Testing Right Flexion (L2) 4+ Good+ Extension (S1) 4 Good Abduction 4 Good External Rotation 4+ Good+ Left Flexion (L2) 4 Good Extension (S1) 4- Good- Abduction 3+ Fair+ External Rotation 4 Good PT-OP-Q Treatments Start: 03/19/22 16:03 Freq: Status: Active Protocol: Document 05/07/22 13:45 AMB (Rec: 05/07/22 15:55 AMB [id number]) Therapeutic Exercises Standing Exercises hip abduction Standing Exercise Name HEP Reps/Minutes 2x10 mini lunges Standing Exercise Name HEP Reps/Minutes 2x10 step up Standing Exercise Name 6 forward and lateral Side left Equipment Used no UE support forward, one UE lateral Reps/Minutes 2x10 Comments cued soft step and less momentum step up on LLE, lessened but still needs Neuro Re-Education Treatment Balance Activities 1 Details next to sink Comments EO HT, EC in clinic EO no HT for HEP with stride stance PT-OP-T Assessment and Plan Start: 03/19/22 16:03 Freq: Status: Active Protocol: Document 05/07/22 13:49 AMB (Rec: 05/07/22 14:34 AMB [id number]) Physical Therapy Assessment Goals Three Impairment Balance Short Term Goal (STG) Marisa will show improved balance by scoring 53/56 or greater on the [place]. STG Duration 4 weeks Half-Way Goal (LTG) Marisa will be independent with a HEP for her static and dynamic balance. LTG Duration 6 weeks Two Impairment Gait Short Term Goal (STG) Marisa will ambulate with a SPC with step through gait patterning without an increase in her baseline pain. STG Duration EXCEEDED- no pain without AD 12/5 Half-Way Goal (LTG) Marisa will ascend and descend 2 stairs with an alternating gait independently without needing a rail, but likely with a SPC. LTG Duration 10 weeks One Impairment Strength Short Term Goal (STG) Marisa will be independent with a hip strengthening HEP. STG Duration 5 weeks Half-Way Goal (LTG) Marisa will improve her left hip strength in all planes to at least 4/5. LTG Duration 10 weeks Assessment Summary Assessment Marisa is doing well, but needs continued written description of exercise she is supposed to be performing at home. Extra time taken today to work on HEP and independence with HEP. Physical Therapy Plan Frequency and Duration Frequency of Treatment 2x/Week Duration of treatment (weeks) 6 Plan of Care Start Date 04/21/22 Plan of Care End Date 06/02/22 Therapeutic Interventions Therapeutic Interventions Aquatic Therapy,Balance Training,Gait Training,Home Exercise Program,Manual Therapy,Neuromuscular Re- education,Self-Care/Home Management,Therapeutic Activities,Therapeutic Exercises Modalities Cold Pack/Ice Massage,Electric Stimulation,Hot Packs Next Visit Focus/Plan Next Note Type Treatment Note Next Visit Plan Next tx: Follow up on HEP with HOs: corner balance semi tandem, HRTR, LAQ, STS, ER and abd strengthening Continue sport cord balance recovery add dynamic gait HTs, quick start/stop/pivots.
--- NOTE | 2022-05-14 12:23 | PT.OTN ---
Current Diagnoses Fracture of unspecified part of neck of left femur, initial encounter for closed fracture (05/14/22) Physical Therapy Treatment Note PT-OP-A Visit Information Start: 03/19/22 16:03 Freq: Status: Active Protocol: Document 05/14/22 11:09 AMB (Rec: 05/14/22 11:15 AMB [id number]) Out-Patient Physical Therapy Visit Information Visit Information Visit Type Treatment Note Visit Start Time 11:00 Visit Stop Time 11:45 Total Visit Minutes 45 Visit Number 9 PT-OP-B Current Condition Start: 03/19/22 16:03 Freq: Status: Active Protocol: Document 03/21/22 08:52 AMB (Rec: 03/21/22 10:31 AMB [id number]) Current Condition History of Current Condition Onset Date 02/18 Current Complaints L Femur fracture History of Current Condition L ORIF, no pain with sitting, but does feel it with walking, currently using FWW. Lives in a one story home, 2 steps to enter does get help currently but no railings. Lives alone, daughter lives in [place]. Not currently driving. Did have a stroke almost 2 years ago. Not sure where. Was previously living in [place] but moved up to be with daughter, was able to ambulate in the community without AD prior to fall. Denies falls in the last 6 months other than the one that cause the fracture (off of a curb). Personal Factors Other Personal Factors That May Effect Osteoporosis, prior history of Therapy/Recovery CVA PT-OP-C Subjective Start: 03/19/22 16:03 Freq: Status: Active Protocol: Document 05/14/22 11:09 AMB (Rec: 05/14/22 11:15 AMB [id number]) OP-PT Subjective Patient Comments Patient Comments Pt ran [place] [employer] to get to [facility] earlier today and then the hip has been feeling a little stiff since then. PT-OP-D Balance Start: 03/19/22 16:03 Freq: Status: Active Protocol: Document 04/21/22 09:45 AMB (Rec: 04/21/22 15:55 AMB [id number]) [place] Balance Assessment Evaluation Sitting to Standing Ability Independent w/out Hands Unsupported Stance Safely- 2 minutes Sitting Unsupported, Feet on Floor Safely- 2 minutes Standing to Sitting Ability Safely, Minimal Hand Use Transfer Ability Safely, Minimal Hand Use Unsupported Stance- Eyes Closed Safely, 10 seconds Unsupported Stance- Eyes Open Independent, 1 minute Reaching Forward Standing Confidently, 10 inches Pick- Up Object From Floor Independent/Safe Look Behind Shoulder - Standing Shifts Weight Well Turning 360 Degrees Turns slowly, but safely Unsupported Stance, Alternating Feet on 4 Steps w/Supervision Stair Unsupported Tandem Stance Small Step- 30 seconds Unilateral Leg Stance Lifts Leg/Holds 5-10 secs Total Score [place] Total Score (out of 56 points) 49 [place] Impairment Rating 1 to 19% Impaired (Score 45-55 ) PT-OP-E Functional Tests Start: 03/19/22 16:03 Freq: Status: Active Protocol: Document 03/21/22 09:45 AMB (Rec: 03/21/22 16:08 AMB [id number]) Functional Tests Five Times Sit to Stand Test Score 11 Comments heavy UE use, WB R>L PT-OP-G Mobility & Gait Start: 03/19/22 16:03 Freq: Status: Active Protocol: Document 03/21/22 09:45 AMB (Rec: 03/21/22 16:07 AMB [id number]) OP Gait Assessment Comments Gait Comments With FWW: SBA pt needed cues for upright posture, relax shoulders, tends to have a step to gait pattern and scuffs feet, cues to improve ankle dorsiflexion. With SPC: Florian, pt needs constant instruction in how to time cane and stepping. Step to gait pattern significantly more pronounced than with FWW . PT-OP-M Strength Start: 03/19/22 16:03 Freq: Status: Active Protocol: Document 03/21/22 09:45 AMB (Rec: 03/21/22 16:07 AMB [id number]) Hip Strength Hip Manual Muscle Testing Right Flexion (L2) 4+ Good+ Extension (S1) 4 Good Abduction 4 Good External Rotation 4+ Good+ Left Flexion (L2) 4 Good Extension (S1) 4- Good- Abduction 3+ Fair+ External Rotation 4 Good PT-OP-Q Treatments Start: 03/19/22 16:03 Freq: Status: Active Protocol: Document 05/14/22 11:09 AMB (Rec: 05/14/22 11:15 AMB [id number]) Therapeutic Exercises Standing Exercises hip abduction Standing Exercise Name HEP Reps/Minutes 2x10 Comments at railing mini lunges Standing Exercise Name HEP Reps/Minutes 2x10 Comments no UE support Gait Training Gait Activity without AD Description extra cues for understanding task Level of Assistance SBA Comments stop, start, turns Neuro Re-Education Treatment Balance Activities step up/down Details in PT (fwd up, back down) Surface 4, 6 step, near rail contact PRN Reps/Duration 10 repse each Comments 1. step up/ back down 4 2. step up/ back down 6 *repeated cues and time needed for processing carryover. stair tap up Details without railing Reps/Duration 2x10 1 Details next to sink Comments EO HT, EC in clinic EO no HT for HEP with stride stance PT-OP-T Assessment and Plan Start: 03/19/22 16:03 Freq: Status: Active Protocol: Document 05/14/22 10:35 AMB (Rec: 05/14/22 10:52 AMB [id number]) Physical Therapy Assessment Goals Three Impairment Balance Short Term Goal (STG) Marisa will show improved balance by scoring 53/56 or greater on the [place]. STG Duration NOT MET 49/56 Halfway Goal (LTG) Marisa will be independent with a HEP for her static and dynamic balance. LTG Duration 6 weeks Two Impairment Gait Short Term Goal (STG) Marisa will ambulate with a SPC with step through gait patterning without an increase in her baseline pain. STG Duration EXCEEDED- no pain without AD 12/5 Farmworker Fruit Goal (LTG) Marisa will ascend and descend 2 stairs with an alternating gait independently without needing a rail, but likely with a SPC. LTG Duration PARTIALLY MET- needs to touch down on wall but doesn't use SPC One Impairment Strength Short Term Goal (STG) Marisa will be independent with a hip strengthening HEP. STG Duration 5 weeks Farmworker Fruit Goal (LTG) Marisa will improve her left hip strength in all planes to at least 4/5. LTG Duration 10 weeks Assessment Summary Assessment Pt scored 49/56 on [place] Balance score (exact score from a few weeks ago). Pt encouraged to take a walking stick with her if she is going to be walking on uneven terrain (grass, sand, etc). Pt states it has been difficult to do HEP over the holidays. Was having more discomfort in hip today after running to eye doctor, so recommend rechecking MMT as pt has been stronger in the past . Pt feels overall she continues to have some stiffness in the hip. Encouraged pt to try HEP on so that she can come with any questions or concerns and review HEP final MMT at that point. Physical Therapy Plan Frequency and Duration Frequency of Treatment 2x/Week Duration of treatment (weeks) 6 Plan of Care Start Date 04/21/22 Plan of Care End Date 06/02/22 Therapeutic Interventions Therapeutic Interventions Aquatic Therapy,Balance Training,Gait Training,Home Exercise Program,Manual Therapy,Neuromuscular Re- education,Self-Care/Home Management,Therapeutic Activities,Therapeutic Exercises Modalities Cold Pack/Ice Massage,Electric Stimulation,Hot Packs Next Visit Focus/Plan Next Note Type Treatment Note Next Visit Plan Next tx: Follow up on HEP with HOs: corner balance semi tandem, HRTR, LAQ, STS, ER and abd strengthening Continue sport cord balance recovery add dynamic gait HTs, quick start/stop/pivots. Pt does not have more appts scheduled, did discuss that she can schedule more until POC expires, but pt at this point has not done so.
--- NOTE | 2022-05-16 10:30 | PT.OTN ---
Current Diagnoses Fracture of unspecified part of neck of left femur, initial encounter for closed fracture (05/16/22) Physical Therapy Treatment Note PT-OP-A Visit Information Start: 03/19/22 16:03 Freq: Status: Active Protocol: Document 05/16/22 09:48 SP (Rec: 05/16/22 10:36 SP [id number]) Out-Patient Physical Therapy Visit Information Visit Information Visit Type Treatment Note Visit Start Time 09:48 Visit Stop Time 10:30 Total Visit Minutes 42 Visit Number 10 Number of SIDE HEMMER Visits 1 PT-OP-B Current Condition Start: 03/19/22 16:03 Freq: Status: Active Protocol: Document 03/21/22 08:52 AMB (Rec: 03/21/22 10:31 AMB [id number]) Current Condition History of Current Condition Onset Date 02/18 Current Complaints L Femur fracture History of Current Condition L ORIF, no pain with sitting, but does feel it with walking, currently using FWW. Lives in a one story home, 2 steps to enter does get help currently but no railings. Lives alone, daughter lives in [place]. Not currently driving. Did have a stroke almost 2 years ago. Not sure where. Was previously living in [place] but moved up to be with daughter, was able to ambulate in the community without AD prior to fall. Denies falls in the last 6 months other than the one that cause the fracture (off of a curb). Personal Factors Other Personal Factors That May Effect Osteoporosis, prior history of Therapy/Recovery CVA PT-OP-C Subjective Start: 03/19/22 16:03 Freq: Status: Active Protocol: Document 05/16/22 09:48 SP (Rec: 05/16/22 10:36 SP [id number]) OP-PT Subjective Patient Comments Patient Comments Pt states L hip still little weak but much better and thinks doing well with HEP and wonder if ready to continue on own. PT-OP-D Balance Start: 03/19/22 16:03 Freq: Status: Active Protocol: Document 04/21/22 09:45 AMB (Rec: 04/21/22 15:55 AMB [id number]) [place] Balance Assessment Evaluation Sitting to Standing Ability Independent w/out Hands Unsupported Stance Safely- 2 minutes Sitting Unsupported, Feet on Floor Safely- 2 minutes Standing to Sitting Ability Safely, Minimal Hand Use Transfer Ability Safely, Minimal Hand Use Unsupported Stance- Eyes Closed Safely, 10 seconds Unsupported Stance- Eyes Open Independent, 1 minute Reaching Forward Standing Confidently, 10 inches Pick- Up Object From Floor Independent/Safe Look Behind Shoulder - Standing Shifts Weight Well Turning 360 Degrees Turns slowly, but safely Unsupported Stance, Alternating Feet on 4 Steps w/Supervision Stair Unsupported Tandem Stance Small Step- 30 seconds Unilateral Leg Stance Lifts Leg/Holds 5-10 secs Total Score [place] Total Score (out of 56 points) 49 [place] Impairment Rating 1 to 19% Impaired (Score 45-55 ) PT-OP-E Functional Tests Start: 03/19/22 16:03 Freq: Status: Active Protocol: Document 03/21/22 09:45 AMB (Rec: 03/21/22 16:08 AMB [id number]) Functional Tests Five Times Sit to Stand Test Score 11 Comments heavy UE use, WB R>L PT-OP-G Mobility & Gait Start: 03/19/22 16:03 Freq: Status: Active Protocol: Document 03/21/22 09:45 AMB (Rec: 03/21/22 16:07 AMB [id number]) OP Gait Assessment Comments Gait Comments With FWW: SBA pt needed cues for upright posture, relax shoulders, tends to have a step to gait pattern and scuffs feet, cues to improve ankle dorsiflexion. With SPC: Florian, pt needs constant instruction in how to time cane and stepping. Step to gait pattern significantly more pronounced than with FWW . PT-OP-M Strength Start: 03/19/22 16:03 Freq: Status: Active Protocol: Document 05/16/22 09:48 SP (Rec: 05/16/22 10:36 SP [id number]) Hip Strength Hip Manual Muscle Testing Right Flexion (L2) 5 Normal Extension (S1) 5 Normal Abduction 5 Normal Adduction 4+ Good+ External Rotation 5 Normal Left Flexion (L2) 4+ Good+ Extension (S1) 5 Normal Abduction 4+ Good+ Adduction 4 Good External Rotation 4+ Good+ PT-OP-Q Treatments Start: 03/19/22 16:03 Freq: Status: Active Protocol: Document 05/16/22 09:48 SP (Rec: 05/16/22 10:36 SP [id number]) Therapeutic Exercises Standing Exercises hip abduction Standing Exercise Name HEP reviewed Equipment Used 1 UE contact rail Reps/Minutes 20 ft x4 laps Comments cued tall posture, trail LE foot clearance, mini lunges Standing Exercise Name HEP reviewed Equipment Used hands hover counter Reps/Minutes 2x10 Comments no UE support, cued knee bend alternate Gait Training Gait Activity without AD Description cued no scuffing/ DF Level of Assistance SBA Surface firm Distance/Duration 160 ft (1 laps hallway) Comments improved stride/foot clearance and stability Neuro Re-Education Treatment Balance Activities 1 Details next to sink Comments EO stationary and HT stride stance good form with cues for tall posture, wt between BLEs. PT-OP-T Assessment and Plan Start: 03/19/22 16:03 Freq: Status: Active Protocol: Document 05/16/22 09:48 SP (Rec: 05/16/22 10:36 SP [id number]) Physical Therapy Assessment Goals Three Impairment Balance Short Term Goal (STG) Marisa will show improved balance by scoring 53/56 or greater on the [place]. STG Duration NOT MET 49/56 Halfway Goal (LTG) Marisa will be independent with a HEP for her static and dynamic balance. 05/16/22: provided few cues wt between BLEs, DF/ no scuffing normalized gait and good carryover. LTG Duration 6 weeks Two Impairment Gait Short Term Goal (STG) Marisa will ambulate with a SPC with step through gait patterning without an increase in her baseline pain. STG Duration EXCEEDED- no pain without AD 12 Halfway Goal (LTG) Marisa will ascend and descend 2 stairs with an alternating gait independently without needing a rail, but likely with a SPC. 05/16/22: pt demonstrates lateral pressure on home wall for safety balance support receiprocal patterning ascending, step to descending. LTG Duration PARTIALLY MET 05/16/22 One Impairment Strength Short Term Goal (STG) Marisa will be independent with a hip strengthening HEP. STG Duration 5 weeks Halfway Goal (LTG) Marisa will improve her left hip strength in all planes to at least 4/5. 05/16/22: GOAL MET: LLE improved 5/5 extension, 4+/5 Flex/ABD, add 4/5, abd 4 LTG Duration GOAL MET 05/16/22 Progress Towards Goals Progress Towards Goals Progressing Toward Goals Progress Comments MET LTG #1 LLE strength gains. Assessment Summary Assessment Pt able to maintain stationary balance stance HEP with increased challenge head turns . Improved with occasional cues for equal WB BLE and upright posturing. Cued for little knee bend with lunges to allow full benefit strengthening of HEP. Pt reports felt more confident added cues and written on reprint of HO of HEP this tx that can continue on her own. Physical Therapy Plan Frequency and Duration Frequency of Treatment 2x/Week Duration of treatment (weeks) 6 Plan of Care Start Date 04/21/22 Plan of Care End Date 06/02/22 Therapeutic Interventions Therapeutic Interventions Aquatic Therapy,Balance Training,Gait Training,Home Exercise Program,Manual Therapy,Neuromuscular Re- education,Self-Care/Home Management,Therapeutic Activities,Therapeutic Exercises Modalities Cold Pack/Ice Massage,Electric Stimulation,Hot Packs Discharge Physical Therapy Discharge Reasons Patient Request Discharge Comments Pt felt more confident with HEP and added cues this tx and written on reprinted HOs. SHe feels able to continue on her own. Next Visit Focus/Plan Next Note Type Discharge Summary Next Visit Plan PT to complete
--- NOTE | 2022-05-26 08:51 | PT.OPDS ---
Current Diagnoses Fracture of unspecified part of neck of left femur, initial encounter for closed fracture (05/16/22) Visit Care Team Role Provider Type Gutierrez Friedman MD Attending Provider Physician Family Provider Primary Care Provider Referring Provider Specialty: Internal Medicine Address: [address] [place] [address], [address], [facility] Email: [email or web address] Visit Number Visit Number 10 Discharge Summary PT-OP-B Current Condition Start: 03/19/22 16:03 Freq: Status: Active Protocol: Document 03/21/22 08:52 AMB (Rec: 03/21/22 10:31 AMB [id number]) Current Condition History of Current Condition Onset Date 02/18 Current Complaints L Femur fracture History of Current Condition L ORIF, no pain with sitting, but does feel it with walking, currently using FWW. Lives in a one story home, 2 steps to enter does get help currently but no railings. Lives alone, daughter lives in [place]. Not currently driving. Did have a stroke almost 2 years ago. Not sure where. Was previously living in [place] but moved up to be with daughter, was able to ambulate in the community without AD prior to fall. Denies falls in the last 6 months other than the one that cause the fracture (off of a curb). Personal Factors Other Personal Factors That May Effect Osteoporosis, prior history of Therapy/Recovery CVA PT-OP-C Subjective Start: 03/19/22 16:03 Freq: Status: Active Protocol: Document 05/16/22 09:48 SP (Rec: 05/16/22 10:36 SP [id number]) OP-PT Subjective Patient Comments Patient Comments Pt states L hip still little weak but much better and thinks doing well with HEP and wonder if ready to continue on own. PT-OP-D Balance Start: 03/19/22 16:03 Freq: Status: Active Protocol: Document 04/21/22 09:45 AMB (Rec: 04/21/22 15:55 AMB [id number]) [place] Balance Assessment Evaluation Sitting to Standing Ability Independent w/out Hands Unsupported Stance Safely- 2 minutes Sitting Unsupported, Feet on Floor Safely- 2 minutes Standing to Sitting Ability Safely, Minimal Hand Use Transfer Ability Safely, Minimal Hand Use Unsupported Stance- Eyes Closed Safely, 10 seconds Unsupported Stance- Eyes Open Independent, 1 minute Reaching Forward Standing Confidently, 10 inches Pick- Up Object From Floor Independent/Safe Look Behind Shoulder - Standing Shifts Weight Well Turning 360 Degrees Turns slowly, but safely Unsupported Stance, Alternating Feet on 4 Steps w/Supervision Stair Unsupported Tandem Stance Small Step- 30 seconds Unilateral Leg Stance Lifts Leg/Holds 5-10 secs Total Score [place] Total Score (out of 56 points) 49 [place] Impairment Rating 1 to 19% Impaired (Score 45-55 ) PT-OP-E Functional Tests Start: 03/19/22 16:03 Freq: Status: Active Protocol: Document 03/21/22 09:45 AMB (Rec: 03/21/22 16:08 AMB [id number]) Functional Tests Five Times Sit to Stand Test Score 11 Comments heavy UE use, WB R>L PT-OP-G Mobility & Gait Start: 03/19/22 16:03 Freq: Status: Active Protocol: Document 03/21/22 09:45 AMB (Rec: 03/21/22 16:07 AMB [id number]) OP Gait Assessment Comments Gait Comments With FWW: SBA pt needed cues for upright posture, relax shoulders, tends to have a step to gait pattern and scuffs feet, cues to improve ankle dorsiflexion. With SPC: Florian, pt needs constant instruction in how to time cane and stepping. Step to gait pattern significantly more pronounced than with FWW . PT-OP-M Strength Start: 03/19/22 16:03 Freq: Status: Active Protocol: Document 05/16/22 09:48 SP (Rec: 05/16/22 10:36 SP [id number]) Hip Strength Hip Manual Muscle Testing Right Flexion (L2) 5 Normal Extension (S1) 5 Normal Abduction 5 Normal Adduction 4+ Good+ External Rotation 5 Normal Left Flexion (L2) 4+ Good+ Extension (S1) 5 Normal Abduction 4+ Good+ Adduction 4 Good External Rotation 4+ Good+ PT-OP-T Assessment and Plan Start: 03/19/22 16:03 Freq: Status: Active Protocol: Document 05/26/22 08:49 AMB (Rec: 05/26/22 08:51 AMB [id number]) Physical Therapy Assessment Goals Three Impairment Balance Short Term Goal (STG) Marisa will show improved balance by scoring 53/56 or greater on the [place]. STG Duration NOT MET 49/56 Mcfp Goal (LTG) Marisa will be independent with a HEP for her static and dynamic balance. 05/16/22: provided few cues wt between BLEs, DF/ no scuffing normalized gait and good carryover. LTG Duration 6 weeks Two Impairment Gait Short Term Goal (STG) Marisa will ambulate with a SPC with step through gait patterning without an increase in her baseline pain. STG Duration EXCEEDED- no pain without AD 04/21 Clerical Aide Teacher Goal (LTG) Marisa will ascend and descend 2 stairs with an alternating gait independently without needing a rail, but likely with a SPC. 05/16/22: pt demonstrates lateral pressure on home wall for safety balance support receiprocal patterning ascending, step to descending. LTG Duration PARTIALLY MET 05/16/22 One Impairment Strength Short Term Goal (STG) Marisa will be independent with a hip strengthening HEP. STG Duration 5 weeks Clerical Aide Teacher Goal (LTG) Marisa will improve her left hip strength in all planes to at least 4/5. 05/16/22: GOAL MET: LLE improved 5/5 extension, 4+/5 Flex/ABD, add 4/5, abd 4 LTG Duration GOAL MET 05/16/22 Assessment Summary Assessment Marisa's gait has improved significantly since eval. Continues to have some balance impairment and encouraged to use AD when on uneven terrain in the community. Otherwise Pt is doing well if she continues with her HEP. Physical Therapy Plan Discharge Physical Therapy Discharge Reasons Patient Request Discharge Comments Pt felt more confident with HEP and added cues this tx and written on reprinted HOs. SHe feels able to continue on her own.
== END 2022-05-27 09:16 | disposition home or self-care (01) ==
LOC: PHYS 09:45
PROVIDERS: Family Provider Student in an Organized Health Care Education/Training Program; PCP Student in an Organized Health Care Education/Training Program; Referring Provider Student in an Organized Health Care Education/Training Program; Visit Provider Student in an Organized Health Care Education/Training Program
DX: S72.002A Fracture of unspecified part of neck of left femur, initial encounter for closed fracture (principal)
CPT/HCPCS: 97110; 97112; 97116; 97161; 97164

== ENCOUNTER → 2022-09-22 12:46 | Outpatient (CLI) | payer MEDICARE, BC, SELFPAY ==
--- NOTE | 2022-09-22 | DI.MG.S_ITS ---
BILATERAL DIGITAL SCREENING MAMMOGRAM 3D/2D WITH CAD: 09/22/2022 CLINICAL: Routine screening. Family history of breast cancer. Comparison is made to exams dated: 09/19/2021 mammogram, 08/24/2020 mammogram - , 07/11/2019 mammogram, 03/01/2018 mammogram, and 01/17/2016 mammogram - outside location. Both breasts are heterogeneously dense, which may obscure small masses (category c / 51-75% glandular tissue). Current study was also evaluated with a Computer Aided Detection (CAD) system. No significant masses, calcifications, or other findings are seen in either breast. There has been no significant interval change. IMPRESSION: NEGATIVE There is no mammographic evidence of malignancy. A 1 year screening mammogram is recommended. Based on the Tyrer Cuzick model (a risk assessment model) the patient's lifetime risk is 11.0% and her 10 year risk is 0.0%. According to the ACR, ACS, and NCCN guidelines, an annual breast MRI exam along with mammogram is recommended if the patient's lifetime risk is 20% or greater. This exam was interpreted at Station ID: [id number]. NOTE: For mammograms, a report in lay terms will be sent to the patient. Approximately 15% of breast malignancies will not be visualized mammographically. In the management of a palpable breast mass, a negative mammogram must not discourage biopsy of a clinically suspicious lesion. Electronically Signed By: Arnulfo justin/tim:09/22/2022 17:10:03 letter sent: Normal Exam ACR BI-RADS Category 1: Negative 3341F
== END ==
PROVIDERS: Family Provider Student in an Organized Health Care Education/Training Program; PCP Student in an Organized Health Care Education/Training Program; Referring Provider Student in an Organized Health Care Education/Training Program; Visit Provider Student in an Organized Health Care Education/Training Program
DX: Z12.31 Encounter for screening mammogram for malignant neoplasm of breast (principal); Z80.3 Family history of malignant neoplasm of breast
CPT/HCPCS: 77063; 77067

== ENCOUNTER → 2022-10-31 11:36 | Outpatient (CLI) | payer MEDICARE, BC, SELFPAY ==
[2022-10-31 13:08] LABS: Add Manual Diff / Slide Review NO; Basophils Absolute Auto 200 /uL (0-100); Basophils Percent Auto 3.8 % (0-2); Eosinophils Absolute Auto 100 /uL (0-450); Eosinophils Percent Auto 1.7 % (2-4); Hematocrit 42.5 % (36-46); Hemoglobin 14.2 g/dL (12.0-16.0); Lymphocytes Absolute Auto 1100 /uL (1100-4500); Lymphocytes Percent Auto 25.7 % (25-40); Mean Corpuscular HGB Conc 33.3 % (30-36); Monocytes Absolute Auto 300 /uL (0-900); Monocytes Percent Auto 7.3 % (3-14); Neutrophils Absolute Auto 2500 /uL (1500-7000); Neutrophils Percent Auto 61.5 % (50-75); Platelet Count 261 X10^3/uL (150-400); Red Blood Cell Count 4.72 X10^6/uL (4.0-5.2); Red Cell Distribution Width 14.8 % (11.6-14.8); White Blood Cell Count 4.1 X10^3/uL (4.5-11.0)
[2022-10-31 13:28] LABS: Alanine Aminotransferase 33 IU/L (<35); Albumin 4.3 g/dL (3.5-5.0); Albumin Globulin Ratio 1.5 (1.0-2.8); Alkaline Phosphatase 92 U/L (38-126); Aspartate Aminotransferase 28 IU/L (14-36); BUN Creatinine Ratio 26.3 (6-22); Bilirubin Total 0.8 mg/dL (0.2-1.3); Blood Urea Nitrogen 15 mg/dL (7-17); Calcium 9.8 mg/dL (8.4-10.2); Carbon Dioxide 30 mmol/L (22-32); Chloride 102 mmol/L (98-107); Cholesterol 140 mg/dL (140-199); Estimated Glomerular Filt Rate > 60 mL/min (>60); Globulin 2.8 g/dL (1.7-4.1); Glucose 100 mg/dL (80-110); HDL Cholesterol 68 mg/dL (40-60); HEMOLYSIS < 15 (0-50); LDL Cholesterol Calculated 61 mg/dL (<100); Potassium 4.3 mmol/L (3.4-5.1); Sodium 138 mmol/L (137-145); Total Protein 7.1 g/dL (6.3-8.2); Triglycerides 54 mg/dL (35-150)
[2022-10-31 13:40] LABS: Vitamin D 25 Hydroxy (D3) 86.4 ng/mL (30.0-100.0)
[2022-10-31 13:53] LABS: TSH w/ Reflex to FT4 0.91 uIU/mL (0.47-4.68)
[2022-10-31 15:07] LABS: Appearance Urine UA CLOUDY; Bilirubin Urine UA NEGATIVE (NEGATIVE); Color Urine UA YELLOW; Glucose Urine UA NEGATIVE (Negative); Ketones Urine UA TRACE (NEGATIVE); Leukocyte Esterase Urine UA NEGATIVE (NEGATIVE); Nitrite Urine UA NEGATIVE (Negative); Occult Blood Urine UA NEGATIVE (Negative); Protein Urine UA NEGATIVE (Negative); Urobilinogen Urine UA 0.2 E.U./dL (0.2)
[2022-10-31 15:23] LABS: pH Urine UA 7.5 (4.5-8.0)
[2022-10-31 15:38] LABS: Bacteria Urine None Seen; Culture Indicated Urine Cult Not Indicated; Other Crystals Urine Moderate Amorphous; RBC Urine 0-1/HPF (0-5/HPF); Squamous Epithelial Cell Urine 0-1 /HPF (0-5/HPF); WBC Urine 0-1/HPF (0-5/HPF)
== END ==
PROVIDERS: Family Provider Student in an Organized Health Care Education/Training Program; PCP Pediatrics; Referring Provider Pediatrics; Visit Provider Pediatrics
DX: Z00.00 Encounter for general adult medical examination without abnormal findings (principal); I10 Essential (primary) hypertension; Z98.2 Presence of cerebrospinal fluid drainage device; Z86.73 Personal history of transient ischemic attack (TIA), and cerebral infarction without residual deficits
CPT/HCPCS: 36415; 80053; 80061; 81001; 82306; 84443; 85025

== ENCOUNTER → 2022-11-20 12:15 | Outpatient (CLI) | payer MEDICARE, BC, SELFPAY ==
--- NOTE | 2022-11-20 12:16 | DI.US.S_ITS ---
PROCEDURE: US CAROTID DOPPLER BI INDICATIONS: SCREENING TECHNIQUE: Color and pulse Doppler interrogation was performed of both carotid systems, with image documentation and velocity measurements. COMPARISON: None. FINDINGS: Stenosis calculations are based on SRU (Society of Radiologists in Ultrasound) criteria. Right side: Brachial blood pressure: 110/55 mm Hg. Common carotid artery peak systolic velocity: 102 cm/sec. Internal carotid artery peak systolic velocity: 78 cm/sec. Internal carotid artery end diastolic velocity: 23 cm/sec. External carotid artery peak systolic velocity: 93 cm/sec. ICA/CCA peak systolic ratio: 0.8 . Mahajan scale imaging description: Mild sclerotic plaque Percent internal carotid artery stenosis: Less than 50 . Vertebral artery: Flow direction is antegrade. Left side: Brachial blood pressure: 127/63 mm Hg. Common carotid artery peak systolic velocity: 85 cm/sec. Internal carotid artery peak systolic velocity: 85 cm/sec. Internal carotid artery end diastolic velocity: 30 cm/sec. External carotid artery peak systolic velocity: 126 cm/sec. ICA/CCA peak systolic ratio: 1.0 . Mahajan scale imaging description: Mild atherosclerotic plaque Percent internal carotid artery stenosis: Less than 50 . Vertebral artery: Flow direction is antegrade. IMPRESSION: Mild atherosclerotic plaque results in less than 50% stenosis in both proximal ICA Approved by: Alex Cifuentes M.D. on 11/20/2022 at 18:02
== END ==
PROVIDERS: Family Provider Student in an Organized Health Care Education/Training Program; PCP Pediatrics; Referring Provider Pediatrics; Visit Provider Pediatrics
DX: I63.9 Cerebral infarction, unspecified (principal); I65.23 Occlusion and stenosis of bilateral carotid arteries; E78.5 Hyperlipidemia, unspecified
CPT/HCPCS: 93880

== ENCOUNTER → 2023-07-07 14:45 | Outpatient (CLI) | payer MEDICARE, BC, SELFPAY ==
[2023-07-07 16:41] LABS: Alanine Aminotransferase 27 IU/L (<35); Albumin 3.8 g/dL (3.5-5.0); Albumin Globulin Ratio 1.7 (1.0-2.8); Alkaline Phosphatase 91 U/L (38-126); Aspartate Aminotransferase 28 IU/L (14-36); Bilirubin Total 0.7 mg/dL (0.2-1.3); Bilirubin Unconjugated 0.6 mg/dL (0.0-1.1); Globulin 2.3 g/dL (1.7-4.1); HEMOLYSIS < 15 (0-50); Total Protein 6.1 g/dL (6.3-8.2)
== END ==
LOC: LAB 14:49
PROVIDERS: Family Provider Student in an Organized Health Care Education/Training Program; PCP Student in an Organized Health Care Education/Training Program; Referring Provider Podiatrist Foot & Ankle Surgery; Visit Provider Podiatrist Foot & Ankle Surgery
DX: B35.1 Tinea unguium (principal)
CPT/HCPCS: 36415; 80076

== ENCOUNTER → 2023-09-29 12:43 | Outpatient (CLI) | payer MEDICARE, BC, SELFPAY ==
--- NOTE | 2023-09-29 12:45 | DI.MG.S_ITS ---
BILATERAL DIGITAL SCREENING MAMMOGRAM 3D/2D WITH CAD: 09/29/2023 CLINICAL: Routine screening. Family history of breast cancer. Comparison is made to exams dated: 09/22/2022 mammogram, 09/19/2021 mammogram, and 08/24/2020 mammogram - [facility]. Both breasts are heterogeneously dense, which may obscure small masses (category c / 51-75% glandular tissue). Current study was also evaluated with a Computer Aided Detection (CAD) system. No significant masses, calcifications, or other findings are seen in either breast. There has been no significant interval change. IMPRESSION: NEGATIVE There is no mammographic evidence of malignancy. A 1 year screening mammogram is recommended. Based on the Tyrer Cuzick model (a risk assessment model) the patient's lifetime risk is 10.0% and her 10 year risk is 0.0%. According to the ACR, ACS, and NCCN guidelines, an annual breast MRI exam along with mammogram is recommended if the patient's lifetime risk is 20% or greater. This exam was interpreted at Station ID: [id number]. NOTE: For mammograms, a report in lay terms will be sent to the patient. Approximately 15% of breast malignancies will not be visualized mammographically. In the management of a palpable breast mass, a negative mammogram must not discourage biopsy of a clinically suspicious lesion. Electronically Signed By: Casper mckeon/tim:09/29/2023 18:00:13 letter sent: Normal Exam ACR BI-RADS Category 1: Negative [id number]
== END ==
LOC: MAMMO 12:44
PROVIDERS: Family Provider Student in an Organized Health Care Education/Training Program; PCP Student in an Organized Health Care Education/Training Program; Referring Provider Student in an Organized Health Care Education/Training Program; Visit Provider Student in an Organized Health Care Education/Training Program
DX: Z12.31 Encounter for screening mammogram for malignant neoplasm of breast (principal); Z80.3 Family history of malignant neoplasm of breast; R92.333 Mammographic heterogeneous density, bilateral breasts
CPT/HCPCS: 77063; 77067

== ENCOUNTER → 2023-12-01 09:54 | Outpatient (CLI) | payer MEDICARE, BC, SELFPAY ==
[2023-12-01 10:48] LABS: Add Manual Diff / Slide Review NO; Basophils Absolute Auto 100 /uL (0-100); Basophils Percent Auto 2.7 % (0-2); Eosinophils Absolute Auto 100 /uL (0-450); Eosinophils Percent Auto 2.3 % (2-4); Hematocrit 42.3 % (36-46); Lymphocytes Absolute Auto 1300 /uL (1100-4500); Lymphocytes Percent Auto 23.9 % (25-40); Mean Corpuscular Hemoglobin 30.6 PG (26-34); Mean Corpuscular Volume 92.6 fL (80-100); Monocytes Absolute Auto 300 /uL (0-900); Monocytes Percent Auto 5.9 % (3-14); Neutrophils Absolute Auto 3600 /uL (1500-7000); Neutrophils Percent Auto 65.2 % (50-75); Platelet Count 224 X10^3/uL (150-400); Red Blood Cell Count 4.57 X10^6/uL (4.0-5.2); Red Cell Distribution Width 14.1 % (11.6-14.8); White Blood Cell Count 5.5 X10^3/uL (4.5-11.0)
[2023-12-01 11:32] LABS: Alanine Aminotransferase 20 IU/L (<35); Albumin Globulin Ratio 1.7 (1.0-2.8); Alkaline Phosphatase 95 U/L (38-126); Aspartate Aminotransferase 22 IU/L (14-36); BUN Creatinine Ratio 26.5 (6-22); Bilirubin Total 0.6 mg/dL (0.2-1.3); Blood Urea Nitrogen 18 mg/dL (7-17); Carbon Dioxide 30 mmol/L (22-32); Chloride 107 mmol/L (98-107); Cholesterol 132 mg/dL (140-199); Estimated Glomerular Filt Rate > 60 mL/min (>60); Globulin 2.4 g/dL (1.7-4.1); Glucose 103 mg/dL (80-110); HDL Cholesterol 83 mg/dL (40-60); HEMOLYSIS < 15 (0-50); LDL Cholesterol Calculated 37 mg/dL (<100); Sodium 141 mmol/L (137-145); Total Protein 6.4 g/dL (6.3-8.2); Triglycerides 58 mg/dL (35-150)
[2023-12-01 11:47] LABS: Hemoglobin A1C% w Est Avg Glu 5.5 % (4.0-6.0)
[2023-12-01 11:50] LABS: TSH w/ Reflex to FT4 1.44 uIU/mL (0.47-4.68)
== END ==
PROVIDERS: Family Provider Student in an Organized Health Care Education/Training Program; PCP Student in an Organized Health Care Education/Training Program; Referring Provider Student in an Organized Health Care Education/Training Program; Visit Provider Student in an Organized Health Care Education/Training Program
DX: R53.83 Other fatigue (principal); I10 Essential (primary) hypertension
CPT/HCPCS: 36415; 80053; 80061; 83036; 84443; 85025

== ENCOUNTER → 2023-12-23 14:19 | Outpatient (CLI) | payer MEDICARE, BC, SELFPAY ==
--- NOTE | 2023-12-23 14:20 | DI.RAD.S_ITS ---
PROCEDURE: XR DEXA AXIAL SKELETON INDICATIONS: Bone density screen COMPARISON: [facility], ELISA, XR DEXA AXIAL SKELETON, 08/16/2020, 9:48. FINDINGS: Lumbar Spine: Bone mineral density 0.629 g/cm2, T score -3.5. There is interval 5.3% decrease in lumbar spine bone mineral density. Right Hip: Bone mineral density 0.625 g/cm2, T score -2.6. There is interval 5% decrease in right total hip bone mineral density. Right Femoral Neck: Bone mineral density 0.463 g/cm2, T score -3.5. There is interval 13% decrease in right femoral neck bone density. Left Forearm: Bone mineral density 0.465 g/cm2, T score -3.8. Fracture Risk Calculation (when applicable): 10-year fracture risk of a major osteoporotic fracture 32% and of a hip fracture 15% (T score greater or equal to -1.0 to: NORMAL) (T score from -1.1 to -2.4: OSTEOPENIA) (T score less than or equal to -2.5: OSTEOPOROSIS) IMPRESSION: Osteoporosis with increased fracture risk as above. Follow-up guidelines as follows: Osteoporosis: Consider a repeat DEXA and Vertebral Fracture Assessment (VFA) exam in 2 years or sooner if medically necessary, to reassess this patient's status. Osteopenia: Consider a repeat DEXA in 2-3 years to reassess this patient's status, or if there is a new clinical indication. Normal: Consider a repeat DEXA in 5 years or sooner, or if there is a new clinical indication. All treatment decisions require clinical judgment and consideration of individual patient factors, including patient preferences, comorbidities, previous drug use, risk factors not captured in the FRAX model (e.g., frailty, falls, vitamin D deficiency, increased bone turnover, interval significant decline in bone density ) and possible under- or over-estimation of fracture risk by FRAX. In addition, the NOF Guide recommends that FDA-approved medical therapies be considered in postmenopausal women and men age >= 50 years with a: * Hip or vertebral (clinical or morphometric) fracture * T-score of <=-2.5 at the spine or hip * Ten-year fracture probability by FRAX of >= 3% for hip fracture or >=20% for major osteoporotic fracture. People with diagnosed cases of osteoporosis or at high risk for fracture should have regular bone mineral density tests. For patients eligible for Medicare, routine testing is allowed once every 2 years. The testing frequency can be increased to one year for patients who have rapidly progressing disease, those who are receiving or discontinuing medical therapy to restore bone mass, or have additional risk factors. Dictated by: Emmanuel Carroll M.D. on 12/23/2023 at 19:53 Approved by: Emmanuel Carroll M.D. on 12/23/2023 at 19:57
== END ==
PROVIDERS: Family Provider Student in an Organized Health Care Education/Training Program; PCP Student in an Organized Health Care Education/Training Program; Referring Provider Student in an Organized Health Care Education/Training Program; Visit Provider Student in an Organized Health Care Education/Training Program
DX: M81.0 Age-related osteoporosis without current pathological fracture (principal)
CPT/HCPCS: 77080; 77081

== ENCOUNTER 2024-07-26 07:28 | Day surgery (SDC) | payer MEDICARE, BC, SELFPAY ==
--- NOTE | 2024-07-26 | PATH_ITS ---
[facility] Accession Number: [id number] No. of containers..01 Tissue . 01 Material submitted: . sigmoid colon - SIGMOID POLYP . 01 Diagnosis: SIGMOID COLON POLYP: Colonic mucosa with focal mucosal hyperplasia, suggestive of early development of hyperplastic polyp. MRV 07/29/2024 1423 Local . 01 Electronically signed: . Sujatha Courtney MD, Pathologist NPI- [id number] . 01 Gross description: . SIGMOID POLYP: Received in formalin is 1 fragment(s) of solis, soft tissue measuring 0.6 x 0.5 x 0.2 cm submitted entirely in 1 cassette(s) /SANDRA 07/27/2024 1857 Local . 01 Pathologist provided ICD-10: Z12.11, D12.5 . 01 CPT . 870857 Specimen Comment: A courtesy copy of this report has been sent to [facility] Pathology Performed at: [address] [address], [place], [place] [id number] MD Devonte Wilson MD Phone: [phone]
[2024-07-26] MEDS: LACTATED RINGERS 1,000 ML 42 ML IV (07:43)
[2024-07-26 07:50] VITALS: BP 143/72; PULSE 69; RESP 14; TEMP 36.8; O2SAT 100
--- NOTE | 2024-07-26 08:11 | PM.HP.IH.1 ---
History of Present Illness History of Present Illness Date Patient Seen: 07/26/24 Time Patient Seen: 08:11 Chief complaint: Screening Colonoscopy Narrative: 79-year-old white female with a diagnosis of endometrial cancer, status post hysterectomy 3 years ago, which showed microsatellite instability on pathologic review, has complaining about blood in the stool. She has been having episodes of constipation. She has been adding magnesium powder to her food which has not improved. She had an episode of straining which caused bleeding. Her last Cologuard was -3 years ago. Last colonoscopy was over 12 years ago. [facility] Medical History Bleeding internal hemorrhoids Blood in stool Osteoporosis (~2001) Medicare annual wellness visit, initial History of stroke HLD (hyperlipidemia) Fracture of femoral neck, left, closed Hearing loss (~2020) Uterine cancer (~2018) Cervical cancer (~2018) Essential hypertension Stroke, hemorrhagic (~2020) History of endometrial cancer Subarachnoid hemorrhage Surgical History Anesthesia Status post ventricular shunt placement (~06/2020) History of hysterectomy (~04/2019) Family History Father Stroke Mother No problems noted. Social History marital status: unknown household members: none lives independently: Yes occupational status: unemployed Smoking Status: Never smoker alcohol intake: current substance use type: does not use Meds Home Medications and Allergies Home Medications Medication Instructions Recorded Confirmed Type magnesium oxide 400 mg PO DAILY 08/07/20 06/23/24 History fish oil PO 10/31/22 06/23/24 History vitamin d3 PO 10/31/22 06/23/24 History calcium 650 mg-vitamin D3 12.5 tab PO 04/27/23 06/23/24 History mcg-vitamin K 40 mcg chewable tablet (Viactiv) vitamin B complex (B 1 tab PO DAILY 04/27/23 06/23/24 History Complex-Vitamin B12 tablet) vitamins A,C,Q-mfbm-gjkeqn 4,296 1 cap PO BID 04/27/23 06/23/24 History mcg-226 mg-90 mg capsule (ICaps AREDS) atorvastatin 40 mg tablet 40 mg PO DAILY increased lipids 01/04/24 07/26/24 Rx #90 tabs valsartan 160 mg tablet 160 mg PO DAILY #90 tabs 01/27/24 07/26/24 Rx Allergies Allergy/AdvReac Type Severity Reaction Status Date / Time denosumab [From Prolia] Allergy Mild rash all Verified 07/26/24 07:47 over body Review of Systems Review of Systems ROS: Yes All systems reviewed with the patient and are negative except as otherwise documented Exam Vital Signs (past 8 hours): - 07/26/24 07:50 Temperature 98.2 F Pulse Rate 69 Respiratory Rate 14 Blood Pressure 143/72 H Pulse Oximetry 100 Oxygen Delivery Method Room Air Oxygen Delivery Method Room Air Narrative Exam Narrative: Gen: NAD, sitting comfortably in bed, appears well HEENT: Sclera are anicteric, head is normocephalic and atraumatic, trachea is midline. CV: RRR, no JVD Resp: clear to auscultation bilaterally, equal chest wall movement bilaterally Abd: soft, nontender, normoactive bowel sounds Ext: no edema, full range of motion Neuro: Cranial nerves II-XII grossly intact, no focal deficits Skin: No erythema or ecchymosis Assessment & Plan Assessment and plan (1) Bleeding internal hemorrhoids: Status: Acute (2) Blood in stool: Status: Acute Assessment & Plan narrative: Patient presents for colonoscopy and banding of internal hemorrhoids Risks, benefits, alternatives to colonoscopy explained, including but not limited to bowel perforation or other serious complication requiring surgery at less than 1 in 5000 colonoscopies, abdominal pain, cramping or bleeding and less than 1% of colonoscopies, and the chances that we find a diagnosis that would require further intervention of about 2%. Patient understands that without lifestyle changes such as fiber supplementation, decreased sight time sitting on the toilet and decreased straining there is a high likelihood of recurrence of the hemorrhoids. Patient agrees to proceed with hemorrhoid banding at the time colonoscopy. Time-Based Coding :: [TOTAL MINUTES] spent with patient and on the chart (including review of chart, obtaining history, exam, reviewing outside data, placing orders, documenting exam and treatment plan, and counseling patient) on [DATE]. [employer] Document charge(s): No
--- NOTE | 2024-07-26 08:47 | PM.OP.COLON ---
Operative Date/Time/Diagnoses Date of procedure: 07/26/24 Time of procedure: 08:47 Pre-op diagnosis: Colon screening, bleeding internal hemorrhoids Post-op diagnosis: same Procedure & Clinicians Study performed: 1. Colonoscopy with cold snare polypectomy sigmoid polyp 2. Anoscopy with rubber-band ligation of internal hemorrhoid Same procedure as scheduled: Yes Indications: Blood per rectum Surgeon: Justin Pimentel Procedure Notes SCOAP/Timeout: Performed Procedure in detail: Time-out was performed. Mac was induced. Patient was placed in left lateral decubitus position. The perineum was inspected without any gross abnormality. Lubricated pediatric colonoscope was inserted and advanced to the cecum. The terminal ileum was intubated. The colonoscope was withdrawn slowly inspecting the circumference of the colon. Benign-appearing polyp was noted in the sigmoid near the rectosigmoid junction. This was removed completely with cold snare polypectomy and retrieved. Very small polyps may have been missed, prep quality was adequate. Retroflexed view of the rectum showed 1 large, prolapsed nonbleeding internal hemorrhoids. Lubricated anoscope was inserted. This hemorrhoid located in the left posterior quadrant was isolated with a CR atrial [place] suctioned and 2 rubber bands were applied. The scope was withdrawn the patient was taken to PACU in good condition. Scope withdrawal time: 12 Findings: internal hemorrhoids and polyp(s) Specimen(s): other (Sigmoid polyp) Complications: none Post-procedure Recommendations: Colonoscopy in 10 years (Next colonoscopy in 7 years if in exceptionally good health at age 86) and High fiber diet Follow up: as needed Disposition: PACU
[2024-07-26 08:50] VITALS: BP 113/62; PULSE 70; RESP 14; TEMP 36.3; O2SAT 99
[2024-07-26 08:56] VITALS: BP 113/57; PULSE 65; RESP 16; O2SAT 97
[2024-07-26 08:59] VITALS: BP 124/62; PULSE 68; RESP 13; TEMP 35.9; O2SAT 98
== END 2024-07-26 09:25 | disposition home or self-care (01) ==
PROVIDERS: Family Provider Student in an Organized Health Care Education/Training Program; PCP Student in an Organized Health Care Education/Training Program; Referring Provider Surgery; Visit Provider Surgery
PROC: 0DJD8ZZ Inspection of Lower Intestinal Tract, Via Natural or Artificial Opening Endoscopic (ICD-10-PCS; CPT 45378; principal; 2024-07-26 08:15)
DX: Z12.11 Encounter for screening for malignant neoplasm of colon (principal); K64.8 Other hemorrhoids; Z85.42 Personal history of malignant neoplasm of other parts of uterus; Z85.41 Personal history of malignant neoplasm of cervix uteri; D12.5 Benign neoplasm of sigmoid colon
CPT/HCPCS: 45385; 46221; J2405; J2704

== ENCOUNTER → 2024-11-09 11:28 | Outpatient (CLI) | payer MEDICARE, BC, SELFPAY ==
--- NOTE | 2024-11-09 11:31 | DI.MG.S_ITS ---
MM screening mammo BI: 11/09/2024. BI-RADS: 1 CLINICAL: 79-year old female for bilateral screening mammogram. Tyrer-Cuzick lifetime risk of 4.2%. Current reported family history of breast cancer: mother. Personal history of ovarian cancer. PRIOR EXAMS 09/29/2023, 09/22/2022, 09/19/2021, 08/24/2020. MAMMOGRAPHY TECHNIQUE: 2D and 3D (tomosynthesis) digital mammographic views obtained, with additional images as needed for full coverage. Current study was also evaluated with a Computer Aided Detection (CAD) system. DENSITY C. The breasts are heterogeneously dense, which may obscure small masses. MAMMOGRAPHY FINDINGS Bilateral: No suspicious mass, asymmetry, microcalcification, or other abnormality seen. IMPRESSION: * No evidence of malignancy. RECOMMENDATIONS Bilateral * Annual screening mammography. OVERALL ASSESSMENT CATEGORY BI-RADS-1: Negative. [employer] recommends annual screening mammography beginning at age 40 for women with average risk of breast cancer. ELECTRONICALLY SIGNED: Casper Zabala M.D. on 11/09/2024 at 04:28:15 PM PT Interpreting Station ID: [id number]
== END ==
LOC: MAMMO 11:30
PROVIDERS: PCP Student in an Organized Health Care Education/Training Program; Referring Provider Student in an Organized Health Care Education/Training Program; Visit Provider Student in an Organized Health Care Education/Training Program
DX: Z12.31 Encounter for screening mammogram for malignant neoplasm of breast (principal); R92.333 Mammographic heterogeneous density, bilateral breasts; Z85.43 Personal history of malignant neoplasm of ovary; Z80.3 Family history of malignant neoplasm of breast
CPT/HCPCS: 77063; 77067

== ENCOUNTER → 2024-12-05 09:38 | Outpatient (CLI) | payer MEDICARE, BC, SELFPAY ==
[2024-12-05 10:26] LABS: Add Manual Diff / Slide Review NO; Hematocrit 43.9 % (36-46); Hemoglobin 14.5 g/dL (12.0-16.0); Lymphocytes Absolute Auto 1400 /uL (1100-4500); Mean Corpuscular HGB Conc 33.0 % (30-36); Mean Corpuscular Hemoglobin 29.7 PG (26-34); Mean Corpuscular Volume 90.0 fL (80-100); Platelet Count 220 X10^3/uL (150-400)
[2024-12-05 10:54] LABS: Alanine Aminotransferase 22 IU/L (<35); Albumin 4.1 g/dL (3.5-5.0); Albumin Globulin Ratio 1.6 (1.0-2.8); Alkaline Phosphatase 85 U/L (38-126); Blood Urea Nitrogen 16 mg/dL (7-17); Calcium 9.9 mg/dL (8.4-10.2); Carbon Dioxide 29 mmol/L (22-32); Chloride 105 mmol/L (98-107); Cholesterol 118 mg/dL (140-199); Estimated Glomerular Filt Rate > 60 mL/min (>60); Globulin 2.5 g/dL (1.7-4.1); Glucose 96 mg/dL (70-99); HDL Cholesterol 58 mg/dL (40-60); HEMOLYSIS < 15 (0-50); Potassium 3.9 mmol/L (3.4-5.1); Sodium 140 mmol/L (137-145); Total Protein 6.6 g/dL (6.3-8.2); Triglycerides 74 mg/dL (35-150)
[2024-12-05 11:24] LABS: Thyroid Stimulating Hormone 1.50 uIU/mL (0.47-4.68)
== END ==
PROVIDERS: PCP Student in an Organized Health Care Education/Training Program; Referring Provider Student in an Organized Health Care Education/Training Program; Visit Provider Student in an Organized Health Care Education/Training Program
DX: I10 Essential (primary) hypertension (principal); Z79.899 Other long term (current) drug therapy
CPT/HCPCS: 36415; 80053; 80061; 84443; 85025

== ENCOUNTER → 2024-12-16 11:43 | Outpatient (CLI) | payer MEDICARE, BC, SELFPAY ==
--- NOTE | 2024-12-16 11:44 | DI.MG.S_ITS ---
US breast RT limited, MM diagnostic mammo unilat RT: 12/16/2024 BI-RADS: 2 CLINICAL: 79-year old female for right diagnostic mammogram and right diagnostic breast ultrasound. The patient presents for evaluation of a palpable abnormality in the right breast. History provided on the patient referral notes a vein-like structure under the breast/chest wall. Tyrer-Cuzick lifetime risk of 4.2%. Current reported family history of breast cancer: mother. Personal history of ovarian cancer. PRIOR EXAMS 11/09/2024, 09/29/2023, 09/22/2022, 09/19/2021. MAMMOGRAPHY TECHNIQUE: 2D and 3D (tomosynthesis) digital mammographic views obtained, with additional images as needed for full coverage. Current study was also evaluated with a Computer Aided Detection (CAD) system. ULTRASOUND TECHNIQUE: Real-time gentile scale and color doppler imaging of the area of clinical interest was performed with image documentation. TARGETED Right Breast Ultrasound: Real-time ultrasound exam was performed focused to area of clinical and/or imaging concern. DENSITY Right: C. The breast is heterogeneously dense, which may obscure small masses. MAMMOGRAPHY FINDINGS Right (finding-1): Upper Inner Quadrant, Middle depth: A skin marker was placed in the area of concern, and no mammographic abnormalities are identified or to account for concern by the patient of a palpable lump. No suspicious mass, asymmetry, microcalcification, or other abnormality seen. ULTRASOUND FINDINGS Right (finding-1): Upper Inner Quadrant: There is shunt tubing at the site of the patient's reported palpable abnormality in the upper inner quadrant of the right breast located at 1 to 3 o'clock, 8 cm from the nipple. The shunt tubing extends from the neck to the abdomen and likely represents a [employer] shunt. No suspicious sonographic finding with typically benign findings noted. IMPRESSION: Right * No evidence of malignancy with benign findings. RECOMMENDATIONS Right * Clinical follow-up is recommended with correlation with the patient's history for prior placement of a [employer] shunt. Bilateral * Annual screening mammography. COMMENTS: Findings and recommendations were conveyed to the patient during today's evaluation. OVERALL ASSESSMENT CATEGORY BI-RADS-2: Benign. The [employer] recommends annual screening mammography beginning at age 40 for women with average risk of breast cancer. ELECTRONICALLY SIGNED: Yessi Hartman M.D. on 12/16/2024 at 01:46:20 PM PT Interpreting Station ID: [id number]
== END ==
LOC: MAMMO 11:44
PROVIDERS: PCP Student in an Organized Health Care Education/Training Program; Referring Provider Student in an Organized Health Care Education/Training Program; Visit Provider Student in an Organized Health Care Education/Training Program
DX: N64.59 Other signs and symptoms in breast (principal); L98.9 Disorder of the skin and subcutaneous tissue, unspecified; R92.30 Dense breasts, unspecified
CPT/HCPCS: 76642; 77065; G0279